=== PATIENT | female | born 1940 | race Two or more races ===

== ENCOUNTER 2017-04-23 10:11 | Inpatient (IN) | payer OTHER ==
--- NOTE | 2017-04-23 10:59 | PDOC ---
Attending Attestation - Resident Resident Name: Audelia Moe - ED Attending Attestation I have performed the following: I have examined & evaluated the patient, The case was reviewed & discussed with the resident, I agree w/resident's findings & plan, Exceptions are as noted - HPI HPI: 04/23/17 11:16 76yo F no PMH p/w RUQ pain a/w nausea and 2 episodes of NBNB emesis. Pt had cup of chocolate for dinner. Also reports lightheadedness. Pain at times radiating to her back. Tried advil with no relief. Pain is sharp 8/10. Has never had similar pain in the past. No hx abd surgery. - Physicial Exam PE: 04/23/17 11:59 GENERAL: Awake, alert, and fully oriented, in no acute distress HEAD: No signs of trauma EYES: PERRLA, EOMI, sclera anicteric, conjunctiva clear ENT: Auricles normal inspection, hearing grossly normal, nares patent, oropharynx clear without exudates. Moist mucosa NECK: Normal ROM, supple, no lymphadenopathy, JVD, or masses LUNGS: Breath sounds equal, clear to auscultation bilaterally. No wheezes, and no crackles HEART: Regular rate and rhythm, normal S1 and S2, no murmurs, rubs or gallops ABDOMEN: Soft, +RUQ and RLQ ttp, upper>lower, normoactive bowel sounds. No guarding, no rebound. No masses EXTREMITIES: Normal range of motion, no edema. No clubbing or cyanosis. No cords, erythema, or tenderness NEUROLOGICAL: Normal speech, cranial nerves intact, negative pronator drift, 5/ 5 strength in all 4 extremities, normal sensation to light touch in all 4 extremities, normal cerebellar exam, normal gait, normal reflexes and tone SKIN: Warm, Dry, normal turgor, no rashes or lesions noted. - Medical Decision Making 04/23/17 12:00 76-year-old female who denies past medical history presents with R sided abdominal pain. Vitals wnl. Exam with RUQ and RLQ ttp. DDx includes but not limited to cholecystitis versus appendicitis versus colitis versus pancreatitis. Will check labs, UA and start with a right upper quadrant ultrasound. 04/23/17 17:[address] scan with intestinal narrowing concerning for local diverticulitis versus malignancy. Will treat for acute diverticulitis. I discussed these findings with the patient's son Roosevelt on the phone and stated that we will treat her diverticulitis with that she must follow-up with the GI doctor to be evaluated for cancer. Roosevelt reports he is on his way to the hospital. 04/23/17 19:04 Upon PO challenging the patient, she had multiple episodes of vomiting. She also began to report left sided abdominal pain. At this point the decision was made to admit the patient for further evaluation and management given her PO intolerance and recurrent pain. Case discussed in detail with admitting physician including history, physical exam and ancillary studies. Admitting physician has assumed care for the patient, will follow all pending diagnostics and will complete the evaluation and treatment.
[2017-04-23] MEDS ORDERED: ACETAMINOPHEN 1000 MG/100 ML VIAL (NON FORMULARY) IVPB ONE (11:27)
[2017-04-23] MEDS ORDERED: SODIUM CHLORIDE 0.9% 1000 ML INFUS.BAG IV ONE ×2 (11:27→18:25)
[2017-04-23] MEDS ORDERED: ONDANSETRON 4 MG/2 ML VIAL IVPUSH ONE ×2 (11:29→18:25)
[2017-04-23 12:04] LABS: BASOPHIL 0.5 % (0-2.0); MCH 28.9 pg (25.7-33.7); MEAN CELL VOLUME 87.5 fl (80-96); MEAN PLT VOLUME 7.2 fl (7.5-11.1); NEUTROPHILS 79.4 % (42.8-82.8); PLATELET COUNT 335 K/MM3 (134-434); RDW 13.5 % (11.6-15.6); WHITE BLOOD COUNT 7.8 K/mm3 (4.0-10.0)
[2017-04-23 12:26] LABS: ANION GAP 5 (8-16); CALCIUM 8.6 mg/dL (8.5-10.1); CO2 28 mmol/L (21-32); CREATININE 0.9 mg/dL (0.55-1.02); GLUCOSE,RANDOM 128 mg/dL (74-106); SGOT/AST 18 U/L (15-37); SGPT/ALT 30 U/L (12-78)
[2017-04-23 12:30] LABS: ALK PHOS 75 U/L (45-117); BILIRUBIN,TOTAL 0.9 mg/dL (0.2-1.0); CPK 86 IU/L (26-192); TOT PROT 7.5 g/dl (6.4-8.2); TROPONIN I < 0.02 ng/ml (0.00-0.05)
--- NOTE | 2017-04-23 13:13 | PDOC ---
History of Present Illness - General Chief Complaint: Pain Stated Complaint: ABD PAIN Time Seen by Provider: 04/23/17 10:43 History Source: Patient Exam Limitations: No Limitations - History of Present Illness Initial Comments: This is a 76 YOF with unremarkable PMH and no surgeries who p/w right-sided abdominal pain worse in the RLQ. The pain started last night at 10 pm and has been a constant 8/10 squeezing/pulsating since then, and radiates to the left upper back. She has haven Advil without relief. She also has had persistent nausea since the onset and two episodes of vomiting yesterday night. She notes mild dizziness and headache, but denies any fever, chills, dysuria, diarrhea, blood in the vomit or stool or urine, or other symptoms. She ate a cup of chocolate for dinner yesterday evening, but no additional greasy or unhealthy foods. Past History - Past Medical History Allergies/Adverse Reactions: Allergies Allergy/AdvReac Type Severity Reaction Status Date / Time No Known Allergies Allergy Verified 04/23/17 13:11 Home Medications: Ambulatory Orders Ciprofloxacin HCl [Cipro] 500 mg PO BID #14 tablet 04/23/17 Metronidazole 500 mg PO TID #20 tablet 04/23/17 COPD: No - Suicide/Smoking/Psychosocial Hx Smoking History: Never smoked Have you smoked in the past 12 months: No Information on smoking cessation initiated: No Hx Alcohol Use: No Drug/Substance Use Hx: No Substance Use Type: None Review of Systems - Review of Systems Constitutional: No: Chills, Fever, Unexplained wgt Loss HEENTM: No: Nose Congestion, Throat Pain Respiratory: No: Cough, Shortness of Breath Cardiac (ROS): No: Chest Pain, Palpitations ABD/GI: Yes: Nausea, Vomiting, Other (abdominal pain). No: Constipated, Diarrhea : No: Burning, Dysuria Musculoskeletal: Yes: Back Pain. No: Neck Pain Integumentary: No: Bruising, Rash Neurological: Yes: Headache, Dizziness. No: Numbness, Tingling, Weakness Endocrine: No: Unexplained Weight Gain, Unexplained Weight Loss *Physical Exam - Vital Signs Last Vital Signs Temp Pulse Resp BP Pulse Ox 98.4 F 72 17 152/92 98 04/23/17 10:15 04/23/17 10:15 04/23/17 10:15 04/23/17 10:15 04/23/17 10:15 - Physical Exam General Appearance: Yes: Nourished, Appropriately Dressed, Other (patient is well-appearing, conversive, no distress, answering appropriately, accompanied by son who is supportive). No: Apparent Distress HEENT: positive: EOMI, MAT, Normal Voice, Hearing Grossly Normal. negative: Scleral Icterus (R), Scleral Icterus (L), Nasal Congestion Neck: positive: Trachea midline, Supple. negative: Tender, Rigid Respiratory/Chest: positive: Lungs Clear, Normal Breath Sounds. negative: Respiratory Distress, Crackles, Rhonchi, Stridor, Wheezing Cardiovascular: positive: Regular Rhythm, Regular Rate. negative: Murmur Gastrointestinal/Abdominal: positive: Normal Bowel Sounds, Tender (mild RLQ ttp) , Soft. negative: Organomegaly, Pulsatile Mass, Distended, Guarding, Rebound, Hernia Musculoskeletal: positive: Normal Inspection. negative: Decreased Range of Motion, Vertebral Tenderness Extremity: positive: Normal Capillary Refill, Normal Inspection, Normal Range of Motion. negative: Tender, Cyanosis Integumentary: positive: Normal Color, Dry, Warm. negative: Erythema, Rash, Bruising Neurologic: positive: mantel craftsman II-XII NML intact, Fully Oriented, Alert, Normal Mood/ Affect, Normal Response, Motor Strength 5/5 ED Treatment Course - LABORATORY CBC & Chemistry Diagram: 04/24/17 06:30 04/24/17 06:30 - ADDITIONAL ORDERS Additional order review: Laboratory Results 04/23/17 04/23/17 04/23/17 12:00 12:00 12:00 Sodium 136 Potassium 4.0 Chloride 103 Carbon Dioxide 28 Anion Gap 5 L BUN 18 Creatinine 0.9 Creat Clearance w eGFR > 60 Random Glucose 128 H Lactic Acid 1.7 Calcium 8.6 Total Bilirubin 0.9 AST 18 ALT 30 Alkaline Phosphatase 75 Creatine Kinase 86 Troponin I < 0.02 Total Protein 7.5 Albumin 4.0 Lipase 148 04/23/17 12:00 RBC 4.98 MCV 87.5 MCHC 33.0 RDW 13.5 MPV 7.2 L Neutrophils % 79.4 Lymphocytes % 18.0 Monocytes % 2.1 L Eosinophils % 0.0 Basophils % 0.5 - RADIOLOGY Radiology Studies Ordered: Category Date Time Status ABDOMEN US -LIMITED [US] Stat Ultrasound 04/23/17 11:25 Ordered Medical Decision Making - Medical Decision Making 76 YOF p/w RUQ and RLQ pain, nausea, vomiting, dizziness, COLMENARES. Never had colonoscopy in her life. On exam she has RLQ ttp, no peritoneal signs, 152/92 otherwise VS wnl. DDX IBNLT cholecystitis, appendicitis, diverticulitis, colitis, malignancy, pancreatitis, PUD, gastritis, etc. Ordered is CBCD, CMP, lipase, cardiac panel, UA, EKG, tylenol, zofran, fluids. 04/23/17 16:47 Pt states pain well controlled now. CT resulted with narrowing of a focus in ascending colon possibly focal diverticulitis but could be malignancy. Patient wishes to eat and to go home. States she can follow up next Thursday with GI. Will treat for diverticulitis now with instructions to follow up closely with GI. Referral info given for GI clinic. Return precautions discussed and she will return for fever, night sweats, weight loss, rectal bleeding, LOC, etc. 04/23/17 18:[address] Phuc Louis whose team will be consulting tomorrow. Dr. Louis recommends NPO, IVF, Levaquin, and Flagyl. 04/23/17 19:00 Patient has been moved to 9B d/t vomiting and increased abdominal pain. Patient is given IV Zofran, Morphine, IVF. Ordered is lactate and CBCD, EKG. Patient's care is signed out to Dr. Irizarry at the end of my shift. *DC/Admit/Observation/Transfer Diagnosis at time of Disposition: Diverticulitis - Discharge Dispostion Condition at time of disposition: Guarded Admit: Yes - Prescriptions - Referrals - Patient Instructions - Post Discharge Activity
[2017-04-23 14:04] LABS: URINE APPEARANCE CLEAR; URINE BILIRUBIN NEGATIVE (NEGATIVE); URINE BLOOD NEGATIVE (NEGATIVE); URINE COLOR STRAW; URINE GLUCOSE (UA) 1+ (NEGATIVE); URINE KETONE TRACE (NEGATIVE); URINE NITRITE NEGATIVE (NEGATIVE); URINE PROTEIN NEGATIVE (NEGATIVE); URINE UROBILINOGEN NEGATIVE mg/dL (0.2-1.0)
--- NOTE | 2017-04-23 16:21 | EKG ---
Test Reason : Blood Pressure : / mmHG Vent. Rate : 091 BPM Atrial Rate : 091 BPM P-R Int : 158 ms QRS Dur : 070 ms QT Int : 376 ms P-R-T Axes : 043 -13 048 degrees QTc Int : 462 ms NORMAL SINUS RHYTHM NORMAL ECG WHEN COMPARED WITH ECG OF 12-APR-2008 08:47, NONSPECIFIC T WAVE ABNORMALITY NO LONGER EVIDENT IN INFERIOR LEADS NONSPECIFIC T WAVE ABNORMALITY NOW EVIDENT IN LATERAL LEADS Confirmed by CHARO DAVIDSON, WENDY ([id number]) on 04/23/2017 4:21:21 PM Referred By: Confirmed By:WENDY MANCILLA MD
[2017-04-23] MEDS ORDERED: metroNIDAZOLE 250 MG TABLET PO ONE (17:23)
[2017-04-23] MEDS ORDERED: CIPROFLOXACIN 500 MG TABLET (RESTRICTED TO ID) PO ONE (17:23)
[2017-04-23] MEDS ORDERED: metroNIDAZOLE 250 MG TABLET ONE (18:01)
[2017-04-23] MEDS ORDERED: morphine CARPU-JECT 4 MG/1 ML DISP.SYRIN IVPUSH ONE (18:28)
[2017-04-23] MEDS ORDERED: ONDANSETRON 4 MG/2 ML VIAL ONE (18:28)
[2017-04-23] MEDS ORDERED: morphine SULFATE 4 MG/ML VIAL ONE (18:30)
[2017-04-23] MEDS ORDERED: METRONIDAZOLE 500 MG PREMIXED 500 MG/100 ML MG IVPB ONE ×2 (18:31→19:00)
[2017-04-23] MEDS ORDERED: LEVOFLOXACIN 750 MG IVPB 750 MG/150 ML BAG IVPB ONE ×2 (18:31→19:00)
[2017-04-23 19:13] LABS: URINE LEUK ESTERASE Negative (NEGATIVE)
[2017-04-23 19:41] LABS: BASOPHIL 0.6 % (0-2.0); EOSINOPHIL 0.1 % (0-4.5); MCH 29.5 pg (25.7-33.7); MCHC 33.4 g/dl (32.0-36.0); MEAN CELL VOLUME 88.1 fl (80-96); NEUTROPHILS 78.9 % (42.8-82.8); RDW 13.5 % (11.6-15.6); WHITE BLOOD COUNT 9.4 K/mm3 (4.0-10.0)
--- NOTE | 2017-04-23 20:16 | PN ---
Teaching Attending Note Name of Resident: Oly Cm ATTENDING PHYSICIAN STATEMENT I saw and evaluated the patient. I reviewed the resident's note and discussed the case with the resident. I agree with the resident's findings and plan as documented. SUBJECTIVE: OBJECTIVE: Vital Signs Temperature 98.4 F 04/23/17 10:15 Pulse Rate 86 04/23/17 19:30 Respiratory Rate 16 04/23/17 19:30 Blood Pressure 151/99 04/23/17 19:30 O2 Sat by Pulse Oximetry (%) 95 04/23/17 19:30 CBC, BMP 04/23/17 19:28 04/23/17 12:00 Urine Test Results Urine Color Straw 04/23/17 13:46 Urine Appearance Clear 04/23/17 13:46 Urine pH 7.0 (5.0-8.0) 04/23/17 13:46 Ur Specific [place] 1.012 (1.001-1.035) 04/23/17 13:46 Urine Protein Negative (NEGATIVE) 04/23/17 13:46 Urine Glucose (UA) 1+ (NEGATIVE) H 04/23/17 13:46 Urine Ketones Trace (NEGATIVE) H 04/23/17 13:46 Urine Blood Negative (NEGATIVE) 04/23/17 13:46 Urine Nitrite Negative (NEGATIVE) 04/23/17 13:46 Urine Bilirubin Negative (NEGATIVE) 04/23/17 13:46 Ur Leukocyte Esterase Negative (NEGATIVE) 04/23/17 13:46 ASSESSMENT AND PLAN:
--- NOTE | 2017-04-23 20:42 | HP ---
CHIEF COMPLAINT: PCP: HISTORY OF PRESENT ILLNESS: ER course was notable for: (1) (2) (3) Recent Travel: PAST MEDICAL HISTORY: PAST SURGICAL HISTORY: Social History: Smoking: Alcohol: Drugs: Family History: Allergies No Known Allergies Allergy (Verified 04/23/17 13:11) HOME MEDICATIONS: Home Medications Medication Instructions Recorded Ciprofloxacin HCl [Cipro] 500 mg PO BID #14 tablet 04/23/17 Metronidazole 500 mg PO TID #20 tablet 04/23/17 REVIEW OF SYSTEMS CONSTITUTIONAL: Absent: fever, chills, diaphoresis, generalized weakness, malaise, loss of appetite, weight change HEENT: Absent: rhinorrhea, nasal congestion, throat pain, throat swelling, difficulty swallowing, mouth swelling, ear pain, eye pain, visual changes CARDIOVASCULAR: Absent: chest pain, syncope, palpitations, irregular heart rate, lightheadedness , peripheral edema RESPIRATORY: Absent: cough, shortness of breath, dyspnea with exertion, orthopnea, wheezing, stridor, hemoptysis GASTROINTESTINAL: Absent: abdominal pain, abdominal distension, nausea, vomiting, diarrhea, constipation, melena, hematochezia GENITOURINARY: Absent: dysuria, frequency, urgency, hesitancy, hematuria, flank pain, genital pain MUSCULOSKELETAL: Absent: myalgia, arthralgia, joint swelling, back pain, neck pain SKIN: Absent: rash, itching, pallor HEMATOLOGIC/IMMUNOLOGIC: Absent: easy bleeding, easy bruising, lymphadenopathy, frequent infections ENDOCRINE: Absent: unexplained weight gain, unexplained weight loss, heat intolerance, cold intolerance NEUROLOGIC: Absent: headache, focal weakness or paresthesias, dizziness, unsteady gait, seizure, mental status changes, bladder or bowel incontinence PSYCHIATRIC: Absent: anxiety, depression, suicidal or homicidal ideation, hallucinations. PHYSICAL EXAMINATION Vital Signs - 24 hr 04/23/17 04/23/17 10:15 19:30 Temperature 98.4 F Pulse Rate 72 Pulse Rate [ 86 Right] Respiratory 17 16 Rate Blood Pressure 152/92 Blood Pressure 151/99 [Left Arm] O2 Sat by Pulse 98 95 Oximetry (%) GENERAL: Awake, alert, and fully oriented, in no acute distress. HEAD: Normal with no signs of trauma. EYES: Pupils equal, round and reactive to light, extraocular movements intact, sclera anicteric, conjunctiva clear. No lid lag. EARS, NOSE, THROAT: Ears normal, nares patent, oropharynx clear without exudates. Moist mucous membranes. NECK: Normal range of motion, supple without lymphadenopathy, JVD, or masses. LUNGS: Breath sounds equal, clear to auscultation bilaterally. No wheezes, and no crackles. No accessory muscle use. HEART: Regular rate and rhythm, normal S1 and S2 without murmur, rub or gallop. ABDOMEN: Soft, nontender, not distended, normoactive bowel sounds, no guarding, no rebound, no masses. No hepatomegaly or splenomegaly. MUSCULOSKELETAL: Normal range of motion at all joints. No bony deformities or tenderness. No CVA tenderness. UPPER EXTREMITIES: 2+ pulses, warm, well-perfused. No cyanosis. No clubbing. No peripheral edema. LOWER EXTREMITIES: 2+ pulses, warm, well-perfused. No calf tenderness. No peripheral edema. NEUROLOGICAL: Cranial nerves II-XII intact. Normal speech. Normal gait. PSYCHIATRIC: Cooperative. Good eye contact. Appropriate mood and affect. SKIN: Warm, dry, normal turgor, no rashes or lesions noted, normal capillary refill. Laboratory Results - last 24 hr 04/23/17 04/23/17 04/23/17 12:00 12:00 12:00 WBC 7.8 RBC 4.98 Hgb 14.4 Hct 43.6 MCV 87.5 MCH 28.9 MCHC 33.0 RDW 13.5 Plt Count 335 MPV 7.2 L Neutrophils % 79.4 Lymphocytes % 18.0 Monocytes % 2.1 L Eosinophils % 0.0 Basophils % 0.5 Platelet Comment Sodium 136 Potassium 4.0 Chloride 103 Carbon Dioxide 28 Anion Gap 5 L BUN 18 Creatinine 0.9 Creat Clearance w eGFR > 60 Random Glucose 128 H Lactic Acid Calcium 8.6 Total Bilirubin 0.9 AST 18 ALT 30 Alkaline Phosphatase 75 Creatine Kinase 86 Troponin I < 0.02 Total Protein 7.5 Albumin 4.0 Lipase 148 Urine Color Urine Appearance Urine pH Ur Specific [place] Urine Protein Urine Glucose (UA) Urine Ketones Urine Blood Urine Nitrite Urine Bilirubin Urine Urobilinogen Ur Leukocyte Esterase 04/23/17 04/23/17 04/23/17 12:00 13:46 19:28 WBC 9.4 RBC 4.43 Hgb 13.0 Hct 39.0 MCV 88.1 MCH 29.5 MCHC 33.4 RDW 13.5 Plt Count No Result Required. MPV Neutrophils % 78.9 Lymphocytes % 13.1 D Monocytes % 7.3 D Eosinophils % 0.1 D Basophils % 0.6 Platelet Comment Sodium Potassium Chloride Carbon Dioxide Anion Gap BUN Creatinine Creat Clearance w eGFR Random Glucose Lactic Acid 1.7 Calcium Total Bilirubin AST ALT Alkaline Phosphatase Creatine Kinase Troponin I Total Protein Albumin Lipase Urine Color Straw Urine Appearance Clear Urine pH 7.0 Ur Specific [place] 1.012 Urine Protein Negative Urine Glucose (UA) 1+ H Urine Ketones Trace H Urine Blood Negative Urine Nitrite Negative Urine Bilirubin Negative Urine Urobilinogen Negative Ur Leukocyte Esterase Negative 04/23/17 19:28 WBC RBC Hgb Hct MCV MCH MCHC RDW Plt Count MPV Neutrophils % Lymphocytes % Monocytes % Eosinophils % Basophils % Platelet Comment Sodium Potassium Chloride Carbon Dioxide Anion Gap BUN Creatinine Creat Clearance w eGFR Random Glucose Lactic Acid 1.2 Calcium Total Bilirubin AST ALT Alkaline Phosphatase Creatine Kinase Troponin I Total Protein Albumin Lipase Urine Color Urine Appearance Urine pH Ur Specific [place] Urine Protein Urine Glucose (UA) Urine Ketones Urine Blood Urine Nitrite Urine Bilirubin Urine Urobilinogen Ur Leukocyte Esterase ASSESSMENT/PLAN:
--- NOTE | 2017-04-23 22:04 | PDOC ---
*Physical Exam - Vital Signs Last Vital Signs Temp Pulse Resp BP Pulse Ox 98.4 F 84 16 137/83 95 04/23/17 10:15 04/23/17 20:48 04/23/17 20:48 04/23/17 20:48 04/23/17 20:48 ED Treatment Course - LABORATORY CBC & Chemistry Diagram: 04/23/17 19:28 04/23/17 12:00 - ADDITIONAL ORDERS Additional order review: Laboratory Results 04/23/17 04/23/17 04/23/17 13:46 12:00 12:00 Sodium Potassium Chloride Carbon Dioxide Anion Gap BUN Creatinine Creat Clearance w eGFR Random Glucose Lactic Acid 1.7 Calcium Total Bilirubin AST ALT Alkaline Phosphatase Creatine Kinase Troponin I Total Protein Albumin Lipase 148 Urine Color Straw Urine Appearance Clear Urine pH 7.0 Ur Specific [place] 1.012 Urine Protein Negative Urine Glucose (UA) 1+ H Urine Ketones Trace H Urine Blood Negative Urine Nitrite Negative Urine Bilirubin Negative Urine Urobilinogen Negative Ur Leukocyte Esterase Negative 04/23/17 12:00 Sodium 136 Potassium 4.0 Chloride 103 Carbon Dioxide 28 Anion Gap 5 L BUN 18 Creatinine 0.9 Creat Clearance w eGFR > 60 Random Glucose 128 H Lactic Acid Calcium 8.6 Total Bilirubin 0.9 AST 18 ALT 30 Alkaline Phosphatase 75 Creatine Kinase 86 Troponin I < 0.02 Total Protein 7.5 Albumin 4.0 Lipase Urine Color Urine Appearance Urine pH Ur Specific [place] Urine Protein Urine Glucose (UA) Urine Ketones Urine Blood Urine Nitrite Urine Bilirubin Urine Urobilinogen Ur Leukocyte Esterase 04/23/17 12:00 RBC 4.98 MCV 87.5 MCHC 33.0 RDW 13.5 MPV 7.2 L Neutrophils % 79.4 Lymphocytes % 18.0 Monocytes % 2.1 L Eosinophils % 0.0 Basophils % 0.5 - Medications Given in the ED: ED Medications Discontinued Medications Generic Name Dose Route Start Last Admin Trade Name Freq PRN Reason Stop Dose Admin Acetaminophen 1,000 mg 04/23/17 11:27 04/23/17 13:10 Ofirmev Injection - IVPB 04/23/17 11:28 1,000 mg ONCE ONE Administration Ciprofloxacin 500 mg 04/23/17 17:23 04/23/17 18:40 Cipro (Restricted To Id) PO 04/23/17 17:24 Not Given ONCE ONE Metronidazole 500 mg in 100 mls @ 100 mls/hr 04/23/17 18:31 04/23/17 19:06 Flagyl 500mg Premixed Ivpb - IVPB 04/23/17 19:30 100 mls/hr ONCE ONE Administration Levofloxacin 750 mg in 150 mls @ 100 mls/hr 04/23/17 18:31 04/23/17 19:40 Levaquin 750 Mg Premixed Ivpb - IVPB 04/23/17 20:00 100 mls/hr ONCE ONE Administration Metronidazole 500 mg 04/23/17 17:23 04/23/17 18:40 Flagyl - PO 04/23/17 17:24 Not Given ONCE ONE Morphine Sulfate 2 mg 04/23/17 18:28 04/23/17 18:40 Morphine Injection - IVPUSH 04/23/17 18:29 2 mg ONCE ONE Administration Ondansetron HCl 4 mg 04/23/17 11:29 04/23/17 13:10 Zofran Injection IVPUSH 04/23/17 11:30 4 mg ONCE ONE Administration Ondansetron HCl 4 mg 04/23/17 18:25 04/23/17 18:39 Zofran Injection IVPUSH 04/23/17 18:26 4 mg ONCE ONE Administration Sodium Chloride 1,000 ml 04/23/17 11:27 04/23/17 13:07 Normal Saline - IV 04/23/17 11:28 1,000 ml ONCE ONE Administration Sodium Chloride 1,000 ml 04/23/17 18:25 04/23/17 18:38 Normal Saline - IV 04/23/17 18:26 1,000 ml ONCE ONE Administration Medical Decision Making - Medical Decision Making 04/23/17 22:06 patient signed out from dr. Moe CBC, Lactate, improved. Patient admitted to Dr. Carlson for diverticulitis. *DC/Admit/Observation/Transfer Diagnosis at time of Disposition: Diverticulitis - Discharge Dispostion Condition at time of disposition: Guarded Admit: Yes - Prescriptions - Referrals - Patient Instructions - Post Discharge Activity
[2017-04-23] MEDS ORDERED: PROMETHAZINE HCL 25 MG/1 ML VIAL IVPUSH PRN (22:06)
[2017-04-23] MEDS ORDERED: ACETAMINOPHEN 1000 MG/100 ML VIAL (NON FORMULARY) IVPB PRN (22:19)
[2017-04-23 22:34] VITALS: BMI 29.3
[2017-04-23] MEDS: HEPARIN NA (PORCINE) 5,000 UNITS/ML 1ML VIAL SQ SCH (23:32)
[2017-04-23] MEDS: LACTATED RINGERS SOLUTION 1,000 ML IV SCH (23:33)
[2017-04-24] MEDS ORDERED: CEFEPIME 2 GM in DEXTROSE 5%-WATER - 100 ML IVPB ONE (00:30)
[2017-04-24] MEDS: morphine SULFATE 4 MG/ML VIAL IVPUSH PRN ×2 (00:53→12:57)
[2017-04-24] MEDS: METRONIDAZOLE 500 MG PREMIXED 500 MG/100 ML MG IVPB SCH ×4 (02:42→22:59)
[2017-04-24 08:20] LABS: ALBUMIN 3.6 g/dl (3.4-5.0); ANION GAP 9 (8-16); BASOPHIL 0.3 % (0-2.0); CALCIUM 8.4 mg/dL (8.5-10.1); CO2 25 mmol/L (21-32); EOSINOPHIL 0.3 % (0-4.5); GLUCOSE,RANDOM 99 mg/dL (74-106); MAGNESIUM 1.9 mg/dL (1.8-2.4); MCHC 33.1 g/dl (32.0-36.0); MEAN CELL VOLUME 87.6 fl (80-96); MEAN PLT VOLUME 8.2 fl (7.5-11.1); NEUTROPHILS 65.7 % (42.8-82.8); PLATELET COUNT 299 K/MM3 (134-434); RDW 13.5 % (11.6-15.6); SGOT/AST 18 U/L (15-37); SGPT/ALT 27 U/L (12-78); WHITE BLOOD COUNT 8.1 K/mm3 (4.0-10.0)
[2017-04-24 08:22] LABS: ALK PHOS 63 U/L (45-117); BILIRUBIN,TOTAL 1.3 mg/dL (0.2-1.0); TOT PROT 6.7 g/dl (6.4-8.2)
[2017-04-24] MEDS: HEPARIN NA (PORCINE) 5,000 UNITS/ML 1ML VIAL SQ SCH ×2 (09:53→22:59)
--- NOTE | 2017-04-24 10:03 | EKG ---
Test Reason : Blood Pressure : / mmHG Vent. Rate : 081 BPM Atrial Rate : 081 BPM P-R Int : 146 ms QRS Dur : 076 ms QT Int : 388 ms P-R-T Axes : 026 -16 030 degrees QTc Int : 450 ms NORMAL SINUS RHYTHM NORMAL ECG WHEN COMPARED WITH ECG OF 23-APR-2017 14:15, NO SIGNIFICANT CHANGE WAS FOUND Confirmed by ADELINA CRUZ MD ([id number]) on 04/24/2017 10:02:53 AM Referred By: Confirmed By:ADELINA CRUZ MD
--- NOTE | 2017-04-24 10:41 | HP ---
Admitting History and Physical - Admission History of Present Illness: This is a 76 YOF with unremarkable PMH and no surgeries who p/w right-sided abdominal pain worse in the RLQ. The pain started last night at 10 pm and has been a constant 8/10 squeezing/pulsating since then, and radiates to the left upper back. She has haven Advil without relief. She also has had persistent nausea since the onset and two episodes of vomiting yesterday night. She notes mild dizziness and headache, but denies any fever, chills, dysuria, diarrhea, blood in the vomit or stool or urine, or other symptoms. She ate a cup of chocolate for dinner yesterday evening, but no additional greasy or unhealthy foods in ER she got iv fluids, antiemetics, iv abx patient complaining of nausea and abdominal discomfort in bed History Source: Patient, Medical Record - Smoking History Smoking history: Never smoked Have you smoked in the past 12 months: No - Alcohol/Substance Use Hx Alcohol Use: No Home Medications - Allergies Allergies/Adverse Reactions: Allergies Allergy/AdvReac Type Severity Reaction Status Date / Time No Known Allergies Allergy Verified 04/23/17 13:11 - Home Medications Home Medications: Ambulatory Orders Ciprofloxacin HCl [Cipro] 500 mg PO BID #14 tablet 04/23/17 Metronidazole 500 mg PO TID #20 tablet 04/23/17 Review of Systems - Review of Systems Gastrointestinal: reports: Abdominal Pain, Nausea Physical Examination Vital Signs: Vital Signs Temperature 99 F 04/24/17 10:24 Pulse Rate 81 04/24/17 10:24 Respiratory Rate 18 04/24/17 10:24 Blood Pressure 123/63 04/24/17 10:24 O2 Sat by Pulse Oximetry (%) 95 04/23/17 20:48 Constitutional: Yes: Mild Distress Neck: Yes: Trachea Midline Cardiovascular: Yes: Regular Rate and Rhythm, S1, S2 Respiratory: Yes: CTA Bilaterally Gastrointestinal: Yes: Hyperactive Bowel Sounds, Tenderness (in the RLQ and LLQ) Edema: No Neurological: Yes: Alert, Oriented Labs: CBC, BMP 04/24/17 06:30 04/24/17 06:30 Imaging - Results Cat Scan: Report Reviewed (narrow irregularity of mid ascending colon) Problem List - Problems (1) Diverticulitis Assessment/Plan: iv abx iv hydration antiemetics pain control dvt ppx Code(s): K57.92 - DVTRCLI OF INTEST, PART UNSP, W/O PERF OR ABSCESS W/O BLEED (2) Abnormal computed tomography of gastrointestinal tract Assessment/Plan: appreciate GI eval start BRAT diet, iv hydration iv abx Code(s): R93.3 - ABNORMAL FINDINGS ON DX IMAGING OF PRT DIGESTIVE TRACT (3) Fluid in endometrial cavity Assessment/Plan: pelvic sono ordered Code(s): N85.9 - NONINFLAMMATORY DISORDER OF UTERUS, UNSPECIFIED
--- NOTE | 2017-04-24 11:28 | CON.GI ---
Consult Consult Specialty:: GI - History of Present Illness History of Present Illness: Chart reviewed. Events noted A 76 yof with acute onset abdominal pain 3 days ago with nausea and chills. The pain is generalized, deep, non-radiating, 10/10 at the onset, now 5/10. No diarrhea, joint, skin symptoms. No dysphagia, odynophagia, jaundice, melena, hematochezia. Cannot recall any unusual foods. no eating out, exposure to ill. No new medications, chronic NSAIDs, recent antibiotics. Never had a colonoscopy. A CT a/p showed an ascending colon inflammation. - History Source History Provided By: Patient Limitations to Obtaining History: Language Barrier (history obtained via transaltor) - Alcohol/Substance Use Hx Alcohol Use: No - Smoking History Smoking history: Never smoked Have you smoked in the past 12 months: No Home Medications - Allergies Allergies/Adverse Reactions: Allergies Allergy/AdvReac Type Severity Reaction Status Date / Time No Known Allergies Allergy Verified 04/23/17 13:11 - Home Medications Home Medications: Ambulatory Orders Ciprofloxacin HCl [Cipro] 500 mg PO BID #14 tablet 04/23/17 Metronidazole 500 mg PO TID #20 tablet 04/23/17 Family Disease History - Family Disease History Family History: Unremarkable (non-contributory) Review of Systems Findings/Remarks: Please refer to H&P - Review of Systems Constitutional: reports: Chills Physical Exam-GI Vital Signs: Vital Signs Temperature 99 F 04/24/17 10:24 Pulse Rate 81 04/24/17 10:24 Respiratory Rate 18 04/24/17 10:24 Blood Pressure 123/63 04/24/17 10:24 O2 Sat by Pulse Oximetry (%) 95 04/23/17 20:48 Labs: CBC, BMP 04/24/17 06:30 04/24/17 06:30 Imaging - Results Cat Scan: Report Reviewed Problem List - Problems (1) Abnormal computed tomography of gastrointestinal tract Code(s): R93.3 - ABNORMAL FINDINGS ON DX IMAGING OF PRT DIGESTIVE TRACT Assessment/Plan Acute inflammation likely. diverticulitis, vs colitis. Cannot rule out neoplasm. Never had colonoscopy. No obvious red flags in history Agree with cipro/flagyl would add antiemetic PRN PO/IV hydration BRAT diet Colonoscopy in 4 weeks if good response to Abx, otherwise will plan to do it on this admission Discussed with the patient
[2017-04-24] MEDS ORDERED: LEVOFLOXACIN 500 MG IVPB 500 MG/100 ML BAG IVPB SCH (12:45)
[2017-04-24] MEDS: LEVOFLOXACIN 500 MG IVPB 500 MG/100 ML BAG IVPB SCH (21:38)
[2017-04-24] MEDS: LACTATED RINGERS SOLUTION 1,000 ML IV SCH (21:38)
[2017-04-25] MEDS: METRONIDAZOLE 500 MG PREMIXED 500 MG/100 ML MG IVPB SCH ×4 (03:40→21:40)
[2017-04-25] MEDS: PROMETHAZINE HCL 25 MG/1 ML VIAL IM PRN ×2 (04:19→21:44)
[2017-04-25] MEDS: ONDANSETRON 4 MG TABLET PO PRN ×2 (06:25→18:12)
[2017-04-25] MEDS: LEVOFLOXACIN 500 MG IVPB 500 MG/100 ML BAG IVPB SCH (09:11)
[2017-04-25] MEDS: HEPARIN NA (PORCINE) 5,000 UNITS/ML 1ML VIAL SQ SCH ×2 (09:11→21:41)
--- NOTE | 2017-04-25 12:37 | PN ---
Progress Note, Physician History of Present Illness: Chart reviewed. Nausea this am, no BMs x 3 days. Wants regular food. Still c/o RLQ abdominal tenderness. Abnormal endometrium on pelvic US - Current Medication List Current Medications: Active Medications Acetaminophen (Ofirmev Injection -) 1,000 mg IVPB Q6H PRN PRN Reason: FEVER OR PAIN Cefepime HCl (Maxipime (Restricted To Id) -) 2 gm IVPB Q8H-IV [facility] PRN Reason: Protocol Heparin Sodium (Porcine) (Heparin -) 5,000 unit SQ BID [facility] Last Admin: 04/25/17 09:11 Dose: 5,000 unit Metronidazole (Flagyl 500mg Premixed Ivpb -) 500 mg in 100 mls @ 100 mls/hr IVPB Q6H-IV [facility] Last Admin: 04/25/17 09:11 Dose: 100 mls/hr Lactated Ringer's (Lactated Ringers Solution) 1,000 mls @ 75 mls/hr IV ASDIR [facility] Last Admin: 04/24/17 21:38 Dose: 75 mls/hr Levofloxacin (Levaquin 500 Mg Premixed Ivpb -) 500 mg in 100 mls @ 100 mls/hr IVPB DAILY [facility] Stop: 04/27/17 12:29 Last Admin: 04/25/17 09:11 Dose: 100 mls/hr Morphine Sulfate (Morphine Sulfate) 2 mg IVPUSH Q6H PRN PRN Reason: PAIN Last Admin: 04/24/17 12:57 Dose: 2 mg Ondansetron HCl (Zofran -) 8 mg PO Q8H PRN PRN Reason: NAUSEA Last Admin: 04/25/17 06:25 Dose: 8 mg Promethazine HCl (Phenergan Injection -) 12.5 mg IM Q6H PRN PRN Reason: NAUSEA AND/OR VOMITING Last Admin: 04/25/17 04:19 Dose: 12.5 mg - Objective Vital Signs: Vital Signs Temperature 98.1 F 04/25/17 10:00 Pulse Rate 101 H 04/25/17 10:00 Respiratory Rate 20 04/25/17 10:00 Blood Pressure 135/83 04/25/17 10:00 O2 Sat by Pulse Oximetry (%) 97 04/25/17 09:00 Constitutional: Yes: No Distress Eyes: Yes: Conjunctiva Clear HENT: Yes: Atraumatic Neck: Yes: Supple Cardiovascular: Yes: Regular Rate and Rhythm Respiratory: Yes: Regular Gastrointestinal: Yes: Normal Bowel Sounds, Soft, Distention, Tenderness (rlq). No: Melena, Rectal Bleeding Neurological: Yes: Alert, Oriented Labs: CBC, BMP 04/24/17 06:30 04/24/17 06:30 - ....Imaging Ultrasound: Report Reviewed (abnormal endometrium) Problem List - Problems (1) Abnormal computed tomography of gastrointestinal tract Code(s): R93.3 - ABNORMAL FINDINGS ON DX IMAGING OF PRT DIGESTIVE TRACT (2) Thickened endometrium Code(s): R93.8 - ABNORMAL FINDINGS ON DIAGNOSTIC IMAGING OF BODY STRUCTURES Assessment/Plan Acute inflammation likely. diverticulitis, vs colitis. Cannot rule out neoplasm. Never had colonoscopy. No obvious red flags in history Abnormal endometrium DELI MANAGER evaluation Continue ABx, antiemetics PO/IV hydration BRAT diet Colonoscopy in 4 weeks if good response to Abx, otherwise will plan to do it on this admission Discussed with the patient
--- NOTE | 2017-04-25 12:51 | PN ---
Progress Note, Physician Chief Complaint: MY FIRST ENCOUNTER WITH THIS PATIENT CHART AND NOTES REVIEWED C/O LOWER ABD PAIN - Current Medication List Current Medications: Active Medications Acetaminophen (Ofirmev Injection -) 1,000 mg IVPB Q6H PRN PRN Reason: FEVER OR PAIN Cefepime HCl (Maxipime (Restricted To Id) -) 2 gm IVPB Q8H-IV [facility] PRN Reason: Protocol Heparin Sodium (Porcine) (Heparin -) 5,000 unit SQ BID [facility] Last Admin: 04/25/17 09:11 Dose: 5,000 unit Metronidazole (Flagyl 500mg Premixed Ivpb -) 500 mg in 100 mls @ 100 mls/hr IVPB Q6H-IV [facility] Last Admin: 04/25/17 09:11 Dose: 100 mls/hr Lactated Ringer's (Lactated Ringers Solution) 1,000 mls @ 75 mls/hr IV ASDIR [facility] Last Admin: 04/24/17 21:38 Dose: 75 mls/hr Levofloxacin (Levaquin 500 Mg Premixed Ivpb -) 500 mg in 100 mls @ 100 mls/hr IVPB DAILY [facility] Stop: 04/27/17 12:29 Last Admin: 04/25/17 09:11 Dose: 100 mls/hr Morphine Sulfate (Morphine Sulfate) 2 mg IVPUSH Q6H PRN PRN Reason: PAIN Last Admin: 04/24/17 12:57 Dose: 2 mg Ondansetron HCl (Zofran -) 8 mg PO Q8H PRN PRN Reason: NAUSEA Last Admin: 04/25/17 06:25 Dose: 8 mg Polyethylene Glycol (Miralax (For Daily Use) -) 17 gm PO BID [facility] Promethazine HCl (Phenergan Injection -) 12.5 mg IM Q6H PRN PRN Reason: NAUSEA AND/OR VOMITING Last Admin: 04/25/17 04:19 Dose: 12.5 mg - Objective Vital Signs: Vital Signs Temperature 98.1 F 04/25/17 10:00 Pulse Rate 101 H 04/25/17 10:00 Respiratory Rate 20 04/25/17 10:00 Blood Pressure 135/83 04/25/17 10:00 O2 Sat by Pulse Oximetry (%) 97 04/25/17 09:00 Constitutional: Yes: Mild Distress Eyes: Yes: WNL HENT: Yes: WNL Neck: Yes: WNL Cardiovascular: Yes: WNL Respiratory: Yes: WNL Gastrointestinal: Yes: Distention, Tenderness Genitourinary: Yes: WNL Musculoskeletal: Yes: WNL Extremities: Yes: WNL Edema: No Peripheral Pulses WNL: Yes Integumentary: Yes: WNL Wound/Incision: Yes: Clean/Dry Neurological: Yes: WNL ...Motor Strength: WNL Psychiatric: Yes: WNL Labs: CBC, BMP 04/24/17 06:30 04/24/17 06:30 Problem List - Problems (1) Abnormal computed tomography of gastrointestinal tract Code(s): R93.3 - ABNORMAL FINDINGS ON DX IMAGING OF PRT DIGESTIVE TRACT (2) Diverticulitis Code(s): K57.92 - DVTRCLI OF INTEST, PART UNSP, W/O PERF OR ABSCESS W/O BLEED Assessment/Plan START DIET AND ADVANCE TOLERATED IV ABX GI CONSULT AND F/U APPRECIATED COLONOSCOPY OUTPATIENT
[2017-04-25] MEDS: POLYETHYLENE GLYCOL 3350 119 GM BTL PO SCH ×2 (12:54→21:41)
[2017-04-25] MEDS: CEFEPIME HCL 2 GM VIAL (RESTRICTED TO ID) IVPB SCH (15:33)
[2017-04-25] MEDS: LACTATED RINGERS SOLUTION 1,000 ML IV SCH ×2 (17:40→21:42)
[2017-04-26] MEDS: METRONIDAZOLE 500 MG PREMIXED 500 MG/100 ML MG IVPB SCH ×4 (02:52→21:33)
[2017-04-26] MEDS: LEVOFLOXACIN 500 MG IVPB 500 MG/100 ML BAG IVPB SCH (09:58)
[2017-04-26] MEDS: HEPARIN NA (PORCINE) 5,000 UNITS/ML 1ML VIAL SQ SCH ×2 (09:58→21:33)
--- NOTE | 2017-04-26 10:52 | PN ---
Progress Note, Physician Chief Complaint: AWAKE C/O ABD PAIN POOR APPETITE TODAY - Current Medication List Current Medications: Active Medications Heparin Sodium (Porcine) (Heparin -) 5,000 unit SQ BID [facility] Last Admin: 04/26/17 09:58 Dose: 5,000 unit Metronidazole (Flagyl 500mg Premixed Ivpb -) 500 mg in 100 mls @ 100 mls/hr IVPB Q6H-IV [facility] Last Admin: 04/26/17 09:58 Dose: 100 mls/hr Lactated Ringer's (Lactated Ringers Solution) 1,000 mls @ 75 mls/hr IV ASDIR [facility] Last Admin: 04/25/17 21:42 Dose: 75 mls/hr Levofloxacin (Levaquin 500 Mg Premixed Ivpb -) 500 mg in 100 mls @ 100 mls/hr IVPB DAILY [facility] Stop: 04/27/17 12:29 Last Admin: 04/26/17 09:58 Dose: 100 mls/hr Morphine Sulfate (Morphine Sulfate) 2 mg IVPUSH Q6H PRN PRN Reason: PAIN Last Admin: 04/24/17 12:57 Dose: 2 mg Ondansetron HCl (Zofran -) 8 mg PO Q8H PRN PRN Reason: NAUSEA Last Admin: 04/25/17 18:12 Dose: 8 mg Polyethylene Glycol (Miralax (For Daily Use) -) 17 gm PO BID [facility] Last Admin: 04/25/17 21:41 Dose: 17 gm Promethazine HCl (Phenergan Injection -) 12.5 mg IM Q6H PRN PRN Reason: NAUSEA AND/OR VOMITING Last Admin: 04/25/17 21:44 Dose: 12.5 mg - Objective Vital Signs: Vital Signs Temperature 98.6 F 04/26/17 06:29 Pulse Rate 89 04/26/17 06:29 Respiratory Rate 20 04/26/17 06:29 Blood Pressure 99/63 04/26/17 06:29 O2 Sat by Pulse Oximetry (%) 98 04/25/17 21:00 Constitutional: Yes: Mild Distress Eyes: Yes: WNL HENT: Yes: WNL Neck: Yes: WNL Cardiovascular: Yes: WNL Respiratory: Yes: WNL Gastrointestinal: Yes: Tenderness Genitourinary: Yes: WNL Musculoskeletal: Yes: WNL Extremities: Yes: WNL Edema: No Peripheral Pulses WNL: Yes Integumentary: Yes: WNL Wound/Incision: Yes: Clean/Dry Neurological: Yes: WNL ...Motor Strength: WNL Psychiatric: Yes: WNL Labs: CBC, BMP 04/24/17 06:30 04/24/17 06:30 Problem List - Problems (1) Abnormal computed tomography of gastrointestinal tract Code(s): R93.3 - ABNORMAL FINDINGS ON DX IMAGING OF PRT DIGESTIVE TRACT (2) Diverticulitis Code(s): K57.92 - DVTRCLI OF INTEST, PART UNSP, W/O PERF OR ABSCESS W/O BLEED Assessment/Plan START DIET AND ADVANCE TOLERATED IV ABX GI CONSULT AND F/U APPRECIATED COLONOSCOPY OUTPATIENT CHECK LABS IN AM WITH ESR/CRP REPEAT CT ABD IF NOT IMPROVED BY TOMORROW
[2017-04-26] MEDS: POLYETHYLENE GLYCOL 3350 119 GM BTL PO SCH ×2 (10:58→22:00)
--- NOTE | 2017-04-26 11:27 | CONSULT ---
Consult Consult Specialty:: general surgery Referred by:: nelda aragon Reason for Consultation:: abdominal pain - History of Present Illness Chief Complaint: abdomihnal pain History of Present Illness: 76 yo PMH obesity and chronic constipation presents with acute onset abdominal pain 3 days ago. She has never has a previous episode of similar pain. She denied any associated fever or chills. The pain was constant, generalized, deep, non-radiating, 10/10 at the onset, and is now focal to the right abdomen and rated 5/10. The only relief came after taking pain medication in the hospital. She denied any nausea vomiting, and report no BM since her admission. He usual BM are hard and she alway has trouble passing stool. She has not had previous abdominal surgery and has never had a colonoscopy. she denies any recent weight loss. A CT a/p showed an ascending colon inflammation. we were asked to assess - History Source History Provided By: Patient, Family Member Limitations to Obtaining History: No Limitations - Alcohol/Substance Use Hx Alcohol Use: No - Smoking History Smoking history: Never smoked Have you smoked in the past 12 months: No Home Medications - Allergies Allergies/Adverse Reactions: Allergies Allergy/AdvReac Type Severity Reaction Status Date / Time No Known Allergies Allergy Verified 04/23/17 13:11 - Home Medications Home Medications: Ambulatory Orders Ciprofloxacin HCl [Cipro] 500 mg PO BID #14 tablet 04/23/17 Metronidazole 500 mg PO TID #20 tablet 04/23/17 Review of Systems - Review of Systems Constitutional: denies: Chills, Fever, Malaise Eyes: denies: Blurred Vision, Recent Change in Vision HENT: denies: Difficult Swallowing, Throat Pain Neck: denies: Lumps, Swollen Glands Cardiovascular: denies: Chest Pain, Palpitations Respiratory: denies: Cough, SOB Gastrointestinal: reports: Constipation (often has difficulty passting stool and usually produces hard stool). denies: Indigestion, Melena, Rectal Bleeding Genitourinary: denies: Burning, Discharge Musculoskeletal: denies: Muscle Pain, Muscle Weakness Integumentary: denies: Lesions, Rash Neurological: denies: Headache, Syncope Endocrine: denies: Unexplained Weight Gain, Unexplained Weight Loss Hematology/Lymphatic: denies: Easily Bruised, Excessive Bleeding Psychiatric: denies: Anxiety, Depression Physical Exam Vital Signs: Vital Signs Temperature 98.6 F 04/26/17 06:29 Pulse Rate 89 04/26/17 06:29 Respiratory Rate 20 04/26/17 06:29 Blood Pressure 99/63 04/26/17 06:29 O2 Sat by Pulse Oximetry (%) 98 04/25/17 21:00 Constitutional: Yes: Well Nourished, No Distress, Calm, Obese Eyes: Yes: Conjunctiva Clear, EOM Intact HENT: Yes: Atraumatic, Normocephalic Neck: Yes: Supple, Trachea Midline Cardiovascular: Yes: Regular Rate and Rhythm, S1, S2. No: Murmur Respiratory: Yes: Regular, CTA Bilaterally Gastrointestinal: Yes: Normal Bowel Sounds, Soft, Abdomen, Obese, Hernia ( supraumbilical hernia, fat contraining, reducible), Tenderness (right upper quardant), Other (-jaramillo's sign). No: Tenderness, Epigastrium, Tenderness, Rebound ...Rectal Exam: Yes: Sphincter Tone Normal, Other (no gross blood). No: Mass Musculoskeletal: No: Muscle Pain, Muscle Weakness Extremities: No: Cool, Cyanosis Edema: No Peripheral Pulses WNL: No Integumentary: No: Bruising, Rash Neurological: Yes: Alert, Oriented Psychiatric: Yes: Alert, Oriented Labs: CBC, BMP 04/24/17 06:30 04/24/17 06:30 Imaging - Results Cat Scan: Report Reviewed, Image Reviewed (ascentic colon near hepatic flexure area of inflamation) Problem List - Problems (1) Diverticulitis Assessment/Plan: 76yo female obesity and constipation presents with first episode of acute divertculitis, no previous colonoscopy NPO and IVF hydration IV antibiotics (Levaquin and Flagyl) Serial abdominal exams Tumor markers sent with AM labs (given coincident gynecologic and intestinal findings on imaging) Consider clear liquid diet if pain is not worsening GI follow-up for colonoscopy 6 week after this episode Code(s): K57.92 - DVTRCLI OF INTEST, PART UNSP, W/O PERF OR ABSCESS W/O BLEED (2) Constipation Assessment/Plan: increase dietary fiber, improved hydration, incorporate a stool softner Code(s): K59.00 - CONSTIPATION, UNSPECIFIED (3) Thickened endometrium Code(s): R93.8 - ABNORMAL FINDINGS ON DIAGNOSTIC IMAGING OF BODY STRUCTURES (4) Obesity (BMI 30-39.9) Code(s): E66.9 - OBESITY, UNSPECIFIED
--- NOTE | 2017-04-26 15:32 | PN ---
Progress Note, Physician History of Present Illness: Chart reviewed. Pain improved. No events. No BMs. Abnormal endometrium on pelvic US - Current Medication List Current Medications: Active Medications Heparin Sodium (Porcine) (Heparin -) 5,000 unit SQ BID COUNTS [facility]CLUDE 234 BEDS AT [facility] Last Admin: 04/26/17 09:58 Dose: 5,000 unit Metronidazole (Flagyl 500mg Premixed Ivpb -) 500 mg in 100 mls @ 100 mls/hr IVPB Q6H-IV COUNTS INCLUDE 234 BEDS AT THE [facility] Last Admin: 04/26/17 14:34 Dose: 100 mls/hr Lactated Ringer's (Lactated Ringers Solution) 1,000 mls @ 75 mls/hr IV ASDIR COUNTS INCLUDE 234 BEDS AT THE [facility] Last Admin: 04/25/17 21:42 Dose: 75 mls/hr Levofloxacin (Levaquin 500 Mg Premixed Ivpb -) 500 mg in 100 mls @ 100 mls/hr IVPB DAILY COUNTS INCLUDE 234 BEDS AT THE [facility] Stop: 04/27/17 12:29 Last Admin: 04/26/17 09:58 Dose: 100 mls/hr Morphine Sulfate (Morphine Sulfate) 2 mg IVPUSH Q6H PRN PRN Reason: PAIN Last Admin: 04/24/17 12:57 Dose: 2 mg Ondansetron HCl (Zofran -) 8 mg PO Q8H PRN PRN Reason: NAUSEA Last Admin: 04/25/17 18:12 Dose: 8 mg Polyethylene Glycol (Miralax (For Daily Use) -) 17 gm PO BID COUNTS INCLUDE 234 BEDS AT [facility] Last Admin: 04/26/17 10:58 Dose: 17 gm Promethazine HCl (Phenergan Injection -) 12.5 mg IM Q6H PRN PRN Reason: NAUSEA AND/OR VOMITING Last Admin: 04/25/17 21:44 Dose: 12.5 mg - Objective Vital Signs: Vital Signs Temperature 98.5 F 04/26/17 14:26 Pulse Rate 96 H 04/26/17 14:26 Respiratory Rate 20 04/26/17 14:26 Blood Pressure 109/68 04/26/17 14:26 O2 Sat by Pulse Oximetry (%) 98 04/25/17 21:00 Constitutional: Yes: No Distress, Calm Gastrointestinal: Yes: Tenderness (RLQ/RUQ) Labs: CBC, BMP 04/24/17 06:30 04/24/17 06:30 Problem List - Problems (1) Abnormal computed tomography of gastrointestinal tract Code(s): R93.3 - ABNORMAL FINDINGS ON DX IMAGING OF PRT DIGESTIVE TRACT (2) Thickened endometrium Code(s): R93.8 - ABNORMAL FINDINGS ON DIAGNOSTIC IMAGING OF BODY STRUCTURES Assessment/Plan DUE DILIGENCE 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
[2017-04-26] MEDS: PROMETHAZINE HCL 25 MG/1 ML VIAL IM PRN ×2 (18:13→21:34)
[2017-04-26] MEDS: morphine SULFATE 4 MG/ML VIAL IVPUSH PRN (21:34)
[2017-04-26] MEDS: LACTATED RINGERS SOLUTION 1,000 ML IV SCH (22:17)
[2017-04-27] MEDS: METRONIDAZOLE 500 MG PREMIXED 500 MG/100 ML MG IVPB SCH ×4 (03:17→20:44)
[2017-04-27 07:19] LABS: MCHC 34.2 g/dl (32.0-36.0); MEAN CELL VOLUME 87.7 fl (80-96); MEAN PLT VOLUME 7.8 fl (7.5-11.1); PLATELET COUNT 270 K/MM3 (134-434); RDW 13.5 % (11.6-15.6)
[2017-04-27 07:47] LABS: ALBUMIN 2.9 g/dl (3.4-5.0); ALK PHOS 45 U/L (45-117); ANION GAP 5 (8-16); BILIRUBIN,TOTAL 0.7 mg/dL (0.2-1.0); CALCIUM 8.3 mg/dL (8.5-10.1); CO2 31 mmol/L (21-32); GLUCOSE,RANDOM 102 mg/dL (74-106); SGOT/AST 12 U/L (15-37); SGPT/ALT 16 U/L (12-78); TOT PROT 5.3 g/dl (6.4-8.2)
--- NOTE | 2017-04-27 08:29 | PN ---
Progress Note, Physician History of Present Illness: Chart reviewed. Pain improved. few episodes of vomiting last night. Had a large BM. Abnormal endometrium on pelvic US - Current Medication List Current Medications: Active Medications Heparin Sodium (Porcine) (Heparin -) 5,000 unit SQ BID [facility] Last Admin: 04/26/17 21:33 Dose: 5,000 unit Metronidazole (Flagyl 500mg Premixed Ivpb -) 500 mg in 100 mls @ 100 mls/hr IVPB Q6H-IV [facility] Last Admin: 04/27/17 03:17 Dose: 100 mls/hr Lactated Ringer's (Lactated Ringers Solution) 1,000 mls @ 75 mls/hr IV ASDIR [facility] Last Admin: 04/26/17 22:17 Dose: 75 mls/hr Levofloxacin (Levaquin 500 Mg Premixed Ivpb -) 500 mg in 100 mls @ 100 mls/hr IVPB DAILY [facility] Stop: 04/27/17 12:29 Last Admin: 04/26/17 09:58 Dose: 100 mls/hr Morphine Sulfate (Morphine Sulfate) 2 mg IVPUSH Q6H PRN PRN Reason: PAIN Last Admin: 04/26/17 21:34 Dose: 2 mg Ondansetron HCl (Zofran -) 8 mg PO Q8H PRN PRN Reason: NAUSEA Last Admin: 04/25/17 18:12 Dose: 8 mg Polyethylene Glycol (Miralax (For Daily Use) -) 17 gm PO BID [facility] Last Admin: 04/26/17 22:00 Dose: 17 gm Promethazine HCl (Phenergan Injection -) 12.5 mg IM Q6H PRN PRN Reason: NAUSEA AND/OR VOMITING Last Admin: 04/26/17 21:34 Dose: 12.5 mg - Objective Vital Signs: Vital Signs Temperature 97.8 F 04/27/17 05:30 Pulse Rate 85 04/27/17 05:30 Respiratory Rate 18 04/27/17 05:30 Blood Pressure 111/72 04/27/17 05:30 O2 Sat by Pulse Oximetry (%) 98 04/26/17 20:25 Constitutional: Yes: No Distress, Calm Gastrointestinal: Yes: Tenderness (LLQ mild) Neurological: Yes: Alert, Oriented Labs: CBC, BMP 04/27/17 05:35 04/27/17 05:35 Laboratory Results - last 24 hr 04/27/17 04/27/17 04/27/17 05:35 05:35 05:35 WBC 6.0 RBC 4.30 Hgb 12.9 Hct 37.7 MCV 87.7 MCH 30.0 MCHC 34.2 RDW 13.5 Plt Count 270 MPV 7.8 Sodium 143 Potassium 3.3 L Chloride 107 Carbon Dioxide 31 D Anion Gap 5 L BUN 17 D Creatinine 1.0 Creat Clearance w eGFR 53.76 Random Glucose 102 Calcium 8.3 L Total Bilirubin 0.7 D AST 12 L D ALT 16 D Alkaline Phosphatase 45 D C-Reactive Protein 3.2 H Total Protein 5.3 L D Albumin 2.9 L Problem List - Problems (1) Abnormal computed tomography of gastrointestinal tract Code(s): R93.3 - ABNORMAL FINDINGS ON DX IMAGING OF PRT DIGESTIVE TRACT (2) Thickened endometrium Code(s): R93.8 - ABNORMAL FINDINGS ON DIAGNOSTIC IMAGING OF BODY STRUCTURES Assessment/Plan CLASSIFIED ADVERTISING MANAGER evaluation Continue ABx, antiemetics PO/IV hydration BRAT diet Colonoscopy in 4 weeks if good response to Abx, otherwise will plan to do it on this admission Discussed with the patient
[2017-04-27] MEDS: HEPARIN NA (PORCINE) 5,000 UNITS/ML 1ML VIAL SQ SCH ×2 (09:20→21:16)
[2017-04-27] MEDS: POLYETHYLENE GLYCOL 3350 119 GM BTL PO SCH ×2 (09:20→21:15)
[2017-04-27] MEDS: LEVOFLOXACIN 500 MG IVPB 500 MG/100 ML BAG IVPB SCH (09:20)
--- NOTE | 2017-04-27 09:29 | PN ---
Progress Note, Physician Chief Complaint: abdominal pain History of Present Illness: 76 yo PMH obesity and chronic constipation presents with acute onset abdominal pain. She suffers constipation, appears to have a segment of diverticulitis. He abdominal pain is much improved. Reported a BM and flatus, has been afebrile , is on clears but also had a banana without complaints. - Current Medication List Current Medications: Active Medications Heparin Sodium (Porcine) (Heparin -) 5,000 unit SQ BID [facility] Last Admin: 04/27/17 09:20 Dose: 5,000 unit Metronidazole (Flagyl 500mg Premixed Ivpb -) 500 mg in 100 mls @ 100 mls/hr IVPB Q6H-IV [facility] Last Admin: 04/27/17 09:20 Dose: 100 mls/hr Lactated Ringer's (Lactated Ringers Solution) 1,000 mls @ 75 mls/hr IV ASDIR [facility] Last Admin: 04/26/17 22:17 Dose: 75 mls/hr Levofloxacin (Levaquin 500 Mg Premixed Ivpb -) 500 mg in 100 mls @ 100 mls/hr IVPB DAILY [facility] Stop: 04/27/17 12:29 Last Admin: 04/27/17 09:20 Dose: 100 mls/hr Morphine Sulfate (Morphine Sulfate) 2 mg IVPUSH Q6H PRN PRN Reason: PAIN Last Admin: 04/26/17 21:34 Dose: 2 mg Ondansetron HCl (Zofran -) 8 mg PO Q8H PRN PRN Reason: NAUSEA Last Admin: 04/25/17 18:12 Dose: 8 mg Polyethylene Glycol (Miralax (For Daily Use) -) 17 gm PO BID [facility] Last Admin: 04/27/17 09:20 Dose: 17 gm Promethazine HCl (Phenergan Injection -) 12.5 mg IM Q6H PRN PRN Reason: NAUSEA AND/OR VOMITING Last Admin: 04/26/17 21:34 Dose: 12.5 mg - Objective Vital Signs: Vital Signs Temperature 97.8 F 04/27/17 05:30 Pulse Rate 85 04/27/17 05:30 Respiratory Rate 18 04/27/17 05:30 Blood Pressure 111/72 04/27/17 05:30 O2 Sat by Pulse Oximetry (%) 98 04/26/17 20:25 Vital Signs Period Temp Pulse Resp BP Sys/Flores Pulse Ox Last 24 Hr 97.8 F-98.5 F 85-97 18-20 106-131/62-77 98 Constitutional: Yes: Well Nourished, No Distress, Calm, Obese Eyes: Yes: Conjunctiva Clear, EOM Intact HENT: Yes: Atraumatic, Normocephalic Neck: Yes: Supple, Trachea Midline Cardiovascular: Yes: Regular Rate and Rhythm, S1, S2 Respiratory: Yes: Regular, CTA Bilaterally Gastrointestinal: Yes: Normal Bowel Sounds, Soft, Tenderness. No: Tenderness, Epigastrium, Tenderness, Rebound (moderate tenderness in right upper quadrant primarily.) Genitourinary: No: CVA Tenderness - Left, CVA Tenderness - Right Extremities: No: Cool, Cyanosis Neurological: Yes: Alert, Oriented Psychiatric: Yes: Alert, Oriented Labs: CBC, BMP 04/27/17 05:35 04/27/17 05:35 Problem List - Problems (1) Diverticulitis Assessment/Plan: 76yo female obesity and constipation presents with first episode of acute divertculitis, no previous colonoscopy clear liquids until pain free continue IV antibiotics (Levaquin and Flagyl) Serial abdominal exams Tumor markers now pending GI follow-up for colonoscopy 6 week after this episode Code(s): K57.92 - DVTRCLI OF INTEST, PART UNSP, W/O PERF OR ABSCESS W/O BLEED (2) Constipation Assessment/Plan: increase dietary fiber, improved hydration, incorporate a stool softner Code(s): K59.00 - CONSTIPATION, UNSPECIFIED (3) Thickened endometrium Code(s): R93.8 - ABNORMAL FINDINGS ON DIAGNOSTIC IMAGING OF BODY STRUCTURES (4) Obesity (BMI 30-39.9) Code(s): E66.9 - OBESITY, UNSPECIFIED
--- NOTE | 2017-04-27 10:22 | PN ---
Progress Note, Physician Chief Complaint: Abdominal pain, Diverticulitis History of Present Illness: NAD, in bed, seen by Surgery, no intervention at this time -low fiber diet as per GI -IV abx -nausea/vomiting overnight -abnormal pelvic U/S -Cancer antigen pending -coloposcopy and colonoscopy outpatient? - Current Medication List Current Medications: Active Medications Heparin Sodium (Porcine) (Heparin -) 5,000 unit SQ BID [facility] Last Admin: 04/27/17 09:20 Dose: 5,000 unit Metronidazole (Flagyl 500mg Premixed Ivpb -) 500 mg in 100 mls @ 100 mls/hr IVPB Q6H-IV [facility] Last Admin: 04/27/17 09:20 Dose: 100 mls/hr Lactated Ringer's (Lactated Ringers Solution) 1,000 mls @ 75 mls/hr IV ASDIR [facility] Last Admin: 04/26/17 22:17 Dose: 75 mls/hr Levofloxacin (Levaquin 500 Mg Premixed Ivpb -) 500 mg in 100 mls @ 100 mls/hr IVPB DAILY [facility] Stop: 04/27/17 12:29 Last Admin: 04/27/17 09:20 Dose: 100 mls/hr Potassium Chloride (Potassium Chloride 10 Meq Premix Ivpb -) 10 meq in 100 mls @ 100 mls/hr IVPB Q60M [facility] Stop: 04/27/17 13:29 Morphine Sulfate (Morphine Sulfate) 2 mg IVPUSH Q6H PRN PRN Reason: PAIN Last Admin: 04/26/17 21:34 Dose: 2 mg Ondansetron HCl (Zofran -) 8 mg PO Q8H PRN PRN Reason: NAUSEA Last Admin: 04/25/17 18:12 Dose: 8 mg Polyethylene Glycol (Miralax (For Daily Use) -) 17 gm PO BID [facility] Last Admin: 04/27/17 09:20 Dose: 17 gm Promethazine HCl (Phenergan Injection -) 12.5 mg IM Q6H PRN PRN Reason: NAUSEA AND/OR VOMITING Last Admin: 04/26/17 21:34 Dose: 12.5 mg - Objective Vital Signs: Vital Signs Temperature 97.8 F 04/27/17 05:30 Pulse Rate 85 04/27/17 05:30 Respiratory Rate 18 04/27/17 05:30 Blood Pressure 111/72 04/27/17 05:30 O2 Sat by Pulse Oximetry (%) 98 04/26/17 20:25 Constitutional: Yes: Well Nourished, No Distress, Calm Cardiovascular: Yes: Regular Rate and Rhythm Respiratory: Yes: Regular Neurological: Yes: Alert, Oriented Psychiatric: Yes: Alert, Oriented Labs: CBC, BMP 04/27/17 05:35 04/27/17 05:35 Problem List - Problems (1) Abnormal computed tomography of gastrointestinal tract Assessment/Plan: ascending colon inflammation -on IV abx -IVF -pain improved -seen by GI and surgery Code(s): R93.3 - ABNORMAL FINDINGS ON DX IMAGING OF PRT DIGESTIVE TRACT (2) Diverticulitis Assessment/Plan: -seen by GI and Surgery -IVF -IV abx -pain improving -appetite decreased -added pantoprazole Code(s): K57.92 - DVTRCLI OF INTEST, PART UNSP, W/O PERF OR ABSCESS W/O BLEED (3) Thickened endometrium Assessment/Plan: -CLINICAL INFORMATICS PHYSICIAN eval ouotpatient? -Cancer antigen pending -Coloposcopy if CA 125 abnormal -upon questioning, she states she has never seen CLINICAL INFORMATICS PHYSICIAN or had PAP smear done. Code(s): R93.8 - ABNORMAL FINDINGS ON DIAGNOSTIC IMAGING OF BODY STRUCTURES Assessment/Plan see problem list DVT prophylaxis
[2017-04-27] MEDS ORDERED: KCL 10 MEQ IVPB 10 MEQ/100 ML INFUS.BAG IVPB SCH (10:30)
[2017-04-27] MEDS ORDERED: POTASSIUM CHLORIDE 30 MEQ in SODIUM CHLORIDE 300 ML IVPB ONE (10:30)
[2017-04-27] MEDS ORDERED: PROMETHAZINE HCL 25 MG/1 ML VIAL IVPB PRN (11:15)
[2017-04-27] MEDS ORDERED: PANTOPRAZOLE SODIUM 40 MG in SODIUM CHLORIDE 100 ML IVPB SCH (11:30)
[2017-04-27 11:41] LABS: ERYTHROCYTE SEDIMENTATION RATE 3 mm/hr (0-30)
[2017-04-27] MEDS: PANTOPRAZOLE SODIUM 40 MG VIAL IVPB SCH (12:22)
[2017-04-27] MEDS: LACTATED RINGERS SOLUTION 1,000 ML IV SCH ×2 (17:04→21:16)
[2017-04-28] MEDS: METRONIDAZOLE 500 MG PREMIXED 500 MG/100 ML MG IVPB SCH ×4 (04:00→21:44)
--- NOTE | 2017-04-28 07:51 | PN ---
Progress Note, Physician History of Present Illness: C/O ABD PAIN - Current Medication List Current Medications: Active Medications Heparin Sodium (Porcine) (Heparin -) 5,000 unit SQ BID [facility] Last Admin: 04/27/17 21:16 Dose: 5,000 unit Metronidazole (Flagyl 500mg Premixed Ivpb -) 500 mg in 100 mls @ 100 mls/hr IVPB Q6H-IV [facility] Last Admin: 04/28/17 04:00 Dose: 100 mls/hr Lactated Ringer's (Lactated Ringers Solution) 1,000 mls @ 75 mls/hr IV ASDIR [facility] Last Admin: 04/27/17 21:16 Dose: Not Given Morphine Sulfate (Morphine Sulfate) 2 mg IVPUSH Q6H PRN PRN Reason: PAIN Last Admin: 04/26/17 21:34 Dose: 2 mg Ondansetron HCl (Zofran -) 8 mg PO Q8H PRN PRN Reason: NAUSEA Last Admin: 04/25/17 18:12 Dose: 8 mg Pantoprazole Sodium (Protonix Iv) 40 mg IVPB DAILY [facility] Last Admin: 04/27/17 12:22 Dose: 40 mg Polyethylene Glycol (Miralax (For Daily Use) -) 17 gm PO BID [facility] Last Admin: 04/27/17 21:15 Dose: Not Given Promethazine HCl (Phenergan Injection -) 12.5 mg IVPB Q6H PRN PRN Reason: NAUSEA AND/OR VOMITING - Objective Vital Signs: Vital Signs Temperature 97.9 F 04/28/17 05:46 Pulse Rate 82 04/28/17 05:46 Respiratory Rate 20 04/28/17 05:46 Blood Pressure 133/79 04/28/17 05:46 O2 Sat by Pulse Oximetry (%) 94 L 04/27/17 21:00 Cardiovascular: Yes: Regular Rate and Rhythm Respiratory: Yes: Regular, CTA Bilaterally Gastrointestinal: Yes: Normal Bowel Sounds, Soft, Tenderness Labs: CBC, BMP 04/27/17 05:35 04/27/17 05:35 Assessment/Plan - Problems (1) Abnormal computed tomography of gastrointestinal tract Assessment/Plan: ascending colon inflammation -on IV abx -IVF -pain improved -seen by GI and surgery Code(s): R93.3 - ABNORMAL FINDINGS ON DX IMAGING OF PRT DIGESTIVE TRACT (2) Diverticulitis Assessment/Plan: -seen by GI and Surgery -IVF -IV abx -pain improving -appetite decreased -added pantoprazole Code(s): K57.92 - DVTRCLI OF INTEST, PART UNSP, W/O PERF OR ABSCESS W/O BLEED (3) Thickened endometrium Assessment/Plan: -HIGH SCHOOL ACADEMIC COACH eval -Cancer antigen pending -CA 125 abnormal -upon questioning, she states she has never seen HIGH SCHOOL ACADEMIC COACH or had PAP smear done. Code(s): R93.8 - ABNORMAL FINDINGS ON DIAGNOSTIC IMAGING OF BODY STRUCTURES
[2017-04-28 09:02] LABS: BASOPHIL 0.8 % (0-2.0); EOSINOPHIL 4.1 % (0-4.5); MCH 29.1 pg (25.7-33.7); MCHC 33.2 g/dl (32.0-36.0); MEAN CELL VOLUME 87.6 fl (80-96); MEAN PLT VOLUME 7.3 fl (7.5-11.1); NEUTROPHILS 55.6 % (42.8-82.8); PLATELET COUNT 297 K/MM3 (134-434); RDW 13.5 % (11.6-15.6); WHITE BLOOD COUNT 5.7 K/mm3 (4.0-10.0)
--- NOTE | 2017-04-28 09:11 | PN ---
Progress Note, Physician Chief Complaint: abdominal pain History of Present Illness: 76 yo PMH obesity and chronic constipation presents with acute onset abdominal pain. She suffers constipation, appears to have a segment of diverticulitis. He right upper and lower quadrant abdominal pain is improved. Reported a BM and flatus, has been afebrile, no new complaints - Current Medication List Current Medications: Active Medications Heparin Sodium (Porcine) (Heparin -) 5,000 unit SQ BID [facility] Last Admin: 04/27/17 21:16 Dose: 5,000 unit Metronidazole (Flagyl 500mg Premixed Ivpb -) 500 mg in 100 mls @ 100 mls/hr IVPB Q6H-IV [facility] Last Admin: 04/28/17 04:00 Dose: 100 mls/hr Lactated Ringer's (Lactated Ringers Solution) 1,000 mls @ 75 mls/hr IV ASDIR [facility] Last Admin: 04/27/17 21:16 Dose: Not Given Morphine Sulfate (Morphine Sulfate) 2 mg IVPUSH Q6H PRN PRN Reason: PAIN Last Admin: 04/26/17 21:34 Dose: 2 mg Ondansetron HCl (Zofran -) 8 mg PO Q8H PRN PRN Reason: NAUSEA Last Admin: 04/25/17 18:12 Dose: 8 mg Pantoprazole Sodium (Protonix Iv) 40 mg IVPB DAILY [facility] Last Admin: 04/27/17 12:22 Dose: 40 mg Polyethylene Glycol (Miralax (For Daily Use) -) 17 gm PO BID [facility] Last Admin: 04/27/17 21:15 Dose: Not Given Promethazine HCl (Phenergan Injection -) 12.5 mg IVPB Q6H PRN PRN Reason: NAUSEA AND/OR VOMITING - Objective Vital Signs: Vital Signs Temperature 97.9 F 04/28/17 05:46 Pulse Rate 82 04/28/17 05:46 Respiratory Rate 20 04/28/17 05:46 Blood Pressure 133/79 04/28/17 05:46 O2 Sat by Pulse Oximetry (%) 94 L 04/27/17 21:00 Vital Signs Period Temp Pulse Resp BP Sys/Flores Pulse Ox Last 24 Hr 97.4 F-98.6 F 82-100 16-20 108-133/63-79 94 Constitutional: Yes: No Distress, Calm, Obese Eyes: Yes: Conjunctiva Clear, EOM Intact HENT: Yes: Atraumatic, Normocephalic Neck: Yes: Supple, Trachea Midline Cardiovascular: Yes: Regular Rate and Rhythm, S1, S2 Respiratory: Yes: Regular, CTA Bilaterally Gastrointestinal: Yes: Normal Bowel Sounds, Soft, Hernia (supraumbilical hernia) , Tenderness (RUQ and RLQ mild tenderness on palpation). No: Palpable Mass, Tenderness, Epigastrium, Tenderness, Rebound, Vomiting ...Rectal Exam: Yes: Deferred Genitourinary: No: CVA Tenderness - Left, CVA Tenderness - Right Breast(s): Yes: WNL, Left, Right. No: Mass Extremities: No: Calf Tenderness, Cool, Cyanosis Edema: No Peripheral Pulses WNL: Yes Peripheral Pulses: Left Radial: 2+, Right Radial: 2+, Left Doralis Pedis: 2+, Right Dorsalis Pedis: 2+ Integumentary: No: Jaundice, Rash Neurological: Yes: Alert, Oriented Psychiatric: Yes: Alert, Oriented Labs: Abnormal Lab Results 04/27/17 05:35 CA 125 Antigen 53.2 H CBC,CMP WBC 5.7 K/mm3 (4.0-10.0) 04/28/17 08:55 RBC 4.58 M/mm3 (3.60-5.2) 04/28/17 08:55 Hgb 13.3 GM/dL (10.7-15.3) 04/28/17 08:55 Hct 40.1 % (32.4-45.2) 04/28/17 08:55 MCV 87.6 fl (80-96) 04/28/17 08:55 MCH 29.1 pg (25.7-33.7) 04/28/17 08:55 MCHC 33.2 g/dl (32.0-36.0) 04/28/17 08:55 RDW 13.5 % (11.6-15.6) 04/28/17 08:55 Plt Count 297 K/MM3 (134-434) 04/28/17 08:55 MPV 7.3 fl (7.5-11.1) L 04/28/17 08:55 Neutrophils % 55.6 % (42.8-82.8) 04/28/17 08:55 Lymphocytes % 30.6 % (8-40) D 04/28/17 08:55 Monocytes % 8.9 % (3.8-10.2) 04/28/17 08:55 Eosinophils % 4.1 % (0-4.5) D 04/28/17 08:55 Basophils % 0.8 % (0-2.0) 04/28/17 08:55 Platelet Comment 04/23/17 19:28 ESR 3 mm/hr (0-30) 04/27/17 05:35 Sodium 143 mmol/L (136-145) 04/27/17 05:35 Potassium 3.3 mmol/L (3.5-5.1) L 04/27/17 05:35 Chloride 107 mmol/L (98-107) 04/27/17 05:35 Carbon Dioxide 31 mmol/L (21-32) D 04/27/17 05:35 Anion Gap 5 (8-16) L 04/27/17 05:35 BUN 17 mg/dL (7-18) D 04/27/17 05:35 Creatinine 1.0 mg/dL (0.55-1.02) 04/27/17 05:35 Creat Clearance w eGFR 53.76 (>60) 04/27/17 05:35 Random Glucose 102 mg/dL (74-106) 04/27/17 05:35 Hemoglobin A1c % 6.0 % (4.8-6.0) 04/24/17 06:45 Lactic Acid 1.2 mmol/L (0.4-2.0) 04/23/17 19:28 Calcium 8.3 mg/dL (8.5-10.1) L 04/27/17 05:35 Magnesium 1.9 mg/dL (1.8-2.4) 04/24/17 06:30 Total Bilirubin 0.7 mg/dL (0.2-1.0) D 04/27/17 05:35 AST 12 U/L (15-37) L D 04/27/17 05:35 ALT 16 U/L (12-78) D 04/27/17 05:35 Alkaline Phosphatase 45 U/L (45-117) D 04/27/17 05:35 Creatine Kinase 86 IU/L (26-192) 04/23/17 12:00 Troponin I < 0.02 ng/ml (0.00-0.05) 04/23/17 12:00 C-Reactive Protein 3.2 MG/DL (0.00-0.3) H 04/27/17 05:35 Total Protein 5.3 g/dl (6.4-8.2) L D 04/27/17 05:35 Albumin 2.9 g/dl (3.4-5.0) L 04/27/17 05:35 Lipase 148 U/L (73-393) 04/23/17 12:00 Carcinoembryonic Ag 0.6 ng/mL (0.0-4.7) 04/27/17 05:35 CA 125 Antigen 53.2 U/mL (0.0-38.1) H 04/27/17 05:35 Problem List - Problems (1) Diverticulitis Assessment/Plan: 76yo female obesity and constipation presents with first episode of acute divertculitis, no previous colonoscopy, must consider malignancy CA-125 elevated Diet as tolerated continue IV antibiotics (Levaquin and Flagyl) Serial abdominal exams Tobacco Stripper Consult Medical oncology consult GI follow-up for colonoscopy 6 week after this episode Code(s): K57.92 - DVTRCLI OF INTEST, PART UNSP, W/O PERF OR ABSCESS W/O BLEED (2) Constipation Assessment/Plan: increase dietary fiber, improved hydration, incorporate a stool softner Code(s): K59.00 - CONSTIPATION, UNSPECIFIED (3) Thickened endometrium Code(s): R93.8 - ABNORMAL FINDINGS ON DIAGNOSTIC IMAGING OF BODY STRUCTURES (4) Obesity (BMI 30-39.9) Code(s): E66.9 - OBESITY, UNSPECIFIED
[2017-04-28] MEDS: HEPARIN NA (PORCINE) 5,000 UNITS/ML 1ML VIAL SQ SCH ×2 (09:25→21:44)
[2017-04-28] MEDS: POLYETHYLENE GLYCOL 3350 119 GM BTL PO SCH ×2 (09:26→21:44)
[2017-04-28] MEDS: PANTOPRAZOLE SODIUM 40 MG VIAL IVPB SCH (09:27)
[2017-04-28 10:07] LABS: ALBUMIN 3.3 g/dl (3.4-5.0); ANION GAP 7 (8-16); CALCIUM 8.3 mg/dL (8.5-10.1); CO2 28 mmol/L (21-32); CREATININE 0.8 mg/dL (0.55-1.02); GLUCOSE,RANDOM 105 mg/dL (74-106); SGOT/AST 16 U/L (15-37); SGPT/ALT 17 U/L (12-78)
[2017-04-28 10:09] LABS: ALK PHOS 52 U/L (45-117); BILIRUBIN,TOTAL 0.7 mg/dL (0.2-1.0)
--- NOTE | 2017-04-28 13:23 | PN ---
Progress Note, Physician History of Present Illness: Chart reviewed. Pain improved. Abnormal endometrium on pelvic US - Current Medication List Current Medications: Active Medications Heparin Sodium (Porcine) (Heparin -) 5,000 unit SQ BID [facility] Last Admin: 04/28/17 09:25 Dose: 5,000 unit Metronidazole (Flagyl 500mg Premixed Ivpb -) 500 mg in 100 mls @ 100 mls/hr IVPB Q6H-IV [facility] Last Admin: 04/28/17 09:25 Dose: 100 mls/hr Lactated Ringer's (Lactated Ringers Solution) 1,000 mls @ 75 mls/hr IV ASDIR [facility] Last Admin: 04/27/17 21:16 Dose: Not Given Morphine Sulfate (Morphine Sulfate) 2 mg IVPUSH Q6H PRN PRN Reason: PAIN Last Admin: 04/26/17 21:34 Dose: 2 mg Ondansetron HCl (Zofran -) 8 mg PO Q8H PRN PRN Reason: NAUSEA Last Admin: 04/25/17 18:12 Dose: 8 mg Pantoprazole Sodium (Protonix Iv) 40 mg IVPB DAILY [facility] Last Admin: 04/28/17 09:27 Dose: 40 mg Polyethylene Glycol (Miralax (For Daily Use) -) 17 gm PO BID [facility] Last Admin: 04/28/17 09:26 Dose: 17 gm Promethazine HCl (Phenergan Injection -) 12.5 mg IVPB Q6H PRN PRN Reason: NAUSEA AND/OR VOMITING - Objective Vital Signs: Vital Signs Temperature 98.2 F 04/28/17 10:00 Pulse Rate 86 04/28/17 10:00 Respiratory Rate 18 04/28/17 10:00 Blood Pressure 103/61 04/28/17 10:00 O2 Sat by Pulse Oximetry (%) 94 L 04/27/17 21:00 Constitutional: Yes: No Distress, Calm Eyes: Yes: Conjunctiva Clear HENT: Yes: Atraumatic Neck: Yes: Supple Cardiovascular: Yes: Regular Rate and Rhythm Respiratory: Yes: Regular Gastrointestinal: Yes: Normal Bowel Sounds, Tenderness. No: Melena, Rectal Bleeding, Tenderness, Rebound, Vomiting Neurological: Yes: Alert, Oriented Labs: CBC, BMP 04/28/17 08:55 04/28/17 08:55 Abnormal Lab Results 04/27/17 04/28/17 04/28/17 05:35 08:55 08:55 MPV 7.3 L Anion Gap 7 L Calcium 8.3 L Total Protein 6.0 L Albumin 3.3 L CA 125 Antigen 53.2 H Problem List - Problems (1) Abnormal computed tomography of gastrointestinal tract Code(s): R93.3 - ABNORMAL FINDINGS ON DX IMAGING OF PRT DIGESTIVE TRACT (2) Thickened endometrium Code(s): R93.8 - ABNORMAL FINDINGS ON DIAGNOSTIC IMAGING OF BODY STRUCTURES Assessment/Plan SALES AND SERVICE REPRESENTATIVE evaluation Continue ABx, antiemetics PO/IV hydration Advance diet as tolerated Colonoscopy in 4 weeks
[2017-04-28] MEDS: LACTATED RINGERS SOLUTION 1,000 ML IV SCH ×2 (14:51→23:56)
[2017-04-29] MEDS: METRONIDAZOLE 500 MG PREMIXED 500 MG/100 ML MG IVPB SCH ×4 (02:08→21:35)
--- NOTE | 2017-04-29 08:12 | PN ---
Progress Note, Physician Chief Complaint: abdominal pain History of Present Illness: 76 yo PMH obesity and chronic constipation presents with acute onset abdominal pain. No previous colonoscopy no previous pelvic exam or pap smear. She suffers constipation, appears to have a segment of diverticulitis. He right upper and lower quadrant abdominal pain is improved. Reported a BM and flatus, has been afebrile, no new complaints - Current Medication List Current Medications: Active Medications Heparin Sodium (Porcine) (Heparin -) 5,000 unit SQ BID [facility] Last Admin: 04/28/17 21:44 Dose: 5,000 unit Metronidazole (Flagyl 500mg Premixed Ivpb -) 500 mg in 100 mls @ 100 mls/hr IVPB Q6H-IV [facility] Last Admin: 04/29/17 02:08 Dose: 100 mls/hr Lactated Ringer's (Lactated Ringers Solution) 1,000 mls @ 75 mls/hr IV ASDIR [facility] Last Admin: 04/28/17 23:56 Dose: 75 mls/hr Morphine Sulfate (Morphine Sulfate) 2 mg IVPUSH Q6H PRN PRN Reason: PAIN Last Admin: 04/26/17 21:34 Dose: 2 mg Ondansetron HCl (Zofran -) 8 mg PO Q8H PRN PRN Reason: NAUSEA Last Admin: 04/25/17 18:12 Dose: 8 mg Pantoprazole Sodium (Protonix Iv) 40 mg IVPB DAILY [facility] Last Admin: 04/28/17 09:27 Dose: 40 mg Polyethylene Glycol (Miralax (For Daily Use) -) 17 gm PO BID [facility] Last Admin: 04/28/17 21:44 Dose: 17 gm Promethazine HCl (Phenergan Injection -) 12.5 mg IVPB Q6H PRN PRN Reason: NAUSEA AND/OR VOMITING - Objective Vital Signs: Vital Signs Temperature 98 F 04/29/17 06:00 Pulse Rate 81 04/29/17 06:00 Respiratory Rate 20 04/29/17 06:00 Blood Pressure 148/80 04/29/17 06:00 O2 Sat by Pulse Oximetry (%) 96 04/28/17 21:00 Vital Signs Period Temp Pulse Resp BP Sys/Flores Pulse Ox Last 24 Hr 98 F-98.7 F 77-90 18-20 103-148/61-80 94-96 Constitutional: Yes: No Distress, Calm, Obese Eyes: Yes: Conjunctiva Clear, EOM Intact HENT: Yes: Atraumatic, Normocephalic Neck: Yes: Supple, Trachea Midline Cardiovascular: Yes: Regular Rate and Rhythm, S1, S2 Respiratory: Yes: Regular, CTA Bilaterally Gastrointestinal: Yes: Normal Bowel Sounds, Soft, Abdomen, Obese, Hernia ( supraumbilical), Tenderness (moderate RUQ). No: Distention, Tenderness, Epigastrium, Tenderness, Rebound Genitourinary: No: CVA Tenderness - Left, CVA Tenderness - Right Edema: No Peripheral Pulses WNL: Yes Peripheral Pulses: Left Radial: 2+, Right Radial: 2+, Left Doralis Pedis: 2+, Right Dorsalis Pedis: 2+, Left Femoral: 2+, Right Femoral: 2+ Neurological: Yes: Alert, Oriented Psychiatric: Yes: Alert, Oriented Labs: CBC, BMP 04/28/17 08:55 04/28/17 08:55 Abnormal Lab Results 04/28/17 04/28/17 08:55 08:55 MPV 7.3 L Anion Gap 7 L Calcium 8.3 L Total Protein 6.0 L Albumin 3.3 L Problem List - Problems (1) Diverticulitis Assessment/Plan: 76yo female obesity and constipation presents with first episode of acute divertculitis, no previous colonoscopy, must consider malignancy CA-125 elevated Diet as tolerated continue IV antibiotics (Levaquin and Flagyl) Serial abdominal exams Personal Lines Insurance Agent evaluation pending Medical oncology consult GI follow-up for colonoscopy 6 week after this episode Code(s): K57.92 - DVTRCLI OF INTEST, PART UNSP, W/O PERF OR ABSCESS W/O BLEED (2) Constipation Assessment/Plan: increase dietary fiber, improved hydration, incorporate a stool softner Code(s): K59.00 - CONSTIPATION, UNSPECIFIED (3) Thickened endometrium Assessment/Plan: will f/u ELECTRONICS COMMODITY MANAGER evaluation Code(s): R93.8 - ABNORMAL FINDINGS ON DIAGNOSTIC IMAGING OF BODY STRUCTURES (4) Obesity (BMI 30-39.9) Code(s): E66.9 - OBESITY, UNSPECIFIED
[2017-04-29] MEDS: PANTOPRAZOLE SODIUM 40 MG VIAL IVPB SCH (09:36)
[2017-04-29] MEDS: POLYETHYLENE GLYCOL 3350 119 GM BTL PO SCH ×2 (09:37→21:35)
[2017-04-29] MEDS: HEPARIN NA (PORCINE) 5,000 UNITS/ML 1ML VIAL SQ SCH ×2 (09:37→21:35)
--- NOTE | 2017-04-29 14:02 | PN ---
Progress Note, Physician Chief Complaint: Abdominal pain, Diverticulitis History of Present Illness: NAD, in bed, seen by Surgery, no intervention at this time -low fiber diet as per GI -IV abx -nausea/vomiting resolved -abnormal pelvic U/S -Ca 125 elevated, with abnormal endometrium, high suspicion of malignancy, would need coloposcopy -coloposcopy and colonoscopy outpatient? - Current Medication List Current Medications: Active Medications Heparin Sodium (Porcine) (Heparin -) 5,000 unit SQ BID [facility] Last Admin: 04/29/17 09:37 Dose: 5,000 unit Metronidazole (Flagyl 500mg Premixed Ivpb -) 500 mg in 100 mls @ 100 mls/hr IVPB Q6H-IV [facility] Last Admin: 04/29/17 09:36 Dose: 100 mls/hr Lactated Ringer's (Lactated Ringers Solution) 1,000 mls @ 75 mls/hr IV ASDIR [facility] Last Admin: 04/28/17 23:56 Dose: 75 mls/hr Morphine Sulfate (Morphine Sulfate) 2 mg IVPUSH Q6H PRN PRN Reason: PAIN Last Admin: 04/26/17 21:34 Dose: 2 mg Ondansetron HCl (Zofran -) 8 mg PO Q8H PRN PRN Reason: NAUSEA Last Admin: 04/25/17 18:12 Dose: 8 mg Pantoprazole Sodium (Protonix Iv) 40 mg IVPB DAILY [facility] Last Admin: 04/29/17 09:36 Dose: 40 mg Polyethylene Glycol (Miralax (For Daily Use) -) 17 gm PO BID [facility] Last Admin: 04/29/17 09:37 Dose: 17 gm Promethazine HCl (Phenergan Injection -) 12.5 mg IVPB Q6H PRN PRN Reason: NAUSEA AND/OR VOMITING - Objective Vital Signs: Vital Signs Temperature 98 F 04/29/17 06:00 Pulse Rate 81 04/29/17 06:00 Respiratory Rate 20 04/29/17 06:00 Blood Pressure 148/80 04/29/17 06:00 O2 Sat by Pulse Oximetry (%) 96 04/28/17 21:00 Constitutional: Yes: Well Nourished, No Distress, Calm Cardiovascular: Yes: Regular Rate and Rhythm Respiratory: Yes: Regular Gastrointestinal: Yes: Normal Bowel Sounds, Tenderness (BLLQ) Musculoskeletal: Yes: WNL Extremities: Yes: WNL Edema: No Peripheral Pulses WNL: Yes Neurological: Yes: Alert Psychiatric: Yes: Alert Labs: CBC, BMP 04/28/17 08:55 04/28/17 08:55 Problem List - Problems (1) Abnormal computed tomography of gastrointestinal tract Assessment/Plan: ascending colon inflammation -on IV abx -IVF -pain improved -seen by GI and surgery Code(s): R93.3 - ABNORMAL FINDINGS ON DX IMAGING OF PRT DIGESTIVE TRACT (2) Diverticulitis Assessment/Plan: -seen by GI and Surgery -IVF -IV abx -pain improving -appetite decreased -added pantoprazole Code(s): K57.92 - DVTRCLI OF INTEST, PART UNSP, W/O PERF OR ABSCESS W/O BLEED (3) Thickened endometrium Assessment/Plan: -ARCHIVIST MILITARY HISTORY eval outpatient? -U/S abd shows thickening of the endometrium -Coloposcopy indicated with abnormal CA 125 -upon questioning, she states she has never seen ARCHIVIST MILITARY HISTORY or had PAP smear done. Code(s): R93.8 - ABNORMAL FINDINGS ON DIAGNOSTIC IMAGING OF BODY STRUCTURES Assessment/Plan see problem list DVT prophylaxis
[2017-04-29] MEDS: LACTATED RINGERS SOLUTION 1,000 ML IV SCH (15:55)
[2017-04-29] MEDS ORDERED: PT OWN MED DRAWER 7, Y5N ONE (17:55)
[2017-04-30] MEDS: LACTATED RINGERS SOLUTION 1,000 ML IV SCH ×2 (03:35→09:51)
[2017-04-30] MEDS: METRONIDAZOLE 500 MG PREMIXED 500 MG/100 ML MG IVPB SCH ×4 (03:35→21:07)
--- NOTE | 2017-04-30 07:14 | PN ---
Progress Note, Physician Chief Complaint: abdominal pain History of Present Illness: 76 yo PMH obesity and chronic constipation presents with acute onset abdominal pain. No previous colonoscopy no previous pelvic exam or pap smear. She suffers constipation, appears to have a segment of diverticulitis. He right upper and lower quadrant abdominal pain is improved. Reported a BM and flatus, has been afebrile, no new complaints - Current Medication List Current Medications: Active Medications Heparin Sodium (Porcine) (Heparin -) 5,000 unit SQ BID [facility] Last Admin: 04/29/17 21:35 Dose: 5,000 unit Metronidazole (Flagyl 500mg Premixed Ivpb -) 500 mg in 100 mls @ 100 mls/hr IVPB Q6H-IV [facility] Last Admin: 04/30/17 03:35 Dose: 100 mls/hr Lactated Ringer's (Lactated Ringers Solution) 1,000 mls @ 75 mls/hr IV ASDIR [facility] Last Admin: 04/30/17 03:35 Dose: 75 mls/hr Morphine Sulfate (Morphine Sulfate) 2 mg IVPUSH Q6H PRN PRN Reason: PAIN Last Admin: 04/26/17 21:34 Dose: 2 mg Ondansetron HCl (Zofran -) 8 mg PO Q8H PRN PRN Reason: NAUSEA Last Admin: 04/25/17 18:12 Dose: 8 mg Pantoprazole Sodium (Protonix Iv) 40 mg IVPB DAILY [facility] Last Admin: 04/29/17 09:36 Dose: 40 mg Polyethylene Glycol (Miralax (For Daily Use) -) 17 gm PO BID [facility] Last Admin: 04/29/17 21:35 Dose: Not Given Promethazine HCl (Phenergan Injection -) 12.5 mg IVPB Q6H PRN PRN Reason: NAUSEA AND/OR VOMITING - Objective Vital Signs: Vital Signs Temperature 98.3 F 04/30/17 06:00 Pulse Rate 83 04/30/17 06:00 Respiratory Rate 18 04/30/17 06:00 Blood Pressure 142/84 04/30/17 06:00 O2 Sat by Pulse Oximetry (%) 94 L 04/29/17 21:00 Vital Signs Period Temp Pulse Resp BP Sys/Flores Pulse Ox Last 24 Hr 97.9 F-98.7 F 83-94 18-20 128-142/77-89 94-96 Constitutional: Yes: No Distress, Calm Eyes: Yes: Conjunctiva Clear, EOM Intact HENT: Yes: Atraumatic, Normocephalic Neck: Yes: Supple, Trachea Midline Cardiovascular: Yes: Regular Rate and Rhythm, S1, S2 Gastrointestinal: Yes: Normal Bowel Sounds, Soft, Tenderness (right upper quadrant mild) ...Rectal Exam: Yes: Deferred Edema: No Peripheral Pulses WNL: Yes Neurological: Yes: Alert, Oriented Psychiatric: Yes: Alert, Oriented Problem List - Problems (1) Diverticulitis Assessment/Plan: 76yo female obesity and constipation presents with first episode of acute divertculitis, no previous colonoscopy, must consider malignancy CA-125 elevated Diet as tolerated continue IV antibiotics (Levaquin and Flagyl) Serial abdominal exams Board Winder evaluation may be done as an out-patient GI follow-up for colonoscopy 6 week after this episode Code(s): K57.92 - DVTRCLI OF INTEST, PART UNSP, W/O PERF OR ABSCESS W/O BLEED (2) Thickened endometrium Code(s): R93.8 - ABNORMAL FINDINGS ON DIAGNOSTIC IMAGING OF BODY STRUCTURES (3) Constipation Code(s): K59.00 - CONSTIPATION, UNSPECIFIED (4) Obesity (BMI 30-39.9) Code(s): E66.9 - OBESITY, UNSPECIFIED
[2017-04-30] MEDS: POLYETHYLENE GLYCOL 3350 119 GM BTL PO SCH ×2 (09:31→21:08)
[2017-04-30] MEDS: HEPARIN NA (PORCINE) 5,000 UNITS/ML 1ML VIAL SQ SCH ×2 (09:31→21:07)
[2017-04-30] MEDS: PANTOPRAZOLE SODIUM 40 MG VIAL IVPB SCH (09:52)
--- NOTE | 2017-04-30 12:02 | PN ---
Progress Note, Physician Chief Complaint: in bed awake alert complaining of mild abdominal pain on iv abx - Current Medication List Current Medications: Active Medications Heparin Sodium (Porcine) (Heparin -) 5,000 unit SQ BID [facility] Last Admin: 04/30/17 09:31 Dose: 5,000 unit Metronidazole (Flagyl 500mg Premixed Ivpb -) 500 mg in 100 mls @ 100 mls/hr IVPB Q6H-IV [facility] Last Admin: 04/30/17 09:52 Dose: 100 mls/hr Lactated Ringer's (Lactated Ringers Solution) 1,000 mls @ 75 mls/hr IV ASDIR [facility] Last Admin: 04/30/17 09:51 Dose: 75 mls/hr Morphine Sulfate (Morphine Sulfate) 2 mg IVPUSH Q6H PRN PRN Reason: PAIN Last Admin: 04/26/17 21:34 Dose: 2 mg Ondansetron HCl (Zofran -) 8 mg PO Q8H PRN PRN Reason: NAUSEA Last Admin: 04/25/17 18:12 Dose: 8 mg Pantoprazole Sodium (Protonix Iv) 40 mg IVPB DAILY [facility] Last Admin: 04/30/17 09:52 Dose: 40 mg Polyethylene Glycol (Miralax (For Daily Use) -) 17 gm PO BID [facility] Last Admin: 04/30/17 09:31 Dose: 17 gm Promethazine HCl (Phenergan Injection -) 12.5 mg IVPB Q6H PRN PRN Reason: NAUSEA AND/OR VOMITING - Objective Vital Signs: Vital Signs Temperature 98.1 F 04/30/17 09:00 Pulse Rate 82 04/30/17 09:00 Respiratory Rate 18 04/30/17 09:00 Blood Pressure 146/78 04/30/17 09:00 O2 Sat by Pulse Oximetry (%) 94 L 04/30/17 08:00 Constitutional: Yes: Calm Neck: Yes: Trachea Midline Cardiovascular: Yes: Regular Rate and Rhythm, S1, S2 Respiratory: Yes: CTA Bilaterally Gastrointestinal: Yes: Hypoactive Bowel Sounds, Tenderness, Epigastrium, Other ( left upper quadrant) Edema: No Neurological: Yes: Alert, Oriented Labs: CBC, BMP 04/28/17 08:55 04/28/17 08:55 Problem List - Problems (1) Diverticulitis Assessment/Plan: iv abx iv hydration antiemetics pain control dvt ppx Code(s): K57.92 - DVTRCLI OF INTEST, PART UNSP, W/O PERF OR ABSCESS W/O BLEED (2) Abnormal computed tomography of gastrointestinal tract Assessment/Plan: low fibre diet iv hydration iv abx Code(s): R93.3 - ABNORMAL FINDINGS ON DX IMAGING OF PRT DIGESTIVE TRACT (3) Fluid in endometrial cavity Assessment/Plan: pelvic sono noted for abnormal thickening of endometrium outpatient follow up for physician advisor Code(s): N85.9 - NONINFLAMMATORY DISORDER OF UTERUS, UNSPECIFIED
--- NOTE | 2017-04-30 13:34 | PN ---
Progress Note, Physician History of Present Illness: Chart reviewed. Pain improved. Ambulating, tolerating diet and reports daily bms. Abnormal endometrium on pelvic US - Current Medication List Current Medications: Active Medications Heparin Sodium (Porcine) (Heparin -) 5,000 unit SQ BID [facility] Last Admin: 04/30/17 09:31 Dose: 5,000 unit Metronidazole (Flagyl 500mg Premixed Ivpb -) 500 mg in 100 mls @ 100 mls/hr IVPB Q6H-IV [facility] Last Admin: 04/30/17 09:52 Dose: 100 mls/hr Lactated Ringer's (Lactated Ringers Solution) 1,000 mls @ 75 mls/hr IV ASDIR [facility] Last Admin: 04/30/17 09:51 Dose: 75 mls/hr Morphine Sulfate (Morphine Sulfate) 2 mg IVPUSH Q6H PRN PRN Reason: PAIN Last Admin: 04/26/17 21:34 Dose: 2 mg Ondansetron HCl (Zofran -) 8 mg PO Q8H PRN PRN Reason: NAUSEA Last Admin: 04/25/17 18:12 Dose: 8 mg Pantoprazole Sodium (Protonix Iv) 40 mg IVPB DAILY [facility] Last Admin: 04/30/17 09:52 Dose: 40 mg Polyethylene Glycol (Miralax (For Daily Use) -) 17 gm PO BID [facility] Last Admin: 04/30/17 09:31 Dose: 17 gm Promethazine HCl (Phenergan Injection -) 12.5 mg IVPB Q6H PRN PRN Reason: NAUSEA AND/OR VOMITING - Objective Vital Signs: Vital Signs Temperature 98.1 F 04/30/17 09:00 Pulse Rate 82 04/30/17 09:00 Respiratory Rate 18 04/30/17 09:00 Blood Pressure 146/78 04/30/17 09:00 O2 Sat by Pulse Oximetry (%) 94 L 04/30/17 08:00 Constitutional: Yes: Well Nourished, No Distress, Calm Eyes: Yes: Conjunctiva Clear HENT: Yes: Atraumatic Neck: Yes: Supple Cardiovascular: Yes: Regular Rate and Rhythm Respiratory: Yes: Regular Gastrointestinal: Yes: Normal Bowel Sounds, Soft. No: Melena, Rectal Bleeding, Tenderness, Vomiting Neurological: Yes: Alert, Oriented Labs: CBC, BMP 04/28/17 08:55 04/28/17 08:55 Problem List - Problems (1) Abnormal computed tomography of gastrointestinal tract Code(s): R93.3 - ABNORMAL FINDINGS ON DX IMAGING OF PRT DIGESTIVE TRACT (2) Thickened endometrium Code(s): R93.8 - ABNORMAL FINDINGS ON DIAGNOSTIC IMAGING OF BODY STRUCTURES Assessment/Plan WREATH MACHINE TENDER evaluation PO Advance diet as tolerated Colonoscopy in 4 weeks
[2017-05-01] MEDS: METRONIDAZOLE 500 MG PREMIXED 500 MG/100 ML MG IVPB SCH ×4 (02:04→20:35)
[2017-05-01] MEDS: LACTATED RINGERS SOLUTION 1,000 ML IV SCH (02:04)
[2017-05-01] MEDS ORDERED: PT OWN MED DRAWER 7, Y5N ONE (08:50)
--- NOTE | 2017-05-01 09:06 | PN ---
Progress Note, Physician Chief Complaint: abdominal pain History of Present Illness: 76 yo PMH obesity and chronic constipation presents with acute onset abdominal pain. No previous colonoscopy no previous pelvic exam or pap smear. She suffers constipation, appears to have a segment of diverticulitis. He right upper and lower quadrant abdominal pain is mostly resolved. Reported a BM and flatus, has been afebrile, no new complaints - Current Medication List Current Medications: Active Medications Heparin Sodium (Porcine) (Heparin -) 5,000 unit SQ BID [facility] Last Admin: 04/30/17 21:07 Dose: 5,000 unit Metronidazole (Flagyl 500mg Premixed Ivpb -) 500 mg in 100 mls @ 100 mls/hr IVPB Q6H-IV [facility] Last Admin: 05/01/17 02:04 Dose: 100 mls/hr Lactated Ringer's (Lactated Ringers Solution) 1,000 mls @ 75 mls/hr IV ASDIR [facility] Last Admin: 05/01/17 02:04 Dose: 75 mls/hr Morphine Sulfate (Morphine Sulfate) 2 mg IVPUSH Q6H PRN PRN Reason: PAIN Last Admin: 04/26/17 21:34 Dose: 2 mg Ondansetron HCl (Zofran -) 8 mg PO Q8H PRN PRN Reason: NAUSEA Last Admin: 04/25/17 18:12 Dose: 8 mg Pantoprazole Sodium (Protonix Iv) 40 mg IVPB DAILY [facility] Last Admin: 04/30/17 09:52 Dose: 40 mg Polyethylene Glycol (Miralax (For Daily Use) -) 17 gm PO BID [facility] Last Admin: 04/30/17 21:08 Dose: 17 gm Promethazine HCl (Phenergan Injection -) 12.5 mg IVPB Q6H PRN PRN Reason: NAUSEA AND/OR VOMITING - Objective Vital Signs: Vital Signs Temperature 98.4 F 05/01/17 06:00 Pulse Rate 74 05/01/17 06:00 Respiratory Rate 20 05/01/17 06:00 Blood Pressure 144/80 05/01/17 06:00 O2 Sat by Pulse Oximetry (%) 95 04/30/17 21:00 Vital Signs Period Temp Pulse Resp BP Sys/Flores Pulse Ox Last 24 Hr 97.4 F-98.4 F 74-83 20-20 124-146/75-94 95 Constitutional: Yes: No Distress, Calm, Obese Eyes: Yes: Conjunctiva Clear, EOM Intact HENT: Yes: Atraumatic, Normocephalic Neck: Yes: Supple, Trachea Midline Cardiovascular: Yes: Regular Rate and Rhythm, S1, S2 Respiratory: Yes: Regular, CTA Bilaterally Gastrointestinal: Yes: Normal Bowel Sounds, Soft, Abdomen, Obese ...Rectal Exam: Yes: Deferred Genitourinary: No: CVA Tenderness - Left, CVA Tenderness - Right Musculoskeletal: No: Muscle Pain, Muscle Weakness Edema: No Peripheral Pulses WNL: Yes Neurological: Yes: Alert, Oriented Psychiatric: Yes: Alert, Oriented Labs: Problem List - Problems (1) Diverticulitis Assessment/Plan: 76yo female obesity and constipation presents with first episode of acute divertculitis, no previous colonoscopy, abdominal pain resolved, tolerating diet , having normal GI function. Diet as tolerated Antibiotics per ID Tool Design Engineer evaluation may be done as an out-patient GI follow-up for colonoscopy 6 week after this episode encouraged to return if symptoms return Code(s): K57.92 - DVTRCLI OF INTEST, PART UNSP, W/O PERF OR ABSCESS W/O BLEED (2) Thickened endometrium Code(s): R93.8 - ABNORMAL FINDINGS ON DIAGNOSTIC IMAGING OF BODY STRUCTURES (3) Constipation Code(s): K59.00 - CONSTIPATION, UNSPECIFIED (4) Obesity (BMI 30-39.9) Code(s): E66.9 - OBESITY, UNSPECIFIED
[2017-05-01] MEDS: HEPARIN NA (PORCINE) 5,000 UNITS/ML 1ML VIAL SQ SCH ×2 (09:14→23:46)
[2017-05-01] MEDS: PANTOPRAZOLE SODIUM 40 MG VIAL IVPB SCH (09:14)
[2017-05-01] MEDS: POLYETHYLENE GLYCOL 3350 119 GM BTL PO SCH ×2 (09:14→23:46)
--- NOTE | 2017-05-01 13:26 | DS ---
Physical Examination Vital Signs: Vital Signs Temperature 98.4 F 05/01/17 06:00 Pulse Rate 74 05/01/17 06:00 Respiratory Rate 20 05/01/17 06:00 Blood Pressure 144/80 05/01/17 06:00 O2 Sat by Pulse Oximetry (%) 95 04/30/17 21:00 Constitutional: Yes: Calm Neck: Yes: Trachea Midline Cardiovascular: Yes: Regular Rate and Rhythm, S1, S2 Respiratory: Yes: CTA Bilaterally Gastrointestinal: Yes: Normal Bowel Sounds, Soft Edema: No Neurological: Yes: Alert, Oriented Labs: CBC, BMP 04/28/17 08:55 04/28/17 08:55 Discharge Summary Reason For Visit: DIVERTICULITIS Current Active Problems Abnormal computed tomography of gastrointestinal tract (Acute) Constipation (Acute) Diverticulitis (Acute) Fluid in endometrial cavity (Acute) Obesity (BMI 30-39.9) (Acute) Thickened endometrium (Acute) Hospital Course: - Admission History of Present Illness: This is a 76 YOF with unremarkable PMH and no surgeries who p/w right-sided abdominal pain worse in the RLQ. The pain started last night at 10 pm and has been a constant 8/10 squeezing/pulsating since then, and radiates to the left upper back. She has haven Advil without relief. She also has had persistent nausea since the onset and two episodes of vomiting yesterday night. She notes mild dizziness and headache, but denies any fever, chills, dysuria, diarrhea, blood in the vomit or stool or urine, or other symptoms. She ate a cup of chocolate for dinner yesterday evening, but no additional greasy or unhealthy foods in ER she got iv fluids, antiemetics, iv abx patient complaining of nausea and abdominal discomfort in bed History Source: Patient, Medical Record - Smoking History Smoking history: Never smoked Have you smoked in the past 12 months: No found to have diverticulitis: levaquin and flagyl got about 7 days of abx no tolerating po diet to FU with GI in 4 weeks for colosncopy on ct scan noted to have endometrial thickening and elevated CA125 needs liquified natural gas specialist evaluation- to be seen as outpatient now consult placed for dr Sue velásquez Condition: Improved - Instructions Diet, Activity, Other Instructions: FU with community organization worker in 4 weeks for colonoscopy see photo cartographer a outpatient in 2 weeks for abnormal pelvic ultrasound- Follow-up: Call Dr. Jackson' office at [phone] to make your appointment ( Thursday 1-2 weeks after colonoscopy). Clinic is held in the Diagnostic Center on the first floor of [facility]. Referrals: Bebeto Gibson MD [Staff Physician] - Sue Velásquez MD [Staff Physician] - 2 Weeks (make appointment because of abnormal pelvic ultrasound) Disposition: HOME - Home Medications Comprehensive Discharge Medication List: Ambulatory Orders Ciprofloxacin HCl [Cipro] 500 mg PO BID #14 tablet 04/23/17 Metronidazole 500 mg PO TID #20 tablet 04/23/17
[2017-05-02 02:32] VITALS: BP 137/73; PULSE 84; TEMP 98.3
[2017-05-02] MEDS: METRONIDAZOLE 500 MG PREMIXED 500 MG/100 ML MG IVPB SCH (03:44)
== END 2017-05-02 07:00 | disposition home or self-care (01) | DRG 392 ==
LOC: JER 10:11 → JERBED 19:11 → J7W 21:33
PROVIDERS: ADMIT Family Medicine; ATTEND Family Medicine
DX: K57.92 Diverticulitis of intestine, part unspecified, without perforation or abscess without bleeding (principal); R93.3 Abnormal findings on diagnostic imaging of other parts of digestive tract; N85.9 Noninflammatory disorder of uterus, unspecified; E66.8 Other obesity; Z68.29 Body mass index [BMI] 29.0-29.9, adult; K59.00 Constipation, unspecified
CPT/HCPCS: 36415; 74177-TC; 76705-TC; 76856-TC; 80053; 81003; 82378; 82550; 83036; 83605; 83690; 83735; 84484; 85025; 85027; 85651; 86140; 86304; 87086; 93005; 93010; 99284-25; J1644; Q9967

== ENCOUNTER 2017-05-05 11:41 | Inpatient (IN) | payer OTHER ==
[2017-05-05 12:02] VITALS: BMI 28.3
[2017-05-05] MEDS ORDERED: SODIUM CHLORIDE 1,000 ML IV STA ×2 (12:37→14:24)
[2017-05-05] MEDS ORDERED: ACETAMINOPHEN 1000 MG/100 ML VIAL (NON FORMULARY) IVPB ONE (12:38)
[2017-05-05] MEDS ORDERED: ACETAMINOPHEN INJECTION 100 ML IVPB ONE (12:45)
--- NOTE | 2017-05-05 12:55 | PDOC ---
History of Present Illness - General Chief Complaint: Syncope/Near Syncope Stated Complaint: SYNCOPE Time Seen by Provider: 05/05/17 12:00 History Source: Patient Exam Limitations: No Limitations - History of Present Illness Initial Comments: 05/05/17 12:02 76 y/o female s/p syncope episode last night after feeling dizzy and feverish. Patient was recently discharged from [facility] secondary diverticulitis a few days ago and states has been taking the antibiotics as prescribed. Patient states last night was walking when she had felt dizzy causing her to fall sideways landing on her left side. Patient states she remembers waking up on the floor and required use of furniture to get up and went to bed. Patient states this morning when her son knocked on the door and she told him of the incident , he decided to bring patient to the ER. Patient currently denies chest pain, shortness of breath but does complain of left rib pain and left abdominal pain. Patient currently complaining of generalized fatigue and fever Presenting Symptoms: Dizziness, Syncope Timing/Duration: reports: constant Severity/Quality: reports: moderate Location: reports: substernal Chest Pain Radiation: reports: no radiation Activities at Onset: reports: none Associated Symptoms: Yes: Dizziness, Fatigue, Fever/chills, Syncope Past History - Travel Traveled outside of the country in the last 30 days: No - Past Medical History Allergies/Adverse Reactions: Allergies Allergy/AdvReac Type Severity Reaction Status Date / Time shellfish derived Allergy Unknown Difficulty Verified 04/29/17 14:26 Breathing Home Medications: Ambulatory Orders Levofloxacin [Levaquin -] 500 mg PO DAILY #4 tablet MDD 1 05/01/17 Metronidazole [Flagyl -] 500 mg PO TIDCM #7 tablet MDD 3 05/01/17 COPD: No DVT: No - Suicide/Smoking/Psychosocial Hx Smoking History: Never smoked Have you smoked in the past 12 months: No Information on smoking cessation initiated: No Hx Alcohol Use: No Drug/Substance Use Hx: No Substance Use Type: None Patient Lives Alone: Yes Lives with/in: lives alone Review of Systems - Review of Systems Able to Perform ROS?: Yes Constitutional: Yes: Chills, Fever, Weakness HEENTM: No: Symptoms Reported Respiratory: No: Symptoms reported Cardiac (ROS): Yes: Lightheadedness, Syncope ABD/GI: Yes: Abdominal cramping. No: Poor Appetite, Poor Fluid Intake : No: Symptoms Reported Musculoskeletal: Yes: Joint Pain (left rib) Integumentary: No: Symptoms Reported Neurological: Yes: Dizziness Endocrine: No: Symptoms Reported Hematologic/Lymphatic: No: Symptoms Reported *Physical Exam - Vital Signs Last Vital Signs Temp Pulse Resp BP Pulse Ox 98.1 F 85 16 140/84 95 05/05/17 18:30 05/05/17 18:30 05/05/17 18:30 05/05/17 18:30 05/05/17 18:30 - Physical Exam General Appearance: Yes: Nourished, Appropriately Dressed. No: Apparent Distress HEENT: positive: Pharynx Normal. negative: Pale Conjunctivae Neck: positive: Supple Respiratory/Chest: positive: Chest Tender (left rib at MAL 7-9th rib. No crepitus or deformity), Lungs Clear, Normal Breath Sounds. negative: Respiratory Distress, Accessory Muscle Use Cardiovascular: positive: Regular Rhythm, Regular Rate. negative: Murmur Gastrointestinal/Abdominal: positive: Soft, Tenderness (left flank , left suprapubic) Extremity: positive: Normal Capillary Refill, Normal Inspection, Normal Range of Motion. negative: Tender, Pedal Edema Integumentary: positive: Normal Color, Warm, Moist Neurologic: positive: Motor Strength 5/5 (ambulatory) Heart Score/ECG Review - ECG Intrepretation Rhythm: Regular Rhythm (rate 100. Unusual P axis and short [place].) ED Treatment Course - LABORATORY CBC & Chemistry Diagram: 05/05/17 13:05 05/05/17 13:05 - ADDITIONAL ORDERS Additional order review: Laboratory Results 05/05/17 05/05/17 05/05/17 17:05 14:16 13:11 PT with INR INR PTT (Actin FS) VBG pH 7.35 POC VBG pCO2 44.3 POC VBG pO2 35.9 Mixed VBG HCO3 24.0 Sodium Potassium Chloride Carbon Dioxide Anion Gap BUN Creatinine Creat Clearance w eGFR Random Glucose Lactic Acid 0.8 Calcium Total Bilirubin AST ALT Alkaline Phosphatase Creatine Kinase Creatine Kinase Index CK-MB (CK-2) Troponin I Total Protein Albumin Urine Color Ltyellow Urine Appearance Clear Urine pH 6.0 Ur Specific [place] 1.026 Urine Protein Negative Urine Glucose (UA) Negative Urine Ketones Negative Urine Blood 2+ H Urine Nitrite Negative Urine Bilirubin Negative Urine Urobilinogen Negative Blood Type Antibody Screen 05/05/17 05/05/17 05/05/17 13:05 13:05 13:05 PT with INR INR PTT (Actin FS) VBG pH POC VBG pCO2 POC VBG pO2 Mixed VBG HCO3 Sodium 137 Potassium 3.6 Chloride 102 Carbon Dioxide 27 Anion Gap 8 BUN 18 D Creatinine 0.9 Creat Clearance w eGFR > 60 Random Glucose 112 H Lactic Acid 0.9 Calcium 8.6 Total Bilirubin 0.5 D AST 60 H D ALT 32 D Alkaline Phosphatase 59 Creatine Kinase 2373 H Creatine Kinase Index 0.1 CK-MB (CK-2) 2.940 Troponin I 0.04 Total Protein 6.9 Albumin 3.7 Urine Color Urine Appearance Urine pH Ur Specific [place] Urine Protein Urine Glucose (UA) Urine Ketones Urine Blood Urine Nitrite Urine Bilirubin Urine Urobilinogen Blood Type O POSITIVE Antibody Screen Negative 05/05/17 13:05 PT with INR 13.10 H INR 1.16 H PTT (Actin FS) 30.6 VBG pH POC VBG pCO2 POC VBG pO2 Mixed VBG HCO3 Sodium Potassium Chloride Carbon Dioxide Anion Gap BUN Creatinine Creat Clearance w eGFR Random Glucose Lactic Acid Calcium Total Bilirubin AST ALT Alkaline Phosphatase Creatine Kinase Creatine Kinase Index CK-MB (CK-2) Troponin I Total Protein Albumin Urine Color Urine Appearance Urine pH Ur Specific [place] Urine Protein Urine Glucose (UA) Urine Ketones Urine Blood Urine Nitrite Urine Bilirubin Urine Urobilinogen Blood Type Antibody Screen 05/05/17 12:40 Influenza Types A,B Antigen (ROMY) - Final Nasopharyngeal Swab - Final 05/05/17 13:05 RBC 4.85 MCV 87.7 MCHC 33.1 RDW 14.4 MPV 7.4 L Neutrophils % 62.6 Lymphocytes % 19.9 D Monocytes % 17.0 H D Eosinophils % 0.0 D Basophils % 0.5 - RADIOLOGY Radiology Studies Ordered: Category Date Time Status ABDOMEN & PELVIS CT WITH CONTR [CT] Stat CT Scan 05/05/17 15:25 Completed CHEST X-RAY PORTABLE* [RAD] Stat Radiology 05/05/17 12:37 Completed RIBS-LEFT SIDE [RAD] Stat Radiology 05/05/17 12:38 Completed - Medications Given in the ED: ED Medications Discontinued Medications Generic Name Dose Route Start Last Admin Trade Name Freq PRN Reason Stop Dose Admin Acetaminophen 1,000 mg 05/05/17 12:38 05/05/17 13:51 Ofirmev Injection - IVPB 05/05/17 12:39 1,000 mg ONCE ONE Administration Sodium Chloride 1,000 mls @ 1,000 mls/hr 05/05/17 12:37 05/05/17 12:55 Normal Saline - IV 05/05/17 13:36 1,000 mls/hr ASDIR STA Administration Sodium Chloride 1,000 mls @ 1,000 mls/hr 05/05/17 14:24 05/05/17 14:38 Normal Saline - IV 05/05/17 15:23 1,000 mls/hr ASDIR STA Administration Oseltamivir Phosphate 75 mg 05/05/17 14:40 05/05/17 15:13 Tamiflu - PO 05/05/17 14:41 75 mg ONCE ONE Administration Medical Decision Making - Medical Decision Making 05/05/17 13:01 Patient here for syncopal episode and found to be febrile along with left sided discomfort after fall. Patient recently discharged home secondary to right- sided diverticulitis. Patient concerning for infectious process including abscess secondary to unresolved diverticulitis, UTI, rib/ pelvic fracture, rhabdomyolysis, dehydration. Patient ordered for cardiac and septic workup. Patient also ordered a head CT secondary to syncope. 05/05/17 13:46 Laboratory Tests 05/05/17 13:05 WBC 5.4 Hgb 14.1 Hct 42.6 Plt Count 288 Neutrophils % 62.6 Monocytes % 17.0 H D 05/05/17 14:20 Patient influenza A positive. Chest x-ray negative.Will endorse to attending Dr. patrick *DC/Admit/Observation/Transfer Diagnosis at time of Disposition: Syncope, Influenza A, Rhabdomyolysis - Referrals - Patient Instructions - Post Discharge Activity
[2017-05-05 13:14] LABS: VENOUS PC02 44.3 mmHg (38-52); VENOUS PH 7.35 (7.32-7.42); VENOUS PO2 35.9 mmHg (28-48)
[2017-05-05 13:33] LABS: BASO % 0.5 % (0-2.0); HEMATOCRIT 42.6 % (32.4-45.2); HEMOGLOBIN 14.1 GM/dL (10.7-15.3); LYMPH % 19.9 % (8-40); MCHC 33.1 g/dl (32.0-36.0); MEAN CELL VOLUME 87.7 fl (80-96); MEAN PLT VOLUME 7.4 fl (7.5-11.1); NEUT % 62.6 % (42.8-82.8); PLATELET COUNT 288 K/MM3 (134-434); RBC 4.85 M/mm3 (3.60-5.2); RDW 14.4 % (11.6-15.6); WHITE BLOOD COUNT 5.4 K/mm3 (4.0-10.0)
[2017-05-05 13:49] LABS: ALBUMIN 3.7 g/dl (3.4-5.0); ANION GAP 8 (8-16); BILIRUBIN,TOTAL 0.5 mg/dL (0.2-1.0); BLOOD UREA NITROGEN 18 mg/dL (7-18); CALCIUM 8.6 mg/dL (8.5-10.1); CHLORIDE 102 mmol/L (98-107); CO2 27 mmol/L (21-32); CREATININE 0.9 mg/dL (0.55-1.02); GLUCOSE,RANDOM 112 mg/dL (74-106); POTASSIUM 3.6 mmol/L (3.5-5.1); SGOT/AST 60 U/L (15-37); SGPT/ALT 32 U/L (12-78); SODIUM 137 mmol/L (136-145); TOT PROT 6.9 g/dl (6.4-8.2)
[2017-05-05 13:55] LABS: INR 1.16 (0.82-1.09); PROTHROMBIN TIME (PATIENT) 13.1 SEC (9.98-11.88)
[2017-05-05 13:58] LABS: ACTIVATED PTT 30.6 SECONDS (26.9-34.4)
[2017-05-05 14:01] LABS: ALK PHOS 59 U/L (45-117)
--- NOTE | 2017-05-05 14:32 | EKG ---
Test Reason : Blood Pressure : / mmHG Vent. Rate : 100 BPM Atrial Rate : 100 BPM P-R Int : 136 ms QRS Dur : 068 ms QT Int : 308 ms P-R-T Axes : -62 -16 060 degrees QTc Int : 397 ms UNUSUAL P AXIS AND SHORT CT, PROBABLE JUNCTIONAL TACHYCARDIA NONSPECIFIC T WAVE ABNORMALITY ABNORMAL ECG WHEN COMPARED WITH ECG OF 24-APR-2017 08:13, JUNCTIONAL RHYTHM HAS REPLACED SINUS RHYTHM NONSPECIFIC T WAVE ABNORMALITY, WORSE IN LATERAL LEADS QT HAS SHORTENED Confirmed by JOE DAVIDSON, MERVAT ([id number]) on 05/05/2017 2:32:15 PM Referred By: Confirmed By:MERVAT DIAZ MD
[2017-05-05] MEDS ORDERED: OSELTAMIVIR PHOSPHATE 75 MG CAPSULE PO ONE (14:40)
[2017-05-05] MEDS ORDERED: OSELTAMIVIR PHOSPHATE 75 MG CAPSULE ONE (15:00)
--- NOTE | 2017-05-05 17:09 | PDOC ---
*Physical Exam - Vital Signs Last Vital Signs Temp Pulse Resp BP Pulse Ox 98.9 F 93 H 22 142/88 99 05/05/17 16:14 05/05/17 16:14 05/05/17 16:14 05/05/17 16:14 05/05/17 16:14 ED Treatment Course - LABORATORY CBC & Chemistry Diagram: 05/05/17 13:05 05/05/17 13:05 - ADDITIONAL ORDERS Additional order review: Laboratory Results 05/05/17 05/05/17 05/05/17 14:16 13:11 13:05 PT with INR INR PTT (Actin FS) VBG pH 7.35 POC VBG pCO2 44.3 POC VBG pO2 35.9 Mixed VBG HCO3 24.0 Sodium Potassium Chloride Carbon Dioxide Anion Gap BUN Creatinine Creat Clearance w eGFR Random Glucose Lactic Acid 0.8 Calcium Total Bilirubin AST ALT Alkaline Phosphatase Creatine Kinase Creatine Kinase Index CK-MB (CK-2) Troponin I Total Protein Albumin Blood Type O POSITIVE Antibody Screen Negative 05/05/17 05/05/17 05/05/17 13:05 13:05 13:05 PT with INR 13.10 H INR 1.16 H PTT (Actin FS) 30.6 VBG pH POC VBG pCO2 POC VBG pO2 Mixed VBG HCO3 Sodium 137 Potassium 3.6 Chloride 102 Carbon Dioxide 27 Anion Gap 8 BUN 18 D Creatinine 0.9 Creat Clearance w eGFR > 60 Random Glucose 112 H Lactic Acid 0.9 Calcium 8.6 Total Bilirubin 0.5 D AST 60 H D ALT 32 D Alkaline Phosphatase 59 Creatine Kinase 2373 H Creatine Kinase Index 0.1 CK-MB (CK-2) 2.940 Troponin I 0.04 Total Protein 6.9 Albumin 3.7 Blood Type Antibody Screen 05/05/17 12:40 Influenza Types A,B Antigen (ROMY) - Final Nasopharyngeal Swab - Final 05/05/17 13:05 RBC 4.85 MCV 87.7 MCHC 33.1 RDW 14.4 MPV 7.4 L Neutrophils % 62.6 Lymphocytes % 19.9 D Monocytes % 17.0 H D Eosinophils % 0.0 D Basophils % 0.5 - RADIOLOGY Radiology Studies Ordered: Category Date Time Status HEAD CT WITHOUT CONTRAST [CT] Stat CT Scan 05/05/17 17:06 Ordered - Medications Given in the ED: ED Medications Discontinued Medications Generic Name Dose Route Start Last Admin Trade Name Freq PRN Reason Stop Dose Admin Acetaminophen 1,000 mg 05/05/17 12:38 05/05/17 13:51 Ofirmev Injection - IVPB 05/05/17 12:39 1,000 mg ONCE ONE Administration Sodium Chloride 1,000 mls @ 1,000 mls/hr 05/05/17 12:37 05/05/17 12:55 Normal Saline - IV 05/05/17 13:36 1,000 mls/hr ASDIR STA Administration Sodium Chloride 1,000 mls @ 1,000 mls/hr 05/05/17 14:24 05/05/17 14:38 Normal Saline - IV 05/05/17 15:23 1,000 mls/hr ASDIR STA Administration Oseltamivir Phosphate 75 mg 05/05/17 14:40 05/05/17 15:13 Tamiflu - PO 05/05/17 14:41 75 mg ONCE ONE Administration Medical Decision Making - Medical Decision Making 05/05/17 17:08 76F with recently treated diverticulitis presenting with fever and syncope. Found to be influenza positive. Labs also notable for mild rhabdomyolisis. Will admit for IV hydration and tele monitoring. Signed out to HEALTH PROGRAM ANALYST Norm Chiang Case discussed in detail with admitting physician including history, physical exam and ancillary studies. Admitting physician has assumed care for the patient and will follow all pending diagnostics and complete the evaluation and treatment. *DC/Admit/Observation/Transfer Diagnosis at time of Disposition: Syncope, Influenza A, Rhabdomyolysis - Discharge Dispostion Admit: Yes - Referrals - Patient Instructions - Post Discharge Activity - Attestations Physician Attestion: 05/05/17 17:09 I, Dr. Quinton Carney MD, attest that this document has been prepared under my direction and personally reviewed by me in its entirety. I further attest, that it accurately reflects all work, treatment, procedures and medical decision -making performed by me.
[2017-05-05] MEDS: SODIUM CHLORIDE 1,000 ML IV SCH ×2 (17:27→22:19)
[2017-05-05 17:46] LABS: URINE APPEARANCE CLEAR; URINE BILIRUBIN NEGATIVE (NEGATIVE); URINE BLOOD 2+ (NEGATIVE); URINE COLOR LTYELLOW; URINE GLUCOSE (UA) NEGATIVE (NEGATIVE); URINE KETONE NEGATIVE (NEGATIVE); URINE LEUK ESTERASE NEGATIVE (NEGATIVE); URINE NITRITE NEGATIVE (NEGATIVE); URINE PROTEIN NEGATIVE (NEGATIVE); URINE UROBILINOGEN NEGATIVE mg/dL (0.2-1.0)
[2017-05-05] MEDS: HEPARIN NA (PORCINE) 5,000 UNITS/ML 1ML VIAL SQ SCH (22:19)
[2017-05-05] MEDS: OSELTAMIVIR PHOSPHATE 75 MG CAPSULE PO SCH (22:19)
[2017-05-06 09:20] LABS: BASO % 1.1 % (0-2.0); EOS % 1.6 % (0-4.5); HEMATOCRIT 38.9 % (32.4-45.2); HEMOGLOBIN 12.9 GM/dL (10.7-15.3); LYMPH % 44.8 % (8-40); MCHC 33.1 g/dl (32.0-36.0); MEAN CELL VOLUME 87.4 fl (80-96); MEAN PLT VOLUME 7.2 fl (7.5-11.1); MONO % 18.3 % (3.8-10.2); NEUT % 34.2 % (42.8-82.8); PLATELET COUNT 253 K/MM3 (134-434); RBC 4.45 M/mm3 (3.60-5.2); RDW 14.1 % (11.6-15.6)
--- NOTE | 2017-05-06 09:38 | CON.CARD ---
Consult Consult Specialty:: Cardiology - History of Present Illness History of Present Illness: 76 y/o female s/p syncope episode last night after feeling dizzy and feverish. Patient was recently discharged from [facility] secondary diverticulitis a few days ago and states has been taking the antibiotics as prescribed. Patient states last night was walking when she had felt dizzy causing her to fall sideways landing on her left side. Patient states she remembers waking up on the floor and required use of furniture to get up and went to bed. Patient states this morning when her son knocked on the door and she told him of the incident , he decided to bring patient to the ER. Patient currently denies chest pain, shortness of breath but does complain of left rib pain and left abdominal pain. Patient currently complaining of generalized fatigue and fever - History Source History Provided By: Patient, Medical Record - Alcohol/Substance Use Hx Alcohol Use: No - Smoking History Smoking history: Never smoked Have you smoked in the past 12 months: No Home Medications - Allergies Allergies/Adverse Reactions: Allergies Allergy/AdvReac Type Severity Reaction Status Date / Time shellfish derived Allergy Unknown Difficulty Verified 04/29/17 14:26 Breathing - Home Medications Home Medications: Ambulatory Orders Levofloxacin [Levaquin] 500 mg PO DAILY 05/05/17 Metronidazole [Flagyl -] 500 mg PO TIDCM 05/05/17 Review of Systems - Review of Systems Constitutional: reports: No Symptoms Eyes: reports: No Symptoms HENT: reports: No Symptoms Neck: reports: No Symptoms Cardiovascular: reports: No Symptoms Gastrointestinal: reports: No Symptoms Genitourinary: reports: No Symptoms Breasts: reports: No Symptoms Reported Musculoskeletal: reports: No Symptoms Integumentary: reports: No Symptoms Neurological: reports: Syncope Endocrine: reports: No Symptoms Hematology/Lymphatic: reports: No Symptoms Psychiatric: reports: No Symptoms Vital Signs: Vital Signs Temperature 98.7 F 05/06/17 06:00 Pulse Rate 100 H 05/06/17 06:00 Respiratory Rate 20 05/06/17 06:00 Blood Pressure 126/78 05/06/17 06:00 O2 Sat by Pulse Oximetry (%) 96 05/06/17 06:00 Constitutional: Yes: Well Nourished, No Distress, Calm Eyes: Yes: WNL, Conjunctiva Clear, EOM Intact HENT: Yes: WNL, Atraumatic, Normocephalic Neck: Yes: WNL, Supple, Trachea Midline Respiratory: Yes: WNL, Regular, CTA Bilaterally Gastrointestinal: Yes: WNL, Normal Bowel Sounds Renal/: Yes: WNL Cardiovascular: Yes: WNL, Regular Rate and Rhythm Musculoskeletal: Yes: WNL Extremities: Yes: WNL Integumentary: Yes: WNL Neurological: Yes: WNL, Alert, Oriented ...Motor Strength: WNL Psychiatric: Yes: WNL, Alert, Oriented - Other Data Labs, Other Data: CBC, BMP 05/06/17 09:15 INR, PTT INR 1.16 (0.82-1.09) H 05/05/17 13:05 Troponin, BNP 05/05/17 13:05 Troponin I 0.04 Troponin, BNP 05/05/17 13:05 Troponin I 0.04 Laboratory Tests 05/05/17 05/05/17 05/05/17 13:05 13:05 13:05 WBC 5.4 RBC 4.85 Hgb 14.1 Hct 42.6 MCV 87.7 MCH 29.0 MCHC 33.1 RDW 14.4 Plt Count 288 MPV 7.4 L Neutrophils % 62.6 Lymphocytes % 19.9 D Monocytes % 17.0 H D Eosinophils % 0.0 D Basophils % 0.5 PT with INR 13.10 H INR 1.16 H PTT (Actin FS) 30.6 VBG pH POC VBG pCO2 POC VBG pO2 Mixed VBG HCO3 Sodium 137 Potassium 3.6 Chloride 102 Carbon Dioxide 27 Anion Gap 8 BUN 18 D Creatinine 0.9 Creat Clearance w eGFR > 60 Random Glucose 112 H Lactic Acid Calcium 8.6 Total Bilirubin 0.5 D AST 60 H D ALT 32 D Alkaline Phosphatase 59 Creatine Kinase 2373 H Creatine Kinase Index 0.1 CK-MB (CK-2) 2.940 Troponin I 0.04 Total Protein 6.9 Albumin 3.7 Urine Color Urine Appearance Urine pH Ur Specific [place] Urine Protein Urine Glucose (UA) Urine Ketones Urine Blood Urine Nitrite Urine Bilirubin Urine Urobilinogen Ur Leukocyte Esterase Blood Type Antibody Screen 05/05/17 05/05/17 05/05/17 13:05 13:05 13:11 WBC RBC Hgb Hct MCV MCH MCHC RDW Plt Count MPV Neutrophils % Lymphocytes % Monocytes % Eosinophils % Basophils % PT with INR INR PTT (Actin FS) VBG pH 7.35 POC VBG pCO2 44.3 POC VBG pO2 35.9 Mixed VBG HCO3 24.0 Sodium Potassium Chloride Carbon Dioxide Anion Gap BUN Creatinine Creat Clearance w eGFR Random Glucose Lactic Acid 0.9 Calcium Total Bilirubin AST ALT Alkaline Phosphatase Creatine Kinase Creatine Kinase Index CK-MB (CK-2) Troponin I Total Protein Albumin Urine Color Urine Appearance Urine pH Ur Specific [place] Urine Protein Urine Glucose (UA) Urine Ketones Urine Blood Urine Nitrite Urine Bilirubin Urine Urobilinogen Ur Leukocyte Esterase Blood Type O POSITIVE Antibody Screen Negative 05/05/17 05/05/17 05/05/17 14:16 17:05 20:00 WBC RBC Hgb Hct MCV MCH MCHC RDW Plt Count MPV Neutrophils % Lymphocytes % Monocytes % Eosinophils % Basophils % PT with INR INR PTT (Actin FS) VBG pH POC VBG pCO2 POC VBG pO2 Mixed VBG HCO3 Sodium Potassium Chloride Carbon Dioxide Anion Gap BUN Creatinine Creat Clearance w eGFR Random Glucose Lactic Acid 0.8 Calcium Total Bilirubin AST ALT Alkaline Phosphatase Creatine Kinase Creatine Kinase Index CK-MB (CK-2) 2.333 Troponin I Total Protein Albumin Urine Color Ltyellow Urine Appearance Clear Urine pH 6.0 Ur Specific [place] 1.026 Urine Protein Negative Urine Glucose (UA) Negative Urine Ketones Negative Urine Blood 2+ H Urine Nitrite Negative Urine Bilirubin Negative Urine Urobilinogen Negative Ur Leukocyte Esterase Negative Blood Type Antibody Screen 05/06/17 05/06/17 09:15 09:15 WBC 3.0 L D RBC 4.45 Hgb 12.9 Hct 38.9 MCV 87.4 MCH 29.0 MCHC 33.1 RDW 14.1 Plt Count 253 MPV 7.2 L Neutrophils % 34.2 L D Lymphocytes % 44.8 H D Monocytes % 18.3 H Eosinophils % 1.6 D Basophils % 1.1 PT with INR INR PTT (Actin FS) VBG pH POC VBG pCO2 POC VBG pO2 Mixed VBG HCO3 Sodium 140 Potassium 3.5 Chloride 106 Carbon Dioxide 26 Anion Gap 8 BUN 15 Creatinine 0.9 Creat Clearance w eGFR > 60 Random Glucose 143 H D Lactic Acid Calcium 7.7 L Total Bilirubin 0.4 AST 60 H ALT 33 Alkaline Phosphatase 52 Creatine Kinase 1739 H Creatine Kinase Index 0.0 CK-MB (CK-2) 1.350 Troponin I 0.04 Total Protein 6.0 L Albumin 3.0 L Urine Color Urine Appearance Urine pH Ur Specific [place] Urine Protein Urine Glucose (UA) Urine Ketones Urine Blood Urine Nitrite Urine Bilirubin Urine Urobilinogen Ur Leukocyte Esterase Blood Type Antibody Screen Laboratory Tests 05/05/17 05/05/17 05/05/17 13:05 13:05 13:05 WBC 5.4 RBC 4.85 Hgb 14.1 Hct 42.6 MCV 87.7 MCH 29.0 MCHC 33.1 RDW 14.4 Plt Count 288 MPV 7.4 L Neutrophils % 62.6 Lymphocytes % 19.9 D Monocytes % 17.0 H D Eosinophils % 0.0 D Basophils % 0.5 PT with INR 13.10 H INR 1.16 H PTT (Actin FS) 30.6 VBG pH POC VBG pCO2 POC VBG pO2 Mixed VBG HCO3 Sodium 137 Potassium 3.6 Chloride 102 Carbon Dioxide 27 Anion Gap 8 BUN 18 D Creatinine 0.9 Creat Clearance w eGFR > 60 Random Glucose 112 H Lactic Acid Calcium 8.6 Total Bilirubin 0.5 D AST 60 H D ALT 32 D Alkaline Phosphatase 59 Creatine Kinase 2373 H Creatine Kinase Index 0.1 CK-MB (CK-2) 2.940 Troponin I 0.04 Total Protein 6.9 Albumin 3.7 Urine Color Urine Appearance Urine pH Ur Specific [place] Urine Protein Urine Glucose (UA) Urine Ketones Urine Blood Urine Nitrite Urine Bilirubin Urine Urobilinogen Ur Leukocyte Esterase Blood Type Antibody Screen 05/05/17 05/05/17 05/05/17 13:05 13:05 13:11 WBC RBC Hgb Hct MCV MCH MCHC RDW Plt Count MPV Neutrophils % Lymphocytes % Monocytes % Eosinophils % Basophils % PT with INR INR PTT (Actin FS) VBG pH 7.35 POC VBG pCO2 44.3 POC VBG pO2 35.9 Mixed VBG HCO3 24.0 Sodium Potassium Chloride Carbon Dioxide Anion Gap BUN Creatinine Creat Clearance w eGFR Random Glucose Lactic Acid 0.9 Calcium Total Bilirubin AST ALT Alkaline Phosphatase Creatine Kinase Creatine Kinase Index CK-MB (CK-2) Troponin I Total Protein Albumin Urine Color Urine Appearance Urine pH Ur Specific [place] Urine Protein Urine Glucose (UA) Urine Ketones Urine Blood Urine Nitrite Urine Bilirubin Urine Urobilinogen Ur Leukocyte Esterase Blood Type O POSITIVE Antibody Screen Negative 05/05/17 05/05/17 05/05/17 14:16 17:05 20:00 WBC RBC Hgb Hct MCV MCH MCHC RDW Plt Count MPV Neutrophils % Lymphocytes % Monocytes % Eosinophils % Basophils % PT with INR INR PTT (Actin FS) VBG pH POC VBG pCO2 POC VBG pO2 Mixed VBG HCO3 Sodium Potassium Chloride Carbon Dioxide Anion Gap BUN Creatinine Creat Clearance w eGFR Random Glucose Lactic Acid 0.8 Calcium Total Bilirubin AST ALT Alkaline Phosphatase Creatine Kinase Creatine Kinase Index CK-MB (CK-2) 2.333 Troponin I Total Protein Albumin Urine Color Ltyellow Urine Appearance Clear Urine pH 6.0 Ur Specific [place] 1.026 Urine Protein Negative Urine Glucose (UA) Negative Urine Ketones Negative Urine Blood 2+ H Urine Nitrite Negative Urine Bilirubin Negative Urine Urobilinogen Negative Ur Leukocyte Esterase Negative Blood Type Antibody Screen 05/06/17 05/06/17 09:15 09:15 WBC 3.0 L D RBC 4.45 Hgb 12.9 Hct 38.9 MCV 87.4 MCH 29.0 MCHC 33.1 RDW 14.1 Plt Count 253 MPV 7.2 L Neutrophils % 34.2 L D Lymphocytes % 44.8 H D Monocytes % 18.3 H Eosinophils % 1.6 D Basophils % 1.1 PT with INR INR PTT (Actin FS) VBG pH POC VBG pCO2 POC VBG pO2 Mixed VBG HCO3 Sodium 140 Potassium 3.5 Chloride 106 Carbon Dioxide 26 Anion Gap 8 BUN 15 Creatinine 0.9 Creat Clearance w eGFR > 60 Random Glucose 143 H D Lactic Acid Calcium 7.7 L Total Bilirubin 0.4 AST 60 H ALT 33 Alkaline Phosphatase 52 Creatine Kinase 1739 H Creatine Kinase Index 0.0 CK-MB (CK-2) 1.350 Troponin I 0.04 Total Protein 6.0 L Albumin 3.0 L Urine Color Urine Appearance Urine pH Ur Specific [place] Urine Protein Urine Glucose (UA) Urine Ketones Urine Blood Urine Nitrite Urine Bilirubin Urine Urobilinogen Ur Leukocyte Esterase Blood Type Antibody Screen Imaging - Results Chest X-ray: Image Reviewed (no i/e) EKG: Image Reviewed (sr rep abn) Problem List - Problems (1) Influenza A Code(s): J10.1 - FLU DUE TO OTH IDENT INFLUENZA VIRUS W OTH RESP MANIFEST (2) Rhabdomyolysis Code(s): M62.82 - RHABDOMYOLYSIS (3) Syncope Code(s): R55 - SYNCOPE AND COLLAPSE (4) Abnormal computed tomography of gastrointestinal tract Code(s): R93.3 - ABNORMAL FINDINGS ON DX IMAGING OF PRT DIGESTIVE TRACT (5) Constipation Code(s): K59.00 - CONSTIPATION, UNSPECIFIED (6) Diverticulitis Code(s): K57.92 - DVTRCLI OF INTEST, PART UNSP, W/O PERF OR ABSCESS W/O BLEED (7) Fluid in endometrial cavity Code(s): N85.9 - NONINFLAMMATORY DISORDER OF UTERUS, UNSPECIFIED (8) Obesity (BMI 30-39.9) Code(s): E66.9 - OBESITY, UNSPECIFIED (9) Thickened endometrium Code(s): R93.8 - ABNORMAL FINDINGS ON DIAGNOSTIC IMAGING OF BODY STRUCTURES Assessment/Plan s/p fall ? syncope Fever r/o influenza s/p diverticulitis Plan ekg echo cardiac w/u when infection resolved
[2017-05-06 09:46] LABS: ANION GAP 8 (8-16); BILIRUBIN,TOTAL 0.4 mg/dL (0.2-1.0); BLOOD UREA NITROGEN 15 mg/dL (7-18); CALCIUM 7.7 mg/dL (8.5-10.1); CHLORIDE 106 mmol/L (98-107); CO2 26 mmol/L (21-32); CREATININE 0.9 mg/dL (0.55-1.02); GLUCOSE,RANDOM 143 mg/dL (74-106); POTASSIUM 3.5 mmol/L (3.5-5.1); SGOT/AST 60 U/L (15-37); SGPT/ALT 33 U/L (12-78); SODIUM 140 mmol/L (136-145)
--- NOTE | 2017-05-06 09:46 | HP ---
Admitting History and Physical - Admission History of Present Illness: 76 y/o female s/p syncope episode last night after feeling dizzy and feverish. Patient was recently discharged from [facility] secondary diverticulitis a few days ago and states has been taking the antibiotics as prescribed. Patient states last night was walking when she had felt dizzy causing her to fall sideways landing on her left side. Patient states she remembers waking up on the floor and required use of furniture to get up and went to bed. Patient states this morning when her son knocked on the door and she told him of the incident , he decided to bring patient to the ER. Patient currently denies chest pain, shortness of breath but does complain of left rib pain and left abdominal pain. Patient currently complaining of generalized fatigue and fever - Past Medical History Cardiovascular: No: HTN, Hyperlipdemia Pulmonary: No: COPD Gastrointestinal: Yes: Diverticulitis Endocrine: No: Diabetes Mellitus - Smoking History Smoking history: Never smoked Have you smoked in the past 12 months: No - Alcohol/Substance Use Hx Alcohol Use: No Home Medications - Allergies Allergies/Adverse Reactions: Allergies Allergy/AdvReac Type Severity Reaction Status Date / Time shellfish derived Allergy Unknown Difficulty Verified 04/29/17 14:26 Breathing - Home Medications Home Medications: Ambulatory Orders Levofloxacin [Levaquin] 500 mg PO DAILY 05/05/17 Metronidazole [Flagyl -] 500 mg PO TIDCM 05/05/17 Review of Systems - Review of Systems Constitutional: reports: Fever, Weakness Cardiovascular: denies: Chest Pain, Edema Respiratory: reports: Cough, SOB, SOB on Exertion Physical Examination Vital Signs: Vital Signs Temperature 98.7 F 05/06/17 06:00 Pulse Rate 100 H 05/06/17 06:00 Respiratory Rate 20 05/06/17 06:00 Blood Pressure 126/78 05/06/17 06:00 O2 Sat by Pulse Oximetry (%) 96 05/06/17 06:00 Labs: CBC, BMP 05/06/17 09:15 Problem List - Problems (1) Influenza A Assessment/Plan: TAMIFLU ISOLATION Code(s): J10.1 - FLU DUE TO OTH IDENT INFLUENZA VIRUS W OTH RESP MANIFEST (2) Rhabdomyolysis Assessment/Plan: IVF MONITOR Code(s): M62.82 - RHABDOMYOLYSIS (3) Diverticulitis Assessment/Plan: IV LEVAQUIN ID CONSULT Code(s): K57.92 - DVTRCLI OF INTEST, PART UNSP, W/O PERF OR ABSCESS W/O BLEED
[2017-05-06 09:58] LABS: ALK PHOS 52 U/L (45-117)
[2017-05-06] MEDS ORDERED: PT OWN MED DRAWER 7, Y5N ONE ×2 (11:04→21:40)
[2017-05-06] MEDS: HEPARIN NA (PORCINE) 5,000 UNITS/ML 1ML VIAL SQ SCH ×2 (11:05→21:45)
[2017-05-06] MEDS: OSELTAMIVIR PHOSPHATE 75 MG CAPSULE PO SCH ×2 (11:06→21:47)
--- NOTE | 2017-05-06 11:50 | PN ---
Progress Note (short form) - Note Progress Note: ID Consult dictated Acute influenza A Near syncope S/P diverticulitis Continue Tamiflu 75 mg po bid x 5d Droplet preautions
[2017-05-06] MEDS: ALBUTEROL SO4 2.5/IPRATROPIUM 0.5 INH SOL 3 ML VIAL.NEB. NEB SCH ×2 (13:00→18:54)
--- NOTE | 2017-05-06 13:53 | EKG ---
Test Reason : Blood Pressure : / mmHG Vent. Rate : 101 BPM Atrial Rate : 101 BPM P-R Int : 134 ms QRS Dur : 066 ms QT Int : 364 ms P-R-T Axes : 059 -27 062 degrees QTc Int : 471 ms SINUS TACHYCARDIA NONSPECIFIC ST AND T WAVE ABNORMALITY ABNORMAL ECG WHEN COMPARED WITH ECG OF 05-MAY-2017 12:26, SINUS RHYTHM HAS REPLACED JUNCTIONAL RHYTHM QT HAS LENGTHENED Confirmed by JOE DAVIDSON, MERVAT ([id number]) on 05/06/2017 1:53:28 PM Referred By: Ruth Ann ROSARIO Confirmed By:MERVAT DIAZ MD
--- NOTE | 2017-05-06 15:12 | CONS ---
DATE OF CONSULTATION: DATE OF DICTATION: 05/06/2017 HISTORY OF PRESENT ILLNESS: The patient is a 76-year-old female who is evaluated for acute influenza A. She was recently hospitalized at [facility] from April 23 through May 02 for acute diverticulitis of the mid ascending colon. She was treated with a course of IV antibiotic therapy. Patient returned home. She is not readmitted with complaints of dizziness, fever, near syncope, and fall. She was evaluated in the emergency room where a rapid influenza antigen was performed and was positive for influenza A. She was started on Tamiflu. At the present time, she complains of generalized weakness. She is noted to be slightly short of breath on exertion. Her course has been complicated by fever and leukopenia. She is unsure whether or not she received influenza vaccine this year. PAST MEDICAL HISTORY: Positive for acute diverticulitis, history of obesity. ALLERGIES: No known drug allergies. MEDICATIONS: Include Levaquin, heparin, DuoNeb, Tamiflu. SOCIAL HISTORY: She resides at home. She is a nonsmoker/nondrinker. SYSTEMS REVIEW: Neurologic: Positive for near syncope. Cardiac: Negative for chest pain or palpitations. Respiratory: As per HPI. Gastrointestinal: Status post recent diverticulitis. Genitourinary: Negative for urinary tract infection. LABORATORY DATA: White count 3.0, 34 neutrophils, 44 lymphocytes, 18 monocytes, hematocrit 38.9, platelet count 253. BUN 15, creatinine 0.9. Blood and urine cultures pending. Influenza rapid test positive. PHYSICAL EXAMINATION: General: She is supine in bed. She is slightly short of breath at rest. Vital signs: Temperature 100.7, blood pressure 126/78, pulse 100 and regular, respirations 20 per minute. HEENT: Sclerae anicteric. Dry mucous membranes. Heart: Heart sounds S1, S2. Lungs: Scattered rhonchi and expiratory wheeze. Abdomen: Obese, soft, slight left lower quadrant tenderness to palpation. Extremities: Negative for edema. IMPRESSION: 1. Acute influenza A. 2. Near syncope. 3. Status post diverticulitis. Continue Tamiflu 75 mg p.o. b.i.d. complete 5-day course. Droplet precautions. Hydration. Thank you for the kind referral. ADELINA SOLORZANO M.D. [id number]
[2017-05-06] MEDS ORDERED: hydrOXYzine HCL 25 MG TABLET (FP) PO ONE (22:30)
[2017-05-07] MEDS: ALBUTEROL SO4 2.5/IPRATROPIUM 0.5 INH SOL 3 ML VIAL.NEB. NEB SCH ×5 (06:00→23:25)
[2017-05-07 07:42] LABS: HEMATOCRIT 39.6 % (32.4-45.2); MCH 28.9 pg (25.7-33.7); MCHC 32.8 g/dl (32.0-36.0); MEAN PLT VOLUME 7.4 fl (7.5-11.1); PLATELET COUNT 262 K/MM3 (134-434)
[2017-05-07 08:06] LABS: ANION GAP 9 (8-16); BLOOD UREA NITROGEN 15 mg/dL (7-18); CALCIUM 8.2 mg/dL (8.5-10.1); CHLORIDE 107 mmol/L (98-107); CO2 26 mmol/L (21-32); GLUCOSE,RANDOM 102 mg/dL (74-106); POTASSIUM 3.2 mmol/L (3.5-5.1); SGOT/AST 52 U/L (15-37); SGPT/ALT 33 U/L (12-78); SODIUM 142 mmol/L (136-145)
[2017-05-07 08:11] LABS: ALK PHOS 53 U/L (45-117); BILIRUBIN,TOTAL 0.2 mg/dL (0.2-1.0); CREATININE 0.8 mg/dL (0.55-1.02); TOT PROT 5.8 g/dl (6.4-8.2)
--- NOTE | 2017-05-07 08:19 | PN ---
Progress Note, Physician Chief Complaint: Pt A&Ox3; c/o nasal congestion, shortness of breath; no dizziness. History of Present Illness: Pt is a 76 y/o woman s/p syncope episode last night after feeling dizzy and feverish. Patient was recently discharged from [facility] secondary diverticulitis a few days ago and states has been taking the antibiotics as prescribed. Patient states last night was walking when she had felt dizzy causing her to fall sideways landing on her left side. Patient states she remembers waking up on the floor and required use of furniture to get up and went to bed. Patient states this morning when her son knocked on the door and she told him of the incident , he decided to bring patient to the ER. Patient currently denies chest pain, shortness of breath but does complain of left rib pain and left abdominal pain. Patient currently complaining of generalized fatigue and fever - Current Medication List Current Medications: Active Medications Albuterol/Ipratropium (Duoneb -) 1 amp NEB QIDR [facility] Last Admin: 05/07/17 06:00 Dose: 1 amp Heparin Sodium (Porcine) (Heparin -) 5,000 unit SQ BID [facility] Last Admin: 05/06/17 21:45 Dose: 5,000 unit Levofloxacin (Levaquin 500 Mg Premixed Ivpb -) 500 mg in 100 mls @ 100 mls/hr IVPB DAILY [facility] Last Admin: 05/06/17 12:12 Dose: 100 mls/hr Oseltamivir Phosphate (Tamiflu -) 75 mg PO BID [facility] Stop: 05/10/17 21:59 Last Admin: 05/06/17 21:47 Dose: 75 mg - Objective Vital Signs: Vital Signs Temperature 97.8 F 05/07/17 06:00 Pulse Rate 87 05/07/17 06:00 Respiratory Rate 20 05/07/17 06:00 Blood Pressure 146/89 05/07/17 06:00 O2 Sat by Pulse Oximetry (%) 98 05/06/17 22:00 Labs: CBC, BMP 05/07/17 06:25 INR, PTT INR 1.16 (0.82-1.09) H 05/05/17 13:05 Problem List - Problems (1) Acute bronchitis Code(s): J20.9 - ACUTE BRONCHITIS, UNSPECIFIED (2) Influenza A Assessment/Plan: On Tamiflu; f/u with ID. Code(s): J10.1 - FLU DUE TO OTH IDENT INFLUENZA VIRUS W OTH RESP MANIFEST (3) Rhabdomyolysis Assessment/Plan: no significant rise in CKMB or TNI. Hydration; f/u BUN/Cr, electrolytes (K repleted; f/u Mg as well); Is and Os. Code(s): M62.82 - RHABDOMYOLYSIS (4) Syncope Assessment/Plan: telemetry: NSR ECHO: normal LVEF; abnormal diastolic compliance. F/u carotid artery US. Maintain hydration. Orthostatic VS. Code(s): R55 - SYNCOPE AND COLLAPSE (5) Obesity (BMI 30-39.9) Assessment/Plan: F/u TSH and lipids. Diet modification. Code(s): E66.9 - OBESITY, UNSPECIFIED
--- NOTE | 2017-05-07 09:01 | PN ---
Progress Note, Physician - Current Medication List Current Medications: Active Medications Albuterol/Ipratropium (Duoneb -) 1 amp NEB QIDR [facility] Last Admin: 05/07/17 06:00 Dose: 1 amp Heparin Sodium (Porcine) (Heparin -) 5,000 unit SQ BID [facility] Last Admin: 05/06/17 21:45 Dose: 5,000 unit Levofloxacin (Levaquin 500 Mg Premixed Ivpb -) 500 mg in 100 mls @ 100 mls/hr IVPB DAILY [facility] Last Admin: 05/06/17 12:12 Dose: 100 mls/hr Oseltamivir Phosphate (Tamiflu -) 75 mg PO BID [facility] Stop: 05/10/17 21:59 Last Admin: 05/06/17 21:47 Dose: 75 mg - Objective Vital Signs: Vital Signs Temperature 97.8 F 05/07/17 06:00 Pulse Rate 87 05/07/17 06:00 Respiratory Rate 20 05/07/17 06:00 Blood Pressure 146/89 05/07/17 06:00 O2 Sat by Pulse Oximetry (%) 98 05/06/17 22:00 Cardiovascular: Yes: Regular Rate and Rhythm Respiratory: Yes: On Nasal O2, Rhonchi Gastrointestinal: Yes: Normal Bowel Sounds, Soft Labs: CBC, BMP 05/07/17 06:25 05/07/17 06:25 INR, PTT INR 1.16 (0.82-1.09) H 05/05/17 13:05 Problem List - Problems (1) Influenza A Assessment/Plan: TAMIFLU ISOLATION Code(s): J10.1 - FLU DUE TO OTH IDENT INFLUENZA VIRUS W OTH RESP MANIFEST (2) Rhabdomyolysis Assessment/Plan: IVF MONITOR Code(s): M62.82 - RHABDOMYOLYSIS (3) Diverticulitis Assessment/Plan: IV LEVAQUIN ID CONSULT Code(s): K57.92 - DVTRCLI OF INTEST, PART UNSP, W/O PERF OR ABSCESS W/O BLEED
[2017-05-07] MEDS ORDERED: POTASSIUM CHLORIDE TABS 20 MEQ TABLET.ER (FP) PO ONE ×2 (09:47→13:45)
[2017-05-07] MEDS ORDERED: PT OWN MED DRAWER 7, Y5N ONE ×3 (09:55→21:10)
[2017-05-07] MEDS: OSELTAMIVIR PHOSPHATE 75 MG CAPSULE PO SCH ×2 (10:07→21:20)
[2017-05-07] MEDS: HEPARIN NA (PORCINE) 5,000 UNITS/ML 1ML VIAL SQ SCH ×2 (10:07→21:20)
[2017-05-07 10:58] LABS: PLATELET ESTIMATE ADEQUATE
[2017-05-08] MEDS: ALBUTEROL SO4 2.5/IPRATROPIUM 0.5 INH SOL 3 ML VIAL.NEB. NEB SCH ×4 (06:15→23:30)
--- NOTE | 2017-05-08 08:37 | PN ---
Progress Note, Physician History of Present Illness: c/o cough and congestion c/o pain elder the ribs after fall - Current Medication List Current Medications: Active Medications Albuterol/Ipratropium (Duoneb -) 1 amp NEB QIDR [facility] Last Admin: 05/08/17 06:15 Dose: 1 amp Heparin Sodium (Porcine) (Heparin -) 5,000 unit SQ BID [facility] Last Admin: 05/07/17 21:20 Dose: 5,000 unit Levofloxacin (Levaquin 500 Mg Premixed Ivpb -) 500 mg in 100 mls @ 100 mls/hr IVPB DAILY [facility] Last Admin: 05/07/17 10:01 Dose: 100 mls/hr Oseltamivir Phosphate (Tamiflu -) 75 mg PO BID [facility] Stop: 05/10/17 21:59 Last Admin: 05/07/17 21:20 Dose: 75 mg - Objective Vital Signs: Vital Signs Temperature 97.8 F 05/08/17 06:00 Pulse Rate 84 05/08/17 06:00 Respiratory Rate 20 05/08/17 06:00 Blood Pressure 131/76 05/08/17 06:00 O2 Sat by Pulse Oximetry (%) 94 L 05/07/17 22:00 Cardiovascular: Yes: Regular Rate and Rhythm Respiratory: Yes: Rhonchi, Wheezes Gastrointestinal: Yes: Normal Bowel Sounds, Soft Labs: CBC, BMP 05/07/17 06:25 05/07/17 06:25 INR, PTT INR 1.16 (0.82-1.09) H 05/05/17 13:05 Problem List - Problems (1) Influenza A Assessment/Plan: TAMIFLU ISOLATION Code(s): J10.1 - FLU DUE TO OTH IDENT INFLUENZA VIRUS W OTH RESP MANIFEST (2) Rhabdomyolysis Assessment/Plan: IVF MONITOR Code(s): M62.82 - RHABDOMYOLYSIS (3) Diverticulitis Assessment/Plan: IV LEVAQUIN ID CONSULT Code(s): K57.92 - DVTRCLI OF INTEST, PART UNSP, W/O PERF OR ABSCESS W/O BLEED (4) Acute bronchitis Assessment/Plan: CXR PULM CONSULT NEBS Code(s): J20.9 - ACUTE BRONCHITIS, UNSPECIFIED (5) Fall Assessment/Plan: LEFT RIB PAIN XRAYS TYLENOL Code(s): W19.XXXA - UNSPECIFIED FALL, INITIAL ENCOUNTER Assessment/Plan PT DOES NOT FEEL COMFORTABLE [facility] HOME FEELS UNSTEADY---PT--D/C PLANNING FOR SNF
[2017-05-08] MEDS ORDERED: ACETAMINOPHEN 325 MG TABLET (FP) PO PRN (08:38)
[2017-05-08] MEDS ORDERED: PT OWN MED DRAWER 7, Y5N ONE (09:12)
--- NOTE | 2017-05-08 09:12 | EKG ---
Test Reason : Blood Pressure : / mmHG Vent. Rate : 098 BPM Atrial Rate : 098 BPM P-R Int : 138 ms QRS Dur : 066 ms QT Int : 364 ms P-R-T Axes : -41 -08 036 degrees QTc Int : 464 ms UNUSUAL P AXIS, POSSIBLE ECTOPIC ATRIAL RHYTHM ABNORMAL ECG WHEN COMPARED WITH ECG OF 06-MAY-2017 09:07, ECTOPIC ATRIAL RHYTHM HAS REPLACED SINUS RHYTHM Confirmed by ADELINA CRUZ MD ([id number]) on 05/08/2017 9:12:24 AM Referred By: DIANNE HAWLEY Confirmed By:ADELINA CRUZ MD
--- NOTE | 2017-05-08 10:16 | CONSULT ---
Consultation: REQUESTING PROVIDER: CONSULT REQUEST: We have been asked to medically evaluate this patient for cough. HISTORY OF PRESENT ILLNESS: 76F w/ hx of diverticulitis who presented with syncope. Per patient, she was lightheaded and febrile for 2-3 days before falling down on her left side and losing consciousness. In the hospital, pt was found to be febrile, hypoxic, influenza A positive, and to have evidence of rhabdomyolysis. Pt has also been complaining of a cough. She states that it started one week ago, is intermittent , productive of yellow sputum, not associated with pleuritic chest pain, and she has difficulty coughing out the sputum. She denies SOB and wheezing. She denies ever having a cough as significant as this before. She denies any pulmonary problems before. Pt was recently discharged from [facility] for diverticulitis several days ago, and has been on antibiotics. PMH: diverticulitis PSH: none Meds: levaquin, flagyl Allergies: NKDA Social Hx: denies tobacco, alcohol, and drug use. She lives at home alone. She is a retired sewing ironing worker. Family hx: denies REVIEW OF SYSTEMS: CONSTITUTIONAL: Absent: chills, diaphoresis, generalized weakness, malaise, loss of appetite, weight change present: fever HEENT: Absent: rhinorrhea, nasal congestion, throat pain, throat swelling, difficulty swallowing, mouth swelling, ear pain, eye pain, visual changes CARDIOVASCULAR: Absent: chest pain, syncope, palpitations, irregular heart rate, peripheral edema present: lightheadedness RESPIRATORY: Absent: shortness of breath, dyspnea with exertion, orthopnea, wheezing, stridor , hemoptysis present: cough GASTROINTESTINAL: Absent: abdominal distension, nausea, vomiting, diarrhea, constipation, melena, hematochezia present: abdominal pain GENITOURINARY: Absent: dysuria, frequency, urgency, hesitancy, hematuria, flank pain, genital pain MUSCULOSKELETAL: Absent: myalgia, arthralgia, joint swelling, back pain, neck pain present: rib pain SKIN: Absent: rash, itching, pallor HEMATOLOGIC/IMMUNOLOGIC: Absent: easy bleeding, easy bruising, lymphadenopathy, frequent infections ENDOCRINE: Absent: unexplained weight gain, unexplained weight loss, heat intolerance, cold intolerance NEUROLOGIC: Absent: headache, focal weakness or paresthesias, unsteady gait, seizure, mental status changes, bladder or bowel incontinence PSYCHIATRIC: Absent: anxiety, depression, suicidal or homicidal ideation, hallucinations. PHYSICAL EXAMINATION Vital Signs - 24 hr 05/07/17 05/07/17 05/07/17 11:14 14:33 18:00 Temperature 97.9 F 98.6 F Pulse Rate 98 H 98 H 93 H Respiratory 18 18 Rate Blood Pressure 104/64 123/75 O2 Sat by Pulse 96 95 Oximetry (%) 05/07/17 05/07/17 05/08/17 20:34 22:00 02:00 Temperature 98.2 F 97.8 F Pulse Rate 103 H 91 H Respiratory 18 18 20 Rate Blood Pressure 133/76 126/80 O2 Sat by Pulse 94 L 94 L Oximetry (%) 05/08/17 06:00 Temperature 97.8 F Pulse Rate 84 Respiratory 20 Rate Blood Pressure 131/76 O2 Sat by Pulse Oximetry (%) GENERAL: elderly female, awake, alert, and fully oriented, in no acute distress. HEENT: NC, AT, EOMI NECK: Normal range of motion, supple without lymphadenopathy, JVD, or masses. LUNGS: CTAB, no wheezing, no rales, no rhonchi HEART: Regular rate and rhythm, normal S1 and S2 without murmur, rub or gallop. ABDOMEN: Soft, nontender, not distended, normoactive bowel sounds, no guarding, no rebound, no masses. No hepatomegaly or splenomegaly. MUSCULOSKELETAL: No LE edema NEUROLOGICAL: Cranial nerves II-XII intact. Normal speech. PSYCHIATRIC: Cooperative. Good eye contact. Appropriate mood and affect. SKIN: Warm, dry, normal turgor, no rashes or lesions noted. Laboratory Results - last 24 hr 05/07/17 06:25 Total Counted 100 Neutrophils % (Manual) 11.0 L Lymphocytes % (Manual) 72.0 H Monocytes % (Manual) 13 H Eosinophils % (Manual) 3.0 Metamyelocytes 1 Platelet Estimate Adequate Active Medications Generic Name Dose Route Start Last Admin Trade Name Freq PRN Reason Stop Dose Admin Acetaminophen 650 mg 05/08/17 08:38 Tylenol - PO Q6H PRN FEVER OR PAIN Albuterol/Ipratropium 1 amp 05/06/17 12:00 05/08/17 06:15 Duoneb - NEB 1 amp QIDR [facility] Administration Heparin Sodium (Porcine) 5,000 unit 05/05/17 22:00 05/07/17 21:20 Heparin - SQ 5,000 unit BID [facility] Administration Levofloxacin 500 mg in 100 mls @ 100 mls/hr 05/06/17 10:45 05/07/17 10:01 Levaquin 500 Mg Premixed Ivpb - IVPB 100 mls/hr DAILY [facility] Administration Oseltamivir Phosphate 75 mg 05/05/17 22:00 05/07/17 21:20 Tamiflu - PO 05/10/17 21:59 75 mg BID [facility] Administration CXR: no acute pathology Rib XR: no acute fractures ASSESSMENT/PLAN: 76F w/ hx of diverticulitis who presented with syncope, found to have influenza A. #cough -acute symptom of influenza. does not appear to have any superimposed PNA at this point. -duonebs -guaifenesin -O2 via NC -tamiflu -incentive spirometry -abx per ID Rest of care per medical team. Case to be discussed with attending, Dr. Srinivasan. Dispo: We will continue to follow the patient. Thank you for this consultative opportunity. -Justin Ordonez MD PGY1 Pulmonology Team Visit type - Emergency Visit Emergency Visit: Yes ED Registration Date: 05/08/17 Care time: The patient presented to the Emergency Department on the above date and was hospitalized for further evaluation of their emergent condition. - New Patient This patient is new to me today: Yes Date on this admission: 05/08/17 - Critical Care Critical Care patient: No
[2017-05-08] MEDS: HEPARIN NA (PORCINE) 5,000 UNITS/ML 1ML VIAL SQ SCH ×2 (10:24→21:39)
[2017-05-08] MEDS: OSELTAMIVIR PHOSPHATE 75 MG CAPSULE PO SCH ×2 (10:25→21:57)
[2017-05-08 11:34] LABS: BASO % 1.3 % (0-2.0); EOS % 2.2 % (0-4.5); HEMATOCRIT 38.5 % (32.4-45.2); HEMOGLOBIN 12.5 GM/dL (10.7-15.3); MCH 28.7 pg (25.7-33.7); MCHC 32.6 g/dl (32.0-36.0); MEAN CELL VOLUME 88.2 fl (80-96); MEAN PLT VOLUME 7.3 fl (7.5-11.1); MONO % 12.4 % (3.8-10.2); NEUT % 33.1 % (42.8-82.8); PLATELET COUNT 275 K/MM3 (134-434); RBC 4.36 M/mm3 (3.60-5.2); RDW 14.2 % (11.6-15.6); WHITE BLOOD COUNT 2.5 K/mm3 (4.0-10.0)
[2017-05-08 11:52] LABS: ANION GAP 8 (8-16); BILIRUBIN,TOTAL 0.2 mg/dL (0.2-1.0); BLOOD UREA NITROGEN 15 mg/dL (7-18); CALCIUM 8.3 mg/dL (8.5-10.1); CHLORIDE 107 mmol/L (98-107); CO2 25 mmol/L (21-32); CREATININE 0.8 mg/dL (0.55-1.02); GLUCOSE,RANDOM 120 mg/dL (74-106); POTASSIUM 3.9 mmol/L (3.5-5.1); SGOT/AST 35 U/L (15-37); SGPT/ALT 32 U/L (12-78); SODIUM 140 mmol/L (136-145)
[2017-05-08 11:53] LABS: ALK PHOS 49 U/L (45-117)
--- NOTE | 2017-05-08 13:08 | PN ---
Teaching Attending Note Name of Resident: Justin Ordonez ATTENDING PHYSICIAN STATEMENT I saw and evaluated the patient. I reviewed the resident's note and discussed the case with the resident. I agree with the resident's findings and plan as documented. SUBJECTIVE:cough/wheeze OBJECTIVE:bilateral diffuse exp wheeze anterior/posterior ASSESSMENT AND PLAN: treatment for influ A underway felicia jackson/added short course nael MARIE MD
[2017-05-08] MEDS: methylPREDNISolone NA SUCC 40 MG/1 ML VIAL IVPUSH SCH ×2 (14:15→21:39)
[2017-05-09] MEDS: methylPREDNISolone NA SUCC 40 MG/1 ML VIAL IVPUSH SCH ×3 (02:19→22:09)
--- NOTE | 2017-05-09 03:07 | PN ---
Progress Note, Physician Chief Complaint: Pt A&Ox3; feels better (less congested and short of breath). - Current Medication List Current Medications: Active Medications Acetaminophen (Tylenol -) 650 mg PO Q6H PRN PRN Reason: FEVER OR PAIN Albuterol/Ipratropium (Duoneb -) 1 amp NEB QIDR [facility] Last Admin: 05/08/17 23:30 Dose: 1 amp Heparin Sodium (Porcine) (Heparin -) 5,000 unit SQ BID [facility] Last Admin: 05/08/17 21:39 Dose: 5,000 unit Levofloxacin (Levaquin 500 Mg Premixed Ivpb -) 500 mg in 100 mls @ 100 mls/hr IVPB DAILY [facility] Last Admin: 05/08/17 10:25 Dose: 100 mls/hr Methylprednisolone Sodium Succinate (Solu-Medrol -) 40 mg IVPUSH Q8H-IV [facility] Last Admin: 05/09/17 02:19 Dose: 40 mg Oseltamivir Phosphate (Tamiflu -) 75 mg PO BID [facility] Stop: 05/10/17 21:59 Last Admin: 05/08/17 21:57 Dose: 75 mg - Objective Vital Signs: Vital Signs Temperature 97.9 F 05/09/17 02:00 Pulse Rate 96 H 05/09/17 02:00 Respiratory Rate 20 05/09/17 02:00 Blood Pressure 136/74 05/09/17 02:00 O2 Sat by Pulse Oximetry (%) 95 05/08/17 20:00 Labs: CBC, BMP 05/08/17 11:23 05/08/17 11:23 INR, PTT INR 1.16 (0.82-1.09) H 05/05/17 13:05 Problem List - Problems (1) Acute bronchitis Code(s): J20.9 - ACUTE BRONCHITIS, UNSPECIFIED (2) Influenza A Assessment/Plan: On Tamiflu; f/u with ID. Code(s): J10.1 - FLU DUE TO OTH IDENT INFLUENZA VIRUS W OTH RESP MANIFEST (3) Rhabdomyolysis Assessment/Plan: no significant rise in CKMB or TNI. Hydration; f/u BUN/Cr, electrolytes (K repleted; f/u Mg as well); Is and Os. Code(s): M62.82 - RHABDOMYOLYSIS (4) Syncope Assessment/Plan: telemetry: NSR ECHO: normal LVEF; abnormal diastolic compliance. EKG: ?ectopic atrial rhythm; repeat study. F/u carotid artery US. Maintain hydration. Orthostatic VS. Coronary artery evaluation (stress test) when stable. Code(s): R55 - SYNCOPE AND COLLAPSE (5) Obesity (BMI 30-39.9) Assessment/Plan: F/u TSH and lipids. Diet modification. Code(s): E66.9 - OBESITY, UNSPECIFIED (6) Diverticulitis Assessment/Plan: recent admission for diverticulitis. Code(s): K57.92 - DVTRCLI OF INTEST, PART UNSP, W/O PERF OR ABSCESS W/O BLEED
[2017-05-09] MEDS: ALBUTEROL SO4 2.5/IPRATROPIUM 0.5 INH SOL 3 ML VIAL.NEB. NEB SCH ×4 (07:10→23:30)
[2017-05-09] MEDS: HEPARIN NA (PORCINE) 5,000 UNITS/ML 1ML VIAL SQ SCH ×2 (09:29→22:09)
[2017-05-09] MEDS: OSELTAMIVIR PHOSPHATE 75 MG CAPSULE PO SCH ×2 (09:30→22:09)
--- NOTE | 2017-05-09 10:08 | PN ---
Progress Note, Physician History of Present Illness: seen and examined today in [facility]. no overnight events. no new complaints. - Current Medication List Current Medications: Active Medications Acetaminophen (Tylenol -) 650 mg PO Q6H PRN PRN Reason: FEVER OR PAIN Albuterol/Ipratropium (Duoneb -) 1 amp NEB QIDR [facility] Last Admin: 05/09/17 07:10 Dose: 1 amp Heparin Sodium (Porcine) (Heparin -) 5,000 unit SQ BID [facility] Last Admin: 05/09/17 09:29 Dose: 5,000 unit Levofloxacin (Levaquin 500 Mg Premixed Ivpb -) 500 mg in 100 mls @ 100 mls/hr IVPB DAILY [facility] Last Admin: 05/09/17 09:29 Dose: 100 mls/hr Methylprednisolone Sodium Succinate (Solu-Medrol -) 40 mg IVPUSH Q8H-IV [facility] Last Admin: 05/09/17 09:29 Dose: 40 mg Oseltamivir Phosphate (Tamiflu -) 75 mg PO BID [facility] Stop: 05/10/17 21:59 Last Admin: 05/09/17 09:30 Dose: 75 mg - Objective Vital Signs: Vital Signs Temperature 97.9 F 05/09/17 06:00 Pulse Rate 88 05/09/17 06:00 Respiratory Rate 20 05/09/17 06:00 Blood Pressure 139/82 05/09/17 06:00 O2 Sat by Pulse Oximetry (%) 95 05/09/17 04:00 Constitutional: Yes: No Distress, Calm Eyes: Yes: Conjunctiva Clear, EOM Intact, PERRL HENT: Yes: Atraumatic, Normocephalic Neck: Yes: Supple, Trachea Midline Cardiovascular: Yes: Regular Rate and Rhythm, S1, S2. No: Bradycardia, Tachycardia, Pulse Irregular, Bruit, JVD, Gallop, Murmur, Rub, S3, S4, Varicosities Respiratory: Yes: Regular, CTA Bilaterally. No: Rales, Rhonchi, Wheezes Gastrointestinal: Yes: Normal Bowel Sounds, Soft. No: Distention, Tenderness Musculoskeletal: Yes: WNL Extremities: Yes: WNL Edema: No Peripheral Pulses WNL: Yes Peripheral Pulses: Left Doralis Pedis: 2+, Right Dorsalis Pedis: 2+ Integumentary: Yes: WNL Neurological: Yes: Alert, Oriented Psychiatric: Yes: Alert, Oriented Labs: CBC, BMP 05/08/17 11:23 05/08/17 11:23 INR, PTT INR 1.16 (0.82-1.09) H 05/05/17 13:05 - ....Imaging Chest X-ray: Report Reviewed, Image Reviewed EKG: Report Reviewed, Image Reviewed Other: Report Reviewed, Image Reviewed (tele-nsr, sinus tach, brief PSVT) Assessment/Plan Syncope in setting of Influenza-likely related to viral illness -receiving tamiflu and steroids telemetry: NSR, brief psvt ECHO: normal LVEF; abnormal diastolic compliance. F/u carotid artery US. Maintain hydration. monitor Orthostatic Coronary artery evaluation (stress test) when stable. Arrhythmia-brief PSVT, self limted and asymptomatic -observe for now, does not require medical therapy at this time
--- NOTE | 2017-05-09 11:48 | PN ---
Progress Note, Physician History of Present Illness: c/o cough and congestion c/o pain elder the ribs after fall - Current Medication List Current Medications: Active Medications Acetaminophen (Tylenol -) 650 mg PO Q6H PRN PRN Reason: FEVER OR PAIN Albuterol/Ipratropium (Duoneb -) 1 amp NEB QIDR [facility] Last Admin: 05/09/17 07:10 Dose: 1 amp Heparin Sodium (Porcine) (Heparin -) 5,000 unit SQ BID [facility] Last Admin: 05/09/17 09:29 Dose: 5,000 unit Levofloxacin (Levaquin 500 Mg Premixed Ivpb -) 500 mg in 100 mls @ 100 mls/hr IVPB DAILY [facility] Last Admin: 05/09/17 09:29 Dose: 100 mls/hr Methylprednisolone Sodium Succinate (Solu-Medrol -) 40 mg IVPUSH Q8H-IV [facility] Last Admin: 05/09/17 09:29 Dose: 40 mg Oseltamivir Phosphate (Tamiflu -) 75 mg PO BID [facility] Stop: 05/10/17 21:59 Last Admin: 05/09/17 09:30 Dose: 75 mg - Objective Vital Signs: Vital Signs Temperature 98.1 F 05/09/17 10:00 Pulse Rate 86 05/09/17 10:00 Respiratory Rate 20 05/09/17 10:00 Blood Pressure 136/78 05/09/17 10:00 O2 Sat by Pulse Oximetry (%) 95 05/09/17 04:00 Cardiovascular: Yes: Regular Rate and Rhythm Respiratory: Yes: Regular, Rhonchi. No: Wheezes Labs: CBC, BMP 05/08/17 11:23 05/08/17 11:23 INR, PTT INR 1.16 (0.82-1.09) H 05/05/17 13:05 Problem List - Problems (1) Influenza A Assessment/Plan: TAMIFLU ISOLATION Code(s): J10.1 - FLU DUE TO OTH IDENT INFLUENZA VIRUS W OTH RESP MANIFEST (2) Rhabdomyolysis Assessment/Plan: IVF MONITOR Code(s): M62.82 - RHABDOMYOLYSIS (3) Diverticulitis Assessment/Plan: IV LEVAQUIN ID CONSULT Code(s): K57.92 - DVTRCLI OF INTEST, PART UNSP, W/O PERF OR ABSCESS W/O BLEED (4) Acute bronchitis Assessment/Plan: CXR PULM CONSULT NOTED ON IV STEROIDS NEBS Code(s): J20.9 - ACUTE BRONCHITIS, UNSPECIFIED (5) Fall Assessment/Plan: LEFT RIB PAIN XRAYS NOTED TYLENOL REFUSES SNF-- Code(s): W19.XXXA - UNSPECIFIED FALL, INITIAL ENCOUNTER
--- NOTE | 2017-05-09 11:59 | PN ---
Progress Note (short form) - Note Progress Note: PULMONARY DAY #5 TAMIFLU VSS/AFEBRILE APPEARS STABLE ANICTERIC CLEAR BILATERAL S1S2 BS+ NO EDEMA LABS/MEDS/MICRO REVIEWED INFLU A ON TAMIFLU DAY #5 NO INFILTRATE ON CXR WILL STOP THE STEROIDS NO OBJECTION TO CONTINUING TREATMENT AN OUTPATIENT. Jayne MARIE MD
[2017-05-09 12:20] LABS: BASO % 0.1 % (0-2.0); HEMOGLOBIN 12.7 GM/dL (10.7-15.3); LYMPH % 18.6 % (8-40); MCH 29.1 pg (25.7-33.7); MCHC 33.3 g/dl (32.0-36.0); MEAN CELL VOLUME 87.2 fl (80-96); MEAN PLT VOLUME 7.6 fl (7.5-11.1); MONO % 4.8 % (3.8-10.2); NEUT % 76.5 % (42.8-82.8); PLATELET COUNT 310 K/MM3 (134-434); RBC 4.36 M/mm3 (3.60-5.2); RDW 14.1 % (11.6-15.6); WHITE BLOOD COUNT 3.7 K/mm3 (4.0-10.0)
[2017-05-09 12:32] LABS: CHOLESTEROL 143 mg/dL (50-200); TRIGLYCERIDES 133 mg/dL (35-160)
[2017-05-09 12:34] LABS: HDL CHOLESTEROL 27 mg/dL (40-60); LDL CHOLESTEROL (ONLY SJRH) 103 mg/dL (5-100)
[2017-05-09] MEDS ORDERED: PT OWN MED DRAWER 7, Y5N ONE (22:03)
[2017-05-10] MEDS: ALBUTEROL SO4 2.5/IPRATROPIUM 0.5 INH SOL 3 ML VIAL.NEB. NEB SCH ×4 (07:10→21:50)
[2017-05-10] MEDS ORDERED: PT OWN MED DRAWER 7, Y5N ONE (08:59)
[2017-05-10] MEDS: HEPARIN NA (PORCINE) 5,000 UNITS/ML 1ML VIAL SQ SCH ×2 (09:39→21:32)
[2017-05-10] MEDS: OSELTAMIVIR PHOSPHATE 75 MG CAPSULE PO SCH (09:40)
[2017-05-10] MEDS: methylPREDNISolone NA SUCC 40 MG/1 ML VIAL IVPUSH SCH (09:40)
--- NOTE | 2017-05-10 10:18 | PN ---
Progress Note, Physician History of Present Illness: seen and examined today in [facility]. feeling better. no overnight events. no new complaints. - Current Medication List Current Medications: Active Medications Acetaminophen (Tylenol -) 650 mg PO Q6H PRN PRN Reason: FEVER OR PAIN Albuterol/Ipratropium (Duoneb -) 1 amp NEB QIDR [facility] Last Admin: 05/10/17 07:10 Dose: Not Given Heparin Sodium (Porcine) (Heparin -) 5,000 unit SQ BID [facility] Last Admin: 05/10/17 09:39 Dose: 5,000 unit Levofloxacin (Levaquin 500 Mg Premixed Ivpb -) 500 mg in 100 mls @ 100 mls/hr IVPB DAILY [facility] Last Admin: 05/10/17 09:40 Dose: 100 mls/hr Methylprednisolone Sodium Succinate (Solu-Medrol -) 40 mg IVPUSH BID [facility] Last Admin: 05/10/17 09:40 Dose: 40 mg Oseltamivir Phosphate (Tamiflu -) 75 mg PO BID [facility] Stop: 05/10/17 21:59 Last Admin: 05/10/17 09:40 Dose: 75 mg - Objective Vital Signs: Vital Signs Temperature 97.7 F 05/10/17 06:00 Pulse Rate 89 05/10/17 06:00 Respiratory Rate 18 05/10/17 06:00 Blood Pressure 144/83 05/10/17 06:00 O2 Sat by Pulse Oximetry (%) 92 L 05/09/17 23:02 Constitutional: Yes: No Distress, Calm Eyes: Yes: Conjunctiva Clear, EOM Intact, PERRL HENT: Yes: Atraumatic, Normocephalic Neck: Yes: Supple, Trachea Midline Cardiovascular: Yes: Regular Rate and Rhythm, S1, S2. No: Bradycardia, Tachycardia, Pulse Irregular, Bruit, JVD, Gallop, Murmur, Rub, S3, S4, Varicosities Respiratory: Yes: Regular, CTA Bilaterally. No: Rales, Rhonchi, Wheezes Gastrointestinal: Yes: Normal Bowel Sounds, Soft. No: Distention, Tenderness Musculoskeletal: Yes: WNL Extremities: Yes: WNL Edema: No Peripheral Pulses WNL: Yes Peripheral Pulses: Left Doralis Pedis: 2+, Right Dorsalis Pedis: 2+ Integumentary: Yes: WNL Neurological: Yes: Alert, Oriented Psychiatric: Yes: Alert, Oriented Labs: CBC, BMP 05/09/17 11:05 05/08/17 11:23 INR, PTT INR 1.16 (0.82-1.09) H 05/05/17 13:05 - ....Imaging Chest X-ray: Report Reviewed, Image Reviewed EKG: Report Reviewed, Image Reviewed Other: Report Reviewed, Image Reviewed (tele-nsr, sinus tach, sinus arrhythmia, no sig arrhythmias) Assessment/Plan Syncope in setting of Influenza-likely related to viral illness -receiving tamiflu and steroids and Abx telemetry: NSR, brief psvt but none in last 24 hours ECHO: normal LVEF; abnormal diastolic compliance. F/u carotid artery US. Maintain hydration. monitor Orthostatic bp Coronary artery evaluation (stress test) when stable. Arrhythmia-brief PSVT, self limted and asymptomatic -none further on tele last 24 hours -observe for now, does not require medical therapy at this time
--- NOTE | 2017-05-10 13:11 | PN ---
Progress Note (short form) - Note Progress Note: PULMONARY DAY #6 TAMIFLU day #5 LEVAQUIN VSS/AFEBRILE APPEARS STABLE ANICTERIC CLEAR BILATERAL S1S2 BS+ NO EDEMA LABS/MEDS/MICRO REVIEWED INFLU A ON TAMIFLU DAY #6 NO INFILTRATE ON CXR WILL STOP THE STEROIDS NO OBJECTION TO CONTINUING TREATMENT AN OUTPATIENT. Jayne MARIE MD
--- NOTE | 2017-05-10 13:18 | DS ---
Physical Examination Vital Signs: Vital Signs Temperature 98.1 F 05/10/17 10:00 Pulse Rate 92 H 05/10/17 12:35 Respiratory Rate 18 05/10/17 10:00 Blood Pressure 154/100 05/10/17 10:00 O2 Sat by Pulse Oximetry (%) 95 05/10/17 12:35 Cardiovascular: Yes: Regular Rate and Rhythm Respiratory: Yes: Regular, CTA Bilaterally Gastrointestinal: Yes: Normal Bowel Sounds, Soft Labs: CBC, BMP 05/09/17 11:05 05/08/17 11:23 Discharge Summary Reason For Visit: SYNCOPE; FLU A POSITIVE Current Active Problems Acute bronchitis (Acute) Fall (Acute) Influenza A (Acute) Rhabdomyolysis (Acute) Syncope (Acute) Hospital Course: 76 y/o female s/p syncope episode last night after feeling dizzy and feverish. Patient was recently discharged from [facility] secondary diverticulitis a few days ago and states has been taking the antibiotics as prescribed. Patient states last night was walking when she had felt dizzy causing her to fall sideways landing on her left side. Patient states she remembers waking up on the floor and required use of furniture to get up and went to bed. Patient states this morning when her son knocked on the door and she told him of the incident , he decided to bring patient to the ER. Patient currently denies chest pain, shortness of breath but does complain of left rib pain and left abdominal pain. Patient currently complaining of generalized fatigue and fever - Past Medical History Cardiovascular: No: HTN, Hyperlipdemia Pulmonary: No: COPD Gastrointestinal: Yes: Diverticulitis Endocrine: No: Diabetes Mellitus - Problems (1) Influenza A Assessment/Plan: TAMIFLU COMPLETED ISOLATION Code(s): J10.1 - FLU DUE TO OTH IDENT INFLUENZA VIRUS W OTH RESP MANIFEST (2) Rhabdomyolysis Assessment/Plan: OFF IVF RESOLVD Code(s): M62.82 - RHABDOMYOLYSIS (3) Diverticulitis Assessment/Plan: DC LEVAQUIN ID CONSULT GI OUTPATIENT Code(s): K57.92 - DVTRCLI OF INTEST, PART UNSP, W/O PERF OR ABSCESS W/O BLEED (4) Acute bronchitis Assessment/Plan: CXR PULM CONSULT NOTED OFF IV STEROIDS NEBS Code(s): J20.9 - ACUTE BRONCHITIS, UNSPECIFIED (5) Fall Assessment/Plan: LEFT RIB PAIN XRAYS NOTED TYLENOL REFUSES SNF-- Code(s): W19.XXXA - UNSPECIFIED FALL, INITIAL ENCOUNTER Condition: Improved - Instructions Referrals: Andres Moran [Primary Care Provider] - Disposition: HOME - Home Medications Comprehensive Discharge Medication List: Ambulatory Orders Levofloxacin [Levaquin] 500 mg PO DAILY 05/05/17 Metronidazole [Flagyl -] 500 mg PO TIDCM 05/05/17
[2017-05-11] MEDS: ALBUTEROL SO4 2.5/IPRATROPIUM 0.5 INH SOL 3 ML VIAL.NEB. NEB SCH ×3 (06:50→17:14)
--- NOTE | 2017-05-11 07:51 | DS ---
Physical Examination Vital Signs: Vital Signs Temperature 98.2 F 05/11/17 06:00 Pulse Rate 72 05/11/17 06:00 Respiratory Rate 20 05/11/17 06:00 Blood Pressure 140/78 05/11/17 06:00 O2 Sat by Pulse Oximetry (%) 96 05/10/17 21:00 Findings/Remarks: feels better wants pt in hospital --refuses snf Cardiovascular: Yes: Regular Rate and Rhythm Respiratory: Yes: Regular, CTA Bilaterally Gastrointestinal: Yes: Normal Bowel Sounds, Soft Labs: CBC, BMP 05/09/17 11:05 05/08/17 11:23 Discharge Summary Reason For Visit: SYNCOPE; FLU A POSITIVE Current Active Problems Acute bronchitis (Acute) Fall (Acute) Influenza A (Acute) Rhabdomyolysis (Acute) Syncope (Acute) Hospital Course: 76 y/o female s/p syncope episode last night after feeling dizzy and feverish. Patient was recently discharged from [facility] secondary diverticulitis a few days ago and states has been taking the antibiotics as prescribed. Patient states last night was walking when she had felt dizzy causing her to fall sideways landing on her left side. Patient states she remembers waking up on the floor and required use of furniture to get up and went to bed. Patient states this morning when her son knocked on the door and she told him of the incident , he decided to bring patient to the ER. Patient currently denies chest pain, shortness of breath but does complain of left rib pain and left abdominal pain. Patient currently complaining of generalized fatigue and fever - Past Medical History Cardiovascular: No: HTN, Hyperlipdemia Pulmonary: No: COPD Gastrointestinal: Yes: Diverticulitis Endocrine: No: Diabetes Mellitus - Problems (1) Influenza A Assessment/Plan: TAMIFLU COMPLETED DC ISOLATION Code(s): J10.1 - FLU DUE TO OTH IDENT INFLUENZA VIRUS W OTH RESP MANIFEST (2) Rhabdomyolysis Assessment/Plan: OFF IVF RESOLVED Code(s): M62.82 - RHABDOMYOLYSIS (3) Diverticulitis Assessment/Plan: DC LEVAQUIN ID CONSULT NOTED GI OUTPATIENT--PT UNDERSTANDS Code(s): K57.92 - DVTRCLI OF INTEST, PART UNSP, W/O PERF OR ABSCESS W/O BLEED (4) Acute bronchitis Assessment/Plan: CXR PULM CONSULT NOTED OFF IV STEROIDS NEBS Code(s): J20.9 - ACUTE BRONCHITIS, UNSPECIFIED (5) Fall Assessment/Plan: LEFT RIB PAIN XRAYS NOTED TYLENOL REFUSES SNF-- Code(s): W19.XXXA - UNSPECIFIED FALL, INITIAL ENCOUNTER Condition: Improved - Instructions Referrals: Andres Moran [Primary Care Provider] - Disposition: VNS/HOME HEALTH CARE - Home Medications Comprehensive Discharge Medication List: Ambulatory Orders Levofloxacin [Levaquin] 500 mg PO DAILY 05/05/17 Metronidazole [Flagyl -] 500 mg PO TIDCM 05/05/17
[2017-05-11] MEDS: HEPARIN NA (PORCINE) 5,000 UNITS/ML 1ML VIAL SQ SCH ×3 (10:13→21:58)
--- NOTE | 2017-05-11 13:03 | PN ---
Progress Note, Physician History of Present Illness: 76 y/o female s/p syncope episode last night after feeling dizzy and feverish. Patient was recently discharged from [facility] secondary diverticulitis a few days ago and states has been taking the antibiotics as prescribed. Patient states last night was walking when she had felt dizzy causing her to fall sideways landing on her left side. Patient states she remembers waking up on the floor and required use of furniture to get up and went to bed. Patient states this morning when her son knocked on the door and she told him of the incident , he decided to bring patient to the ER. Patient currently denies chest pain, shortness of breath but does complain of left rib pain and left abdominal pain. Patient currently complaining of generalized fatigue and fever - Current Medication List Current Medications: Active Medications Acetaminophen (Tylenol -) 650 mg PO Q6H PRN PRN Reason: FEVER OR PAIN Albuterol/Ipratropium (Duoneb -) 1 amp NEB QIDR [facility] Last Admin: 05/11/17 11:03 Dose: Not Given Heparin Sodium (Porcine) (Heparin -) 5,000 unit SQ BID [facility] Last Admin: 05/11/17 10:13 Dose: 5,000 unit - Objective Vital Signs: Vital Signs Temperature 98.2 F 05/11/17 06:00 Pulse Rate 72 05/11/17 06:00 Respiratory Rate 20 05/11/17 06:00 Blood Pressure 140/78 05/11/17 06:00 O2 Sat by Pulse Oximetry (%) 96 05/10/17 21:00 Eyes: Yes: WNL, Conjunctiva Clear, EOM Intact HENT: Yes: WNL, Atraumatic, Normocephalic Neck: Yes: WNL, Supple, Trachea Midline Cardiovascular: Yes: WNL, Regular Rate and Rhythm Respiratory: Yes: WNL, Regular, CTA Bilaterally Gastrointestinal: Yes: WNL, Normal Bowel Sounds Genitourinary: Yes: WNL Musculoskeletal: Yes: WNL Extremities: Yes: WNL Edema: No Integumentary: Yes: WNL Neurological: Yes: WNL, Alert, Oriented ...Motor Strength: WNL Psychiatric: Yes: WNL Labs: CBC, BMP 05/09/17 11:05 05/08/17 11:23 INR, PTT INR 1.16 (0.82-1.09) H 05/05/17 13:05 Problem List - Problems (1) Influenza A Code(s): J10.1 - FLU DUE TO OTH IDENT INFLUENZA VIRUS W OTH RESP MANIFEST (2) Rhabdomyolysis Code(s): M62.82 - RHABDOMYOLYSIS (3) Syncope Code(s): R55 - SYNCOPE AND COLLAPSE (4) Abnormal computed tomography of gastrointestinal tract Code(s): R93.3 - ABNORMAL FINDINGS ON DX IMAGING OF PRT DIGESTIVE TRACT (5) Constipation Code(s): K59.00 - CONSTIPATION, UNSPECIFIED (6) Diverticulitis Code(s): K57.92 - DVTRCLI OF INTEST, PART UNSP, W/O PERF OR ABSCESS W/O BLEED (7) Fluid in endometrial cavity Code(s): N85.9 - NONINFLAMMATORY DISORDER OF UTERUS, UNSPECIFIED (8) Obesity (BMI 30-39.9) Code(s): E66.9 - OBESITY, UNSPECIFIED (9) Thickened endometrium Code(s): R93.8 - ABNORMAL FINDINGS ON DIAGNOSTIC IMAGING OF BODY STRUCTURES Assessment/Plan s/p fall ? syncope Fever influenza s/p diverticulitis Plan ekg echo persantine mibi st in am
[2017-05-12] MEDS: ALBUTEROL SO4 2.5/IPRATROPIUM 0.5 INH SOL 3 ML VIAL.NEB. NEB SCH ×4 (00:22→18:04)
--- NOTE | 2017-05-12 08:23 | PN ---
Progress Note, Physician History of Present Illness: c/o cough and congestion c/o pain elder the ribs after fall - Current Medication List Current Medications: Active Medications Acetaminophen (Tylenol -) 650 mg PO Q6H PRN PRN Reason: FEVER OR PAIN Albuterol/Ipratropium (Duoneb -) 1 amp NEB QIDR [facility] Last Admin: 05/12/17 06:49 Dose: Not Given Heparin Sodium (Porcine) (Heparin -) 5,000 unit SQ BID [facility] Last Admin: 05/11/17 21:58 Dose: Not Given - Objective Vital Signs: Vital Signs Temperature 97.8 F 05/12/17 08:08 Pulse Rate 87 05/12/17 08:08 Respiratory Rate 18 05/12/17 08:08 Blood Pressure 149/76 05/12/17 08:08 O2 Sat by Pulse Oximetry (%) 96 05/11/17 21:00 Cardiovascular: Yes: Regular Rate and Rhythm Respiratory: Yes: Regular, CTA Bilaterally Gastrointestinal: Yes: Normal Bowel Sounds, Soft Labs: CBC, BMP 05/09/17 11:05 05/08/17 11:23 INR, PTT INR 1.16 (0.82-1.09) H 05/05/17 13:05 Problem List - Problems (1) Influenza A Assessment/Plan: TAMIFLU COMPLETED DC ISOLATION Code(s): J10.1 - FLU DUE TO OTH IDENT INFLUENZA VIRUS W OTH RESP MANIFEST (2) Rhabdomyolysis Assessment/Plan: OFF IVF Laboratory Tests 05/06/17 05/07/17 09:15 06:25 Creatine Kinase 1739 H 991 H IMPROVED Code(s): M62.82 - RHABDOMYOLYSIS (3) Diverticulitis Assessment/Plan: OFF LEVAQUIN ID CONSULT NOTED GI CONSULT OUTPATIENT--PT UNDERSTANDS Code(s): K57.92 - DVTRCLI OF INTEST, PART UNSP, W/O PERF OR ABSCESS W/O BLEED (4) Acute bronchitis Assessment/Plan: CXR NOTED PULM CONSULT NOTED OFF IV STEROIDS NEBS Code(s): J20.9 - ACUTE BRONCHITIS, UNSPECIFIED (5) Fall Assessment/Plan: LEFT RIB PAIN XRAYS NOTED TYLENOL REFUSES SNF-- Code(s): W19.XXXA - UNSPECIFIED FALL, INITIAL ENCOUNTER Assessment/Plan AWAIT STRESS TEST
[2017-05-12] MEDS: HEPARIN NA (PORCINE) 5,000 UNITS/ML 1ML VIAL SQ SCH (10:00)
[2017-05-12 19:26] VITALS: BP 131/71; PULSE 81; TEMP 98.2
== END 2017-05-12 17:00 | disposition home health service (06) | DRG 194 ==
LOC: JER 11:41 → JERBED 17:10 → J4S 20:57 → OBSVTOIN 05-08 08:34
PROVIDERS: ADMIT Family Medicine; ATTEND Family Medicine
DX: J10.1 Influenza due to other identified influenza virus with other respiratory manifestations (principal); M62.82 Rhabdomyolysis; K57.92 Diverticulitis of intestine, part unspecified, without perforation or abscess without bleeding; I47.1 Supraventricular tachycardia; J20.9 Acute bronchitis, unspecified; R55 Syncope and collapse; E66.8 Other obesity; W18.39XA Other fall on same level, initial encounter; Z68.30 Body mass index [BMI] 30.0-30.9, adult; Y93.89 Activity, other specified; Y92.098 Other place in other non-institutional residence as the place of occurrence of the external cause
CPT/HCPCS: 36415; 70450-TC; 71010-TC; 71020-TC; 71101-TC; 74177-TC; 76775-TC; 76856-TC; 78452-TC; 80053; 80061; 81003; 81015; 82550; 82553; 82803; 83605; 83721; 84443; 84484; 85025; 85610; 85730; 86850; 86900; 86901; 87040; 87086; 87804; 93005; 93010; 93017; 93306-TC; 94640; 97116-GP; 97161-GP; 97164-GP; 99281-25; A9502; G0378; J1644

== ENCOUNTER 2021-01-07 18:26 | Inpatient (IN) | payer OTHER ==
[2021-01-07 19:09] VITALS: BMI 23.0
[2021-01-07] MEDS ORDERED: SODIUM CHLORIDE 0.9% 500 ML INFUS.BAG IV ONE (20:31)
[2021-01-07] MEDS ORDERED: MECLIZINE HCL 25 MG TABLET (FP) PO ONE (20:31)
[2021-01-07 21:17] LABS: BASO % 1.2 % (0-2.0); EOS % 3.6 % (0-4.5); HEMATOCRIT 44.1 % (32.4-45.2); HEMOGLOBIN 15.1 GM/dL (10.7-15.3); LYMPH % 37.9 % (8-40); MCH 29.9 pg (25.7-33.7); MCHC 34.3 g/dl (32.0-36.0); MEAN CELL VOLUME 87.2 fl (80-96); MEAN PLT VOLUME 7.3 fl (7.5-11.1); MONO % 9.5 % (3.8-10.2); NEUT % 47.8 % (42.8-82.8); PLATELET COUNT 323 10^3/uL (134-434); RBC 5.05 M/mm3 (3.60-5.2); RDW 14.2 % (11.6-15.6); WHITE BLOOD COUNT 7.9 K/mm3 (4.0-10.0)
[2021-01-07 21:21] LABS: EPI CELLS 2 /uL (0-25.1); HYALINE CASTS 0 /uL (0-3.1); PH,URINE 5.5 (5.0-8.0); URINE APPEARANCE CLEAR; URINE BACTERIA 24 /uL (0-1359); URINE BILIRUBIN NEGATIVE (NEGATIVE); URINE COLOR YELLOW; URINE GLUCOSE (UA) NEGATIVE (NEGATIVE); URINE KETONE NEGATIVE (NEGATIVE); URINE LEUK ESTERASE TRACE (NEGATIVE); URINE NITRITE NEGATIVE (NEGATIVE); URINE PROTEIN NEGATIVE (NEGATIVE); URINE RBC 3 /uL (0-23.9); URINE UROBILINOGEN 0.2 mg/dL (0.2-1.0); URINE WBC 10 /uL (0-25.8)
[2021-01-07 21:33] LABS: CHLORIDE 109 mmol/L (98-107); SODIUM 140 mmol/L (136-145)
[2021-01-07 21:37] LABS: ANION GAP 7 MMOL/L (8-16); BLOOD UREA NITROGEN 16.7 mg/dL (7-18); CO2 25 mmol/L (21-32); GLUCOSE,RANDOM 91 mg/dL (74-106)
[2021-01-07 21:40] LABS: CREATININE 1.1 mg/dL (0.55-1.3); SGOT/AST 40 U/L (15-37); SGPT/ALT 42 U/L (13-61)
[2021-01-07] MEDS ORDERED: MECLIZINE HCL 25 MG TABLET (FP) ONE (21:41)
[2021-01-07 21:42] LABS: TOT PROT 7.5 g/dl (6.4-8.2)
[2021-01-07 21:43] LABS: ALK PHOS 82 U/L (45-117)
[2021-01-08 07:00] LABS: BASO % 0.8 % (0-2.0); EOS % 3.6 % (0-4.5); HEMATOCRIT 40.8 % (32.4-45.2); HEMOGLOBIN 13.9 GM/dL (10.7-15.3); MCH 30.2 pg (25.7-33.7); MCHC 34.2 g/dl (32.0-36.0); MEAN CELL VOLUME 88.3 fl (80-96); MEAN PLT VOLUME 7.9 fl (7.5-11.1); MONO % 10.1 % (3.8-10.2); NEUT % 45.5 % (42.8-82.8); PLATELET COUNT 309 10^3/uL (134-434); RBC 4.62 M/mm3 (3.60-5.2); RDW 13.9 % (11.6-15.6); WHITE BLOOD COUNT 6.3 K/mm3 (4.0-10.0)
[2021-01-08 07:16] LABS: CALCIUM 8.5 mg/dL (8.5-10.1)
[2021-01-08 07:17] LABS: ALBUMIN 3.6 g/dl (3.4-5.0); MAGNESIUM 2.2 mg/dL (1.8-2.4)
[2021-01-08 07:21] LABS: BILIRUBIN,TOTAL 0.9 mg/dL (0.2-1); TOT PROT 6.4 g/dl (6.4-8.2)
[2021-01-08] MEDS ORDERED: MECLIZINE HCL 25 MG TABLET (FP) PO PRN (08:55)
[2021-01-08] MEDS ORDERED: MECLIZINE HCL 25 MG TABLET (FP) ONE (10:00)
[2021-01-08 11:03] VITALS: BP 171/93; PULSE 77; TEMP 98.6
== END 2021-01-08 11:35 | disposition home or self-care (01) | DRG 149 ==
LOC: JER 18:26 → JERBED 21:38
PROVIDERS: ADMIT Internal Medicine; ATTEND Family Medicine
DX: R42 Dizziness and giddiness (principal); E78.5 Hyperlipidemia, unspecified; R26.81 Unsteadiness on feet; I10 Essential (primary) hypertension; E11.9 Type 2 diabetes mellitus without complications; R29.6 Repeated falls
CPT/HCPCS: 36415; 70450-TC; 71045-TC-FY; 80053; 81003; 82550; 83735; 84484; 85025; 87086; 93005; 93010; 99285-25; C9803; U0003; U0005

== ENCOUNTER 2024-03-07 17:46 | Observation (INO) | payer OTHER ==
[2024-03-07] MEDS ORDERED: MECLIZINE HCL 25 MG TABLET (FP) ONE (20:00)
[2024-03-07] MEDS ORDERED: METOCLOPRAMIDE HCL INJECTION 10 MG/2 ML VIAL ONE (20:00)
[2024-03-07] MEDS ORDERED: ACETAMINOPHEN INJECTION 100 ML ONE (20:00)
[2024-03-07] MEDS: ACETAMINOPHEN 1000 MG/100 ML BAG IVPB ONE (20:17)
[2024-03-07] MEDS: MECLIZINE HCL 25 MG TABLET (FP) PO ONE (20:17)
[2024-03-07] MEDS: METOCLOPRAMIDE HCL INJECTION 10 MG/2 ML VIAL IVPUSH ONE (20:18)
[2024-03-07] MEDS: SODIUM CHLORIDE 0.9% 500 ML INFUS.BAG IV ONE (20:18)
[2024-03-07 20:23] LABS: EOS % 1.9 % (0-4.5); HEMATOCRIT 44.9 % (32.4-45.2); LYMPH % 27.5 % (8-40); MCHC 33.4 g/dl (32.0-36.0); MEAN CELL VOLUME 86.8 fl (80-96); MEAN PLT VOLUME 6.9 fl (7.5-11.1); NEUT % 60.6 % (42.8-82.8); PLATELET COUNT 324 10^3/uL (134-434); RBC 5.17 M/mm3 (3.60-5.2); RDW 13.7 % (11.6-15.6); WHITE BLOOD COUNT 6.6 K/mm3 (4.0-10.0)
[2024-03-07 20:32] LABS: INR 1.01 (0.83-1.09); PROTHROMBIN TIME (PATIENT) 11.6 SEC (9.7-13.0)
[2024-03-07 20:35] LABS: ACTIVATED PTT 31.5 SECONDS (25.2-36.5)
[2024-03-07 21:06] LABS: ALBUMIN 3.7 g/dl (3.4-5.0); BLOOD UREA NITROGEN 19.3 mg/dL (7-18); CALCIUM 9.6 mg/dL (8.5-10.1); MAGNESIUM 2.2 mg/dL (1.8-2.4)
[2024-03-07 21:09] LABS: CREATININE 1.1 mg/dL (0.55-1.3)
[2024-03-07 21:10] LABS: BILIRUBIN,TOTAL 0.9 mg/dL (0.2-1)
[2024-03-08] MEDS ORDERED: MECLIZINE HCL 25 MG TABLET (FP) PO PRN (01:20)
[2024-03-08] MEDS: ASPIRIN 325 MG TABLET PO ONE (02:32)
[2024-03-08 05:19] VITALS: BMI 25.9
[2024-03-08 07:36] LABS: MCH 29.3 pg (25.7-33.7); MCHC 33.4 g/dl (32.0-36.0); MEAN CELL VOLUME 87.7 fl (80-96); PLATELET COUNT 321 10^3/uL (134-434); RBC 4.79 M/mm3 (3.60-5.2); RDW 13.4 % (11.6-15.6); WHITE BLOOD COUNT 6.1 K/mm3 (4.0-10.0)
[2024-03-08 07:56] LABS: POTASSIUM 3.7 mmol/L (3.5-5.1)
[2024-03-08 08:22] LABS: CALCIUM 9.3 mg/dL (8.5-10.1)
[2024-03-08 08:23] LABS: ALBUMIN 3.5 g/dl (3.4-5.0); BLOOD UREA NITROGEN 14.1 mg/dL (7-18)
[2024-03-08 08:25] LABS: BILIRUBIN,TOTAL 1.1 mg/dL (0.2-1); CREATININE 0.9 mg/dL (0.55-1.3); PHOSPHOROUS 2.6 mg/dL (2.5-4.9); TOT PROT 6.4 g/dl (6.4-8.2)
[2024-03-08 08:56] LABS: CHOLESTEROL 178 mg/dL (50-200)
[2024-03-08 08:58] LABS: LDL CHOLESTEROL (ONLY SJRH) 116 mg/dL (5-100)
[2024-03-08 08:59] LABS: HDL CHOLESTEROL 41 mg/dL (40-60)
[2024-03-08] MEDS: ASPIRIN 81 MG CHEWABLE TABLETS PO SCH (10:46)
[2024-03-08] MEDS: ENOXAPARIN NA (PORCINE) 40 MG/0.4 ML DISP.SYRIN SQ SCH (10:46)
[2024-03-08] MEDS: FLU VACCINE (FLULAVAL) PF 45 MCG/0.5 ML SYRINGE 2024-2025 IM ONE (10:51)
[2024-03-08] MEDS: POLYETHYLENE GLYCOL (HEALTHYLAX) 3350 17 GM PACKET PO ONE (10:52)
[2024-03-08] MEDS: CARBAMIDE PEROXIDE 6.5% OTIC 15 ML BOTTLE AD SCH (11:40)
[2024-03-08 12:27] VITALS: BP 194/97; PULSE 75; RESP 18; TEMP 97.9
[2024-03-08] MEDS ORDERED: SENNOSIDES 8.8 MG/5 ML SYRUP PO SCH (22:00)
[2024-03-08] MEDS ORDERED: ATORVASTATIN CA 80 MG TABLET (FP) PO SCH (22:00)
[2024-03-08] MEDS ORDERED: ATORVASTATIN CA 40 MG TABLET (FP) PO SCH (22:00)
== END 2024-03-08 11:44 | disposition home or self-care (01) ==
LOC: JER 17:46 → OBSVTOIN 03-08 00:18 → INTOOBSV 03-08 00:18 → JERBED 03-08 00:18 → J4W 03-08 05:32
PROVIDERS: ADMIT Internal Medicine; ATTEND Internal Medicine
PROC: 3E033NZ Introduction of Analgesics, Hypnotics, Sedatives into Peripheral Vein, Percutaneous Approach (ICD-10-PCS; principal; 2024-03-08)
PROC: 3E033GC Introduction of Other Therapeutic Substance into Peripheral Vein, Percutaneous Approach (ICD-10-PCS; 2024-03-08)
PROC: 3E0337Z Introduction of Electrolytic and Water Balance Substance into Peripheral Vein, Percutaneous Approach (ICD-10-PCS; 2024-03-08)
DX: R42 Dizziness and giddiness (principal); R01.1 Cardiac murmur, unspecified; Z91.013 Allergy to seafood; I10 Essential (primary) hypertension; E78.5 Hyperlipidemia, unspecified; E11.9 Type 2 diabetes mellitus without complications; K57.92 Diverticulitis of intestine, part unspecified, without perforation or abscess without bleeding; H61.21 Impacted cerumen, right ear
CPT/HCPCS: 36415; 70450-TC; 71045-TC-FY; 72125-TC; 80053; 80061; 82962; 83036; 83735; 84100; 84436; 84443; 84484; 85025; 85027; 85610; 85730; 86850; 86900; 86901; 93005; 93010; 96374; 96375; 97116-GP; 97161-GP; 99285-25; G0378; J0131